=== PATIENT | male | born 1960 | race American Indian/Alaskan Native ===

== ENCOUNTER 2020-10-06 16:47 | Emergency (ER) | payer MEDICARE ==
[2020-10-06 19:14] VITALS: BP 126/74
--- NOTE | 2020-10-06 19:24 | Event Note ---
ED Screening Note Date of service: 10/06/20 Time: 19:22 ED Screening Note: 60-year-old male patient with history of sickle cell disease presents to the emergency department with complaints of chest pain, shortness of breath, left ankle pain, and left foot pain. Patient states he fell down the stairs approximately 2 weeks ago. He is unable to estimate how many steps he fell down. Patient also states he "feels like he is anemic" and "needs a chest x- ray" for his chest pain and shortness of breath. Patient states his last sickle cell crisis began with painful swelling to his left lower extremity. General: Awake, appropriately interactive, no acute distress. Neck: Supple. Full range of motion intact. Cardiovascular: Normal peripheral perfusion. Pulmonary: No respiratory distress. Patient is speaking normally without use of accessory muscles. Skin: No apparent rashes or lesions. Neurological: No facial asymmetry. Speech is clear. Follows commands. Patient is alert and oriented. Musculoskeletal: Tenderness to palpation throughout the left ankle and left foot with significant soft tissue swelling. Patient is favoring his right leg while ambulating. Psych: Cooperative. Appropriate mood and affect. I have greeted and performed a focused rapid initial assessment of this patient. A comprehensive ED assessment and evaluation of the patient, analysis of all test results, and completion of the medical decision-making process will be conducted by additional ED providers. This initial assessment/diagnostic orders/clinical plan/treatment(s) is/are subject to change based on patients health status, clinical progression and re-assessment. Further treatment and workup at subsequent clinical provider's discretion. Patient/guardian urged not to elope from the ED as their condition may be serious if not clinically assessed and managed.
[2020-10-06 20:01] LABS: Hemoglobin 8.2 gm/dl (11.8-15.2); Mean Corpuscular HGB Conc 36 % (32-34); Mean Corpuscular Volume 110 fl (84-94); Platelet Count 273 K/mm3 (140-440); Red Cell Distribution Width 17.9 % (13.2-15.2)
--- NOTE | 2020-10-06 20:15 | XRay Report ---
LEFT ANKLE 3 VIEWS INDICATION / CLINICAL INFORMATION: pain/swelling. COMPARISON: None available. FINDINGS: Diffuse subcutaneous edema. No other significant abnormality Signer Name: Junito Madison MD FACR Signed: 10/06/2020 8:11 PM Workstation Name: [id number]
--- NOTE | 2020-10-06 20:15 | XRay Report ---
LEFT FOOT 3 VIEWS INDICATION / CLINICAL INFORMATION: pain/swelling. COMPARISON: None available. FINDINGS: Mild degenerative change in the first metatarsophalangeal joint. No other significant skeletal abnorm ality Signer Name: Junito Madison MD FACR Signed: 10/06/2020 8:10 PM Workstation Name: [id number]
--- NOTE | 2020-10-06 20:16 | XRay Report ---
CHEST 2 VIEWS INDICATION / CLINICAL INFORMATION: chest pain. COMPARISON: None available. FINDINGS: SUPPORT DEVICES: None. HEART / MEDIASTINUM: No significant abnormality. LUNGS / PLEURA: No significant pulmonary or pleural abnormality. No pneumothorax. ADDITIONAL FINDINGS: No significant additional findings. IMPRESSION: No significant abnormality Signer Name: Junito Madison MD FACR Signed: 10/06/2020 8:11 PM Workstation Name: [id number]
[2020-10-06 20:21] LABS: Alanine Aminotransferase 27 units/L (7-56); Albumin 3.6 g/dL (3.9-5); BUN/Creatinine Ratio 10; Blood Urea Nitrogen 15 mg/dL (9-20); Calcium 8.1 mg/dL (8.4-10.2); Hemolysis Index 14
[2020-10-06 20:58] LABS: RBC Morphology Normal; Total Cells Counted 100
--- NOTE | 2020-10-07 01:56 | Emergency Department Report ---
ED Fall HPI - General Chief Complaint: Extremity Injury, Lower Stated Complaint: SWOLLEN LEFT FOOT Time Seen by Provider: 10/07/20 01:49 Source: patient Mode of arrival: Ambulatory - History of Present Illness Initial Comments: 60-year-old -[place] male past medical history of sickle cell disease, chronic back pain, acid reflux disease/peptic ulcers presents emerged department complaining of fall which occurred about 2 weeks ago and resulted and pain and swelling to his left lower extremities. States preceding the fall he had some some general swelling to the left foot and ankle region but he had worsening and continued to linger since the onset. Reports no numbness or tingling, no fever, chills, sweats sweats. He also reevaluate his be sure that he was not severely anemic and also thought that he has been losing weight over the past 3 to 4 months which may have been consistent with heart failure symptoms and wants to be checked and evaluated for heart failure. States he is not yet followed his primary care provider in regards to these concerns or claims no one she is able to take care of that for him today MD Complaint: fall -: week(s) (2) Fall From: standing - Related Data Previous Rx's Medication Instructions Recorded Last Taken Type Acetaminophen/Codeine [Tylenol 1 tab PO Q6H PRN #10 tab 10/07/20 Unknown Rx /Codeine # 3 tab] Allergies Allergy/AdvReac Type Severity Reaction Status Date / Time ibuprofen AdvReac Nausea Verified 10/06/20 17:36 ED Review of Systems ROS: Stated complaint: SWOLLEN LEFT FOOT Other details as noted in HPI Comment: All other systems reviewed and negative ED Past Medical Hx - Past Medical History Previous Medical History?: Yes Hx GERD: Yes Hx Sickle Cell Disease: Yes Additional medical history: Ulcers - Medications Home Medications: Home Medications Medication Instructions Recorded Confirmed Last Taken Type Acetaminophen/Codeine [Tylenol 1 tab PO Q6H PRN #10 tab 10/07/20 Unknown Rx /Codeine # 3 tab] ED Physical Exam - General Limitations: No Limitations General appearance: alert, in no apparent distress - Head Head exam: Present: atraumatic, normocephalic - Eye Eye exam: Present: normal appearance, PERRL, EOMI Pupils: Present: normal accommodation - ENT ENT exam: Present: normal exam, mucous membranes moist, TM's normal bilaterally - Neck Neck exam: Present: normal inspection, full ROM - Respiratory Respiratory exam: Present: normal lung sounds bilaterally. Absent: respiratory distress, wheezes, rales, rhonchi, chest wall tenderness, accessory muscle use - Cardiovascular Cardiovascular Exam: Present: regular rate, normal rhythm. Absent: systolic murmur, diastolic murmur, rubs, gallop - GI/Abdominal GI/Abdominal exam: Present: soft, normal bowel sounds - Rectal Rectal exam: Present: deferred - Extremities Exam Extremities exam: Present: normal inspection, normal capillary refill, pedal edema (Left lower extremity in area of the ankle and foot third of the tibia region. Pulses 2+ cap refill is brisk no cellulitis no lymphangitis. No induration. No ecchymosis), joint swelling. Absent: calf tenderness - Back Exam Back exam: Present: normal inspection. Absent: CVA tenderness (R), CVA tenderness (L) - Neurological Exam Neurological exam: Present: alert, oriented X3, CN II-XII intact, normal gait. Absent: altered - Psychiatric Psychiatric exam: Present: normal affect, normal mood - Skin Skin exam: Present: warm, dry, intact, normal color. Absent: rash, diaphoretic, erythema, urticaria ED Course Vital Signs 10/06/20 19:13 Temperature 98.5 F Pulse Rate 62 Respiratory 18 Rate Blood Pressure 126/74 [Left] O2 Sat by Pulse 97 Oximetry ED Medical Decision Making - Lab Data Result diagrams: 10/06/20 19:35 10/06/20 19:35 Lab Results 10/06/20 10/06/20 10/06/20 Range/Units 19:35 19:35 19:35 WBC 10.0 (4.5-11.0) K/mm3 RBC 2.10 L (3.65-5.03) M/mm3 Hgb 8.2 L (11.8-15.2) gm/dl Hct 23.0 L (35.5-45.6) % MCV 110 H (84-94) fl MCH 39 H (28-32) pg MCHC 36 H (32-34) % RDW 17.9 H (13.2-15.2) % Plt Count 273 (140-440) K/mm3 Add Manual Diff Complete Total Counted 100 Seg Neuts % (Manual) 51.0 (40.0-70.0) % Lymphocytes % (Manual) 30.0 (13.4-35.0) % Monocytes % (Manual) 16.0 H (0.0-7.3) % Eosinophils % (Manual) 2.0 (0.0-4.3) % Basophils % (Manual) 1.0 (0.0-1.8) % Nucleated RBC % 7.0 H (0.0-0.9) % Seg Neutrophils # Man 5.1 (1.8-7.7) K/mm3 Band Neutrophils # 0.0 K/mm3 Lymphocytes # (Manual) 3.0 (1.2-5.4) K/mm3 Abs React Lymphs (Man) 0.0 K/mm3 Monocytes # (Manual) 1.6 H (0.0-0.8) K/mm3 Eosinophils # (Manual) 0.2 (0.0-0.4) K/mm3 Basophils # (Manual) 0.1 (0.0-0.1) K/mm3 Metamyelocytes # 0.0 K/mm3 Myelocytes # 0.0 K/mm3 Promyelocytes # 0.0 K/mm3 Blast Cells # 0.0 K/mm3 WBC Morphology Not Reportable Hypersegmented Neuts Not Reportable Hyposegmented Neuts Not Reportable Hypogranular Neuts Not Reportable Smudge Cells Not Reportable Toxic Granulation Not Reportable Toxic Vacuolation Not Reportable Dohle Bodies Not Reportable Pelger-Huet Anomaly Not Reportable Linda Rods Not Reportable Platelet Estimate Not Reportable Clumped Platelets Not Reportable Plt Clumps, EDTA Not Reportable Large Platelets Not Reportable Giant Platelets Not Reportable Platelet Satelliting Not Reportable Plt Morphology Comment Not Reportable RBC Morphology Normal Dimorphic RBCs Not Reportable Polychromasia Not Reportable Hypochromasia Not Reportable Poikilocytosis Not Reportable Anisocytosis Not Reportable Microcytosis Not Reportable Macrocytosis Not Reportable Spherocytes Not Reportable Pappenheimer Bodies Not Reportable Sickle Cells Not Reportable Target Cells Not Reportable Tear Drop Cells Not Reportable Ovalocytes Not Reportable Helmet Cells Not Reportable [place] Bodies Not Reportable [place] Rings Not Reportable [place] Cells Not Reportable Bite Cells Not Reportable Crenated Cell Not Reportable Elliptocytes Not Reportable Acanthocytes (Spur) Not Reportable Rouleaux Not Reportable Hemoglobin C Crystals Not Reportable Schistocytes Not Reportable Malaria parasites Not Reportable Percent Retic 11.78 H (0.78-2.58) % Job Bodies Not Reportable Hem Pathologist Commnt No Sodium 137 (137-145) mmol/L Potassium 4.0 (3.6-5.0) mmol/L Chloride 102.1 (98-107) mmol/L Carbon Dioxide 22 (22-30) mmol/L Anion Gap 17 mmol/L BUN 15 (9-20) mg/dL Creatinine 1.5 H (0.8-1.3) mg/dL Estimated GFR 58 ml/min BUN/Creatinine Ratio 10 % Glucose 91 (75-100) mg/dL Calcium 8.1 L (8.4-10.2) mg/dL Magnesium 1.80 (1.7-2.3) mg/dL Total Bilirubin 4.00 H (0.1-1.2) mg/dL AST 51 H (5-40) units/L ALT 27 (7-56) units/L Alkaline Phosphatase 137 H (35-129) units/L Troponin T < 0.010 (0.00-0.029) ng/mL Total Protein 8.2 (6.3-8.2) g/dL Albumin 3.6 L (3.9-5) g/dL Albumin/Globulin Ratio 0.8 % Blood Type B POSITIVE Antibody Screen Negative - Radiology Data Radiology results: report reviewed [address] [place] [id number] XRay Report Signed Patient: NICA VIEIRA MR#: [id number] 470 : 1960 Acct:[id number] Age/Sex: 60 / M ADM Date: 10/06/20 Loc: ED Attending Dr: Ordering Physician: DAMON STEIN Date of Service: 10/06/20 Procedure(s): XR chest routine 2V Accession Number(s): [id number] cc: DAMON STEIN Fluoro Time In Minutes: CHEST 2 VIEWS INDICATION / CLINICAL INFORMATION: chest pain. COMPARISON: None available. FINDINGS: SUPPORT DEVICES: None. HEART / MEDIASTINUM: No significant abnormality. LUNGS / PLEURA: No significant pulmonary or pleural abnormality. No pneumothorax. ADDITIONAL FINDINGS: No significant additional findings. IMPRESSION: No significant abnormality Signer Name: Junito Madison MD FACR Signed: 10/06/2020 8:11 PM Workstation Name: [id number] Transcribed By: MS Dictated By: Junito Madison MD Electronically Authenticated By: Junito Madison MD Signed Date/Time: 10/06/202010 DD/ 10 TD/TT: [address] [place] [address] XRay Report Signed Patient: NICA VIEIRA MR#: [id number] : 1960 Acct:[id number] Age/Sex: 60 / M ADM Date: 10/06/20 Loc: ED Attending Dr: Ordering Physician: DAMON STEIN Date of Service: 10/06/20 Procedure(s): XR ankle 3+V LT Accession Number(s): [id number] cc: DAMON STEIN Fluoro Time In Minutes: LEFT ANKLE 3 VIEWS INDICATION / CLINICAL INFORMATION: pain/swelling. COMPARISON: None available. FINDINGS: Diffuse subcutaneous edema. No other significant abnormality Signer Name: Junito Madison MD FACR Signed: 10/06/2020 8:11 PM Workstation Name: [id number] Transcribed By: MS Dictated By: Junito Madison MD Electronically Authenticated By: Junito Madison MD Signed Date/Time: 10/06/202010 DD/ 09 TD/TT: Print Cancel - Medical Decision Making 60-year-old male presents emerged department status post trip and fall suspicious of injury to his lower extremity was found to have no fractures I have otherwise swelling present to the left ankle suggestive of a sprain. The joint was stable he was advised on cold therapy as well as Nikko wrap and analgesic control and management of his pain. He was suspicious for heart failure states he wanted to be evaluated to make sure he did not have heart failure advised patient need to follow-up with cardiology for definitive treatment and management of this issue as his symptoms complaints or findings on examination did not support a current assessment of heart failure. There is a request a couple rounds of morphine prior to discharge as he states that the only thing that will help manage his pain. Critical care attestation.: If time is entered above; I have spent that time in minutes in the direct care of this critically ill patient, excluding procedure time. ED Disposition Clinical Impression: Lower extremity edema, Left ankle strain Disposition: TO HOME OR SELFCARE Is pt being admited?: No Does the pt Need Aspirin: No Condition: Stable Instructions: How to Use a Stirrup Ankle Brace, [id number], Elastic Bandage and RICE Therapy, How to Use Cold Therapy, Peripheral Edema Prescriptions: Acetaminophen/Codeine [Tylenol /Codeine # 3 tab] 1 tab PO Q6H PRN #10 tab PRN Reason: pain Referrals: PRIMARY CAREMD [Primary Care Provider] - 3-5 Days RUBENS MARIE MD [Staff Physician] - 3-5 Days BRAVO VIEIRA MD [Staff Physician] - 3-5 Days
[2020-10-07] MEDS ORDERED: ONDANSETRON 4 MG ODT TAB PO STA (02:41)
[2020-10-07] MEDS ORDERED: MORPHINE 4 MG/1 ML INJ IM STA (02:41)
== END 2020-10-07 03:10 | disposition home or self-care (01) ==
LOC: ED 16:47
DX: S96.912A Strain of unspecified muscle and tendon at ankle and foot level, left foot, initial encounter (principal); R60.0 Localized edema; K21.9 Gastro-esophageal reflux disease without esophagitis; Z88.8 Allergy status to other drugs, medicaments and biological substances; Z79.899 Other long term (current) drug therapy; X58.XXXA Exposure to other specified factors, initial encounter; Y93.89 Activity, other specified; Y92.89 Other specified places as the place of occurrence of the external cause; Y99.8 Other external cause status
CPT/HCPCS: 36415; 71046; 73610; 73630; 80053; 83735; 84484; 85007; 85025; 85045; 86850; 86900; 86901; 96372; 99284; J2270; Q0162

== ENCOUNTER 2022-01-01 17:40 | Inpatient (IN) | payer MEDICARE ==
--- NOTE | 2022-01-01 18:01 | Event Note ---
Date: 01/01/22 Medical screening examination note: 61-year-old gentleman brought to the hospital by EMS with an EMS articulated complaint of painless tachycardia. Patient has a history of atrial fibrillation or flutter, status post ablation. He also reports a history of hypertension. The patient reports that he goes to [facility]. The patient does not know s pecifically what medications he takes. Patient is tachycardic to 120, but otherwise, blood pressure stable, protecting airway, mildly anxious, but not in significant distress. Obtain appropriate laboratory studies, twelve-lead EKG, detailed history and physical to be performed by myself or oncoming provider.
--- NOTE | 2022-01-01 18:35 | XRay Report ---
CHEST 1 VIEW 01/01/2022 6:19 PM INDICATION / CLINICAL INFORMATION: Tachycardia. COMPARISON: None available. FINDINGS: SUPPORT DEVICES: None. HEART / MEDIASTINUM: No significant abnormality. LUNGS / PLEURA: No significant pulmonary or pleural abnormality. No pneumothorax. ADDITIONAL FINDINGS: No significant additional findings. IMPRESSION: 1. No acute findings. Signer Name: German Ramesh MD Signed: 01/01/2022 6:30 PM Workstation Name: [id number]
[2022-01-01 19:00] LABS: Basophils # (Auto) 0.1 K/mm3 (0.0-0.1); Basophils % (Auto) 1.2 % (0.0-1.8); Eosinophils # (Auto) 0.1 K/mm3 (0.0-0.4); Eosinophils % (Auto) 0.7 % (0.0-4.3); Hematocrit 25.8 % (35.5-45.6); Hemoglobin 9.1 gm/dl (11.8-15.2); Lymphocytes % (Auto) 10.1 % (13.4-35.0); Mean Corpuscular HGB Conc 35 % (32-34); Mean Corpuscular Volume 105 fl (84-94); Monocytes # (Auto) 1.3 K/mm3 (0.0-0.8); Monocytes % (Auto) 13.1 % (0.0-7.3); Platelet Count 244 K/mm3 (140-440); Red Blood Count 2.45 M/mm3 (3.65-5.03); Red Cell Distribution Width 18.8 % (13.2-15.2)
[2022-01-01 19:10] LABS: INR 1.08 (0.87-1.13)
[2022-01-01 19:23] LABS: Alanine Aminotransferase 29 units/L (7-56); BUN/Creatinine Ratio 15; Blood Urea Nitrogen 20 mg/dL (9-20); Calcium 8.5 mg/dL (8.4-10.2); Hemolysis Index 161
[2022-01-01] MEDS ORDERED: LACTATED RINGERS 1,000 ML IV ONE (20:43)
[2022-01-01] MEDS ORDERED: diazePAM 10 MG/2 ML SYRINGE IV ONE (20:43)
[2022-01-01] MEDS ORDERED: LORazepam 2 MG/ML VIAL IV PRN ×3 (20:43)
--- NOTE | 2022-01-01 20:46 | Emergency Department Report ---
ED General Adult HPI - General Chief complaint: Dizziness Stated complaint: TACHYCARDIA Time Seen by Provider: 01/01/22 20:12 Source: patient, EMS (Verbal report received from emergency medical services. EMS documentation not available at time of chart dictation ), RN notes reviewed, old records reviewed Mode of arrival: Stretcher Limitations: No Limitations - History of Present Illness Initial comments: The patient was evaluated in the emergency department for symptoms described in the history of present illness. He/she was evaluated in the context of the global COVID-19 pandemic, which necessitated consideration that the patient might be at risk for infection with the virus that causes COVID-19. Institutional protocols and algorithms that pertain to the evaluation of patients at risk for COVID-19 are in a state of rapid change based on in formation released by regulatory bodies including the CDC and federal and state organizations. These policies and algorithms were followed during the patient's care in the emergency department. Please note that these policies, procedures and recommendations changed on a rapid basis. This patient is a 61-year-old gentleman, who has not been sexually active for 2 years, with a history of sickle cell, a flutter, status post ablation, not currently on systemic anticoagulation, presenting to the department today with a primary complaints of chest pressure, and rapid heartbeat. No headache, neck pain, abdominal pain, vomiting, diaphoresis. On review of systems, endorses sensation of bug crawling and tactile hallucinations on the face for about 6 months. He is not homicidal suicidal. He has a nonspecific nonblanching macular rash on his bilateral palms, chest, and abdomen. He reports no sexual activity and he reports no IV drug use. He still has his spleen, but reports a distant history of cholecystectomy. He does not recall the medications that he takes. Severity scale (0 -10): 0 Consistency: constant Improves with: none Worsens with: none - Related Data Previous Rx's Medication Instructions Recorded Last Taken Type Acetaminophen/Codeine [Tylenol 1 tab PO Q6H PRN #10 tab 10/07/20 Unknown Rx /Codeine # 3 tab] Allergies Allergy/AdvReac Type Severity Reaction Status Date / Time ibuprofen AdvReac Nausea Verified 10/06/20 17:36 ED Review of Systems ROS: Stated complaint: TACHYCARDIA Other details as noted in HPI Constitutional: denies: fever ENT: denies: epistaxis Respiratory: denies: cough Cardiovascular: palpitations. denies: chest pain Gastrointestinal: abdominal pain. denies: hematemesis, melena, hematochezia Genitourinary: denies: dysuria Musculoskeletal: denies: back pain, arthralgia, myalgia Skin: rash, lesions Neurological: denies: weakness, confusion Psychiatric: auditory hallucinations, visual hallucinations. denies: homicidal thoughts, suicidal thoughts Hematological/Lymphatic: denies: easy bleeding ED Past Medical Hx - Past Medical History Hx GERD: Yes Hx Sickle Cell Disease: Yes Additional medical history: Ulcers, cardiac hx - Surgical History Additional Surgical History: ablation - Medications Home Medications: Home Medications Medication Instructions Recorded Confirmed Last Taken Type Acetaminophen/Codeine [Tylenol 1 tab PO Q6H PRN #10 tab 10/07/20 Unknown Rx /Codeine # 3 tab] ED Physical Exam - General Limitations: No Limitations General appearance: alert, anxious - Head Head exam: Present: atraumatic, normocephalic - Eye Eye exam: Present: normal appearance, EOMI. Absent: nystagmus - ENT ENT exam: Present: normal orophraynx, mucous membranes moist, normal external ear exam, other (Minimal tongue fasciculations noted) - Neck Neck exam: Present: normal inspection, full ROM. Absent: tenderness, meningismus - Respiratory Respiratory exam: Present: normal lung sounds bilaterally. Absent: respiratory distress, wheezes, rales, rhonchi, stridor - Cardiovascular Cardiovascular Exam: Present: normal rhythm, tachycardia, normal heart sounds. Absent: bradycardia, systolic murmur, diastolic murmur, rubs, gallop - GI/Abdominal GI/Abdominal exam: Present: soft. Absent: distended, tenderness, guarding, rebound, rigid, pulsatile mass - Rectal Rectal exam: Present: deferred - Extremities Exam Extremities exam: Present: full ROM, other (2+ pulses noted in the bilateral upper and lower extremities. There is no palpable cord. negative Homans sign. Muscular compartments are soft. The pelvis is stable.). Absent: normal inspection, pedal edema, calf tenderness - Back Exam Back exam: Present: normal inspection. Absent: tenderness, CVA tenderness (R), CVA tenderness (L), paraspinal tenderness, vertebral tenderness - Neurological Exam Neurological exam: Present: alert, oriented X3, other (No facial droop. Tongue midline. Extraocular movements intact bilaterally. Facial sensation intact to light touch in V1, V2, V3 distribution bilaterally. 5 and a 5 strength in 4 e xtremities. Sensation intact to light touch in 4 extremities.). Absent: motor sensory deficit - Psychiatric Psychiatric exam: Present: anxious. Absent: homicidal ideation, suicidal ideation - Skin Skin exam: Present: warm, dry, intact, rash (Nonblanching macules on the bilateral palms, chest, abdomen and thorax). Absent: diaphoretic, erythema, urticaria, vesicles, pallor, abrasion, ecchymosis ED Course Vital Signs 01/01/22 01/01/22 17:51 20:34 Temperature 99.3 F 98.5 F Pulse Rate 120 H 115 H Respiratory 18 18 Rate Blood Pressure 118/86 167/92 [Left] O2 Sat by Pulse 99 98 Oximetry - Reevaluation(s) Reevaluation #1: 01/01/22 21:58 Differential diagnosis, include but not limited to: Electrolyte derangement, thyroid derangement, sickle cell anemia, macrocytic anemia, alcohol withdrawal, A. fib/flutter with RVR, syphilis, pulmonary embolism 61-year-old gentleman who was tachycardic, but awake, alert, oriented, sober of sound mind, with a GCS of 15, presenting with a primary complaint of tachyca rdia. EKG shows a narrow complex tachycardia, which to me appears to be consistent with atrial flutter with 2:1 conduction. His laboratory studies show chronic microcytic anemia, with unremarkable iron studies. His TSH is nonactionable. He also has nonblanching macules on his palms, chest, and thorax, denies sexual contact, suspicious for syphilis. We will obtain CT scan of the brain. Unfortunately, not able to obtain CT angiogram chest secondary to inability to establish 20-gauge IV access in the antecubital fossa as required by our protocol. Should no bleed or contraindication be noted on CT scan brain, we will empirically anticoagulate the patient, and ordered nuclear medicine study. We will continue diltiazem trial bolusing, and if necessary, initiated diltiazem drip, or switch to metoprolol. I personally administered 10 mg of diltiazem to this patient, without change in rate. In addition, he received 5 mg of Valium, without significant change in rate. This patient is agreeable to admission and hospitalization. 01/01/22 21:59 01/01/22 22:38 CT scan brain negative for acute findings. Lovenox ordered. Went back to patient's bedside with additional diltiazem. 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 Currently, heart rate in the 90s, with variable flutter conduction. Patient is agreeable to admission hospitalization. Oral diltiazem is ordered. Hospital physician, Dr. Hale to admit to [id number] At this point time, I think and pulmonary embolism is very unlikely. Lovenox will cover in case there is a pulmonary embolism. I have ordered a nuclear medicine study, which we cannot obtain at this point in time, then we will defer to the inpatient team to followed up ED Medical Decision Making - Lab Data Result diagrams: 01/01/22 18:38 01/01/22 18:38 Vital Signs 01/01/22 01/01/22 17:51 20:34 Temperature 99.3 F 98.5 F Pulse Rate 120 H 115 H Respiratory 18 18 Rate Blood Pressure 118/86 167/92 [Left] O2 Sat by Pulse 99 98 Oximetry Lab Results 01/01/22 01/01/22 01/01/22 Range/Units 18:38 18:38 18:38 WBC 9.9 (4.5-11.0) K/mm3 RBC 2.45 L (3.65-5.03) M/mm3 Hgb 9.1 L (11.8-15.2) gm/dl Hct 25.8 L (35.5-45.6) % MCV 105 H (84-94) fl MCH 37 H (28-32) pg MCHC 35 H (32-34) % RDW 18.8 H (13.2-15.2) % Plt Count 244 (140-440) K/mm3 Lymph % (Auto) 10.1 L (13.4-35.0) % Cache % (Auto) 13.1 H (0.0-7.3) % Eos % (Auto) 0.7 (0.0-4.3) % Baso % (Auto) 1.2 (0.0-1.8) % Lymph # (Auto) 1.0 L (1.2-5.4) K/mm3 Cache # (Auto) 1.3 H (0.0-0.8) K/mm3 Eos # (Auto) 0.1 (0.0-0.4) K/mm3 Baso # (Auto) 0.1 (0.0-0.1) K/mm3 Seg Neutrophils % 74.9 H (40.0-70.0) % Seg Neutrophils # 7.4 (1.8-7.7) K/mm3 PT 15.5 H (12.2-14.9) Sec. INR 1.08 (0.87-1.13) Sodium 138 (137-145) mmol/L Potassium 5.3 H (3.6-5.0) mmol/L Chloride 108.0 H (98-107) mmol/L Carbon Dioxide 18 L (22-30) mmol/L Anion Gap 17 mmol/L BUN 20 (9-20) mg/dL Creatinine 1.3 (0.8-1.3) mg/dL Estimated GFR > 60 ml/min BUN/Creatinine Ratio 15 % Glucose 97 (75-100) mg/dL Calcium 8.5 (8.4-10.2) mg/dL Magnesium 1.70 (1.7-2.3) mg/dL Iron (49-181) ug/dL TIBC (250-450) mcg/dL Ferritin (30.0-300.0) ng/mL Total Bilirubin 4.30 H (0.1-1.2) mg/dL AST 73 H (5-40) units/L ALT 29 (7-56) units/L Alkaline Phosphatase 163 H (35-129) units/L Troponin T (0.00-0.029) ng/mL Total Protein 8.4 H (6.3-8.2) g/dL Albumin 4.0 (3.9-5) g/dL Albumin/Globulin Ratio 0.9 % TSH (0.270-4.200) mlU/mL Free T4 (0.76-1.46) ng/dL 01/01/22 01/01/22 01/01/22 Range/Units 18:38 18:38 20:40 WBC (4.5-11.0) K/mm3 RBC (3.65-5.03) M/mm3 Hgb (11.8-15.2) gm/dl Hct (35.5-45.6) % MCV (84-94) fl MCH (28-32) pg MCHC (32-34) % RDW (13.2-15.2) % Plt Count (140-440) K/mm3 Lymph % (Auto) (13.4-35.0) % Cache % (Auto) (0.0-7.3) % Eos % (Auto) (0.0-4.3) % Baso % (Auto) (0.0-1.8) % Lymph # (Auto) (1.2-5.4) K/mm3 Cache # (Auto) (0.0-0.8) K/mm3 Eos # (Auto) (0.0-0.4) K/mm3 Baso # (Auto) (0.0-0.1) K/mm3 Seg Neutrophils % (40.0-70.0) % Seg Neutrophils # (1.8-7.7) K/mm3 PT (12.2-14.9) Sec. INR (0.87-1.13) Sodium (137-145) mmol/L Potassium (3.6-5.0) mmol/L Chloride (98-107) mmol/L Carbon Dioxide (22-30) mmol/L Anion Gap mmol/L BUN (9-20) mg/dL Creatinine (0.8-1.3) mg/dL Estimated GFR ml/min BUN/Creatinine Ratio % Glucose (75-100) mg/dL Calcium (8.4-10.2) mg/dL Magnesium (1.7-2.3) mg/dL Iron (49-181) ug/dL TIBC (250-450) mcg/dL Ferritin (30.0-300.0) ng/mL Total Bilirubin (0.1-1.2) mg/dL AST (5-40) units/L ALT (7-56) units/L Alkaline Phosphatase (35-129) units/L Troponin T < 0.010 (0.00-0.029) ng/mL Total Protein (6.3-8.2) g/dL Albumin (3.9-5) g/dL Albumin/Globulin Ratio % TSH 2.470 (0.270-4.200) mlU/mL Free T4 1.27 (0.76-1.46) ng/dL 01/01/22 01/01/22 Range/Units 20:40 21:07 WBC (4.5-11.0) K/mm3 RBC (3.65-5.03) M/mm3 Hgb (11.8-15.2) gm/dl Hct (35.5-45.6) % MCV (84-94) fl MCH (28-32) pg MCHC (32-34) % RDW (13.2-15.2) % Plt Count (140-440) K/mm3 Lymph % (Auto) (13.4-35.0) % Cache % (Auto) (0.0-7.3) % Eos % (Auto) (0.0-4.3) % Baso % (Auto) (0.0-1.8) % Lymph # (Auto) (1.2-5.4) K/mm3 Cache # (Auto) (0.0-0.8) K/mm3 Eos # (Auto) (0.0-0.4) K/mm3 Baso # (Auto) (0.0-0.1) K/mm3 Seg Neutrophils % (40.0-70.0) % Seg Neutrophils # (1.8-7.7) K/mm3 PT (12.2-14.9) Sec. INR (0.87-1.13) Sodium (137-145) mmol/L Potassium (3.6-5.0) mmol/L Chloride (98-107) mmol/L Carbon Dioxide (22-30) mmol/L Anion Gap mmol/L BUN (9-20) mg/dL Creatinine (0.8-1.3) mg/dL Estimated GFR ml/min BUN/Creatinine Ratio % Glucose (75-100) mg/dL Calcium (8.4-10.2) mg/dL Magnesium (1.7-2.3) mg/dL Iron 185 H (49-181) ug/dL TIBC 300 (250-450) mcg/dL Ferritin 507.5 H (30.0-300.0) ng/mL Total Bilirubin (0.1-1.2) mg/dL AST (5-40) units/L ALT (7-56) units/L Alkaline Phosphatase (35-129) units/L Troponin T (0.00-0.029) ng/mL Total Protein (6.3-8.2) g/dL Albumin (3.9-5) g/dL Albumin/Globulin Ratio % TSH (0.270-4.200) mlU/mL Free T4 (0.76-1.46) ng/dL - EKG Data 01/01/22 21:56 The emergency room EKG is interpreted at 20: 24 This is a narrow complex tachycardia, with a rate of 117 bpm, with a left axis deviation, and a left anterior fascicular block. There is poor R wave progression. Suspect a flutter, with 2: 1 conduction. - Radiology Data Radiology results: pending, report reviewed, image reviewed CHEST 1 VIEW 01/01/2022 6:19 PM INDICATION / CLINICAL INFORMATION: Tachycardia. COMPARISON: None available. FINDINGS: SUPPORT DEVICES: None. HEART / MEDIASTINUM: No significant abnormality. LUNGS / PLEURA: No significant p ulmonary or pleural abnormality. No pneumothorax. ADDITIONAL FINDINGS: No significant additional findings. IMPRESSION: 1. No acute findings. Signer Name: German Ramesh MD Signed: 01/01/2022 5:30 PM Workstation Name: [id number] Critical Care Time: Yes Critical care time in (mins) excluding proc time.: 35 Critical care attestation.: If time is entered above; I have spent that time in minutes in the direct care of this critically ill patient, excluding procedure time. ED Disposition Clinical Impression: Tactile hallucination, Macrocytic anemia, Macular rash, Atrial flutter with rapid ventricular response Disposition: ADMITTED INPATIENT Is pt being admited?: Yes Does the pt Need Aspirin: No Condition: Good Referrals: NUPUR MALDONADO MD [Primary Care Provider] - 3-5 Days
[2022-01-01 21:39] LABS: Total Iron Binding Capacity 300 mcg/dL (250-450)
[2022-01-01 21:45] LABS: Iron 185 ug/dL (49-181)
[2022-01-01] MEDS ORDERED: dilTIAZem 25 MG/5 ML INJ IV ONE ×2 (21:50→21:54)
--- NOTE | 2022-01-01 22:22 | Cat Scan Report ---
CT HEAD WITHOUT CONTRAST INDICATION / CLINICAL INFORMATION: Tactile hallucinations. TECHNIQUE: All CT scans at this location are performed using CT dose reduction for ALARA by means of automated exposure control. COMPARISON: None available. FINDINGS: HEMORRHAGE: None. EXTRA-AXIAL SPACES: Normal in size and morphology for the patient's age. VENTRICULAR SYSTEM: Normal in size and morphology for the patient's age. CEREBRAL PARENCHYMA: No significant abnormality. No acute territorial infarct. MIDLINE SHIFT / HERNIATION: None. CEREBELLUM / BRAINSTEM: No significant abnormality. ORBITS: Normal as visualized. SOFT TISSUES: No significant abnormality. SKULL: No significant abnormality. PARANASAL SINUSES / MASTOID AIR CELLS: Normal as visualized. ADDITIONAL FINDINGS: None. IMPRESSION: 1. No acute intracranial abnormality. Signer Name: Jordan Banegas MD Signed: 01/01/2022 10:18 PM Workstation Name: [id number]
[2022-01-01] MEDS ORDERED: ENOXAPARIN 100 MG/1 ML INJ SUB-Q STA (22:37)
[2022-01-01] MEDS ORDERED: dilTIAZem 30 MG TAB PO ONE (22:37)
[2022-01-01] MEDS ORDERED: ONDANSETRON 4 MG/2 ML INJ IV PRN (22:39)
[2022-01-01] MEDS ORDERED: ACETAMINOPHEN 325 MG TAB PO PRN (22:39)
[2022-01-02] MEDS ORDERED: dilTIAZem 30 MG TAB PO ONE (03:30)
[2022-01-02] MEDS ORDERED: ENOXAPARIN 100 MG/1 ML INJ SUB-Q STA (03:30)
[2022-01-02] MEDS ORDERED: MORPHINE 4 MG/1 ML INJ IV PRN (03:48)
[2022-01-02] MEDS ORDERED: traMADol 50 MG TAB PO PRN (03:48)
[2022-01-02] MEDS ORDERED: ACETAMINOPHEN 325 MG TAB PO PRN (03:48)
[2022-01-02] MEDS ORDERED: NITROGLYCERIN 0.4 MG TAB SUBL SL PRN (03:48)
--- NOTE | 2022-01-02 03:56 | History and Physical Report ---
History of Present Illness Date of examination: 01/02/22 Date of admission: 01/01/22 22:39 Chief complaint: Dizziness Tachycardia History of present illness: 61-year-old gentleman with history of sickle cell, a flutter, status post ablation, not currently on systemic anticoagulation, presenting to the department today with a primary complaints of chest pressure, and rapid heartbeat. No headache, neck pain, abdominal pain, vomiting, diaphoresis. On review of systems, endorses sensation of bug crawling and tactile hallucinations on the face for about 6 months.He is not homicidal suicidal. He has a nonspecific nonblanching macular rash on his bilateral palms, chest, and abdomen. He reports no sexual activity and he reports no IV drug use. He still has his spleen, but reports a distant history of cholecystectomy. He does not recall the medications that he takes. In the emergency room EKG showed narrow complex tachycardia, with a rate of 117 bpm, with a left axis deviation, and a left anterior fascicular block. There is poor R wave progression. Suspect a flutter, with 2: [address] scan brain negative for acute findings. Lovenox ordered. Went back to patient's bedside with additional diltiazem. 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 Currently, heart rate in the 90s, with variable flutter conduction. Past History Past Medical History: GERD, other (Sickle cell disease ulcers and cardiac history) Past Surgical History: Other (Ablation) Social history: no significant social history Family history: hypertension Medications and Allergies Allergies Allergy/AdvReac Type Severity Reaction Status Date / Time ibuprofen AdvReac Nausea Verified 10/06/20 17:36 Home Medications Medication Instructions Recorded Confirmed Last Taken Type Acetaminophen/Codeine [Tylenol 1 tab PO Q6H PRN #10 tab 10/07/20 Unknown Rx /Codeine # 3 tab] Active Meds: Active Medications Acetaminophen (Acetaminophen 325 Mg Tab) 650 mg PO Q4H PRN PRN Reason: Pain MILD(1-3)/Fever >100.5/CAR Lorazepam (Lorazepam 2 Mg/Ml Vial) 2 mg IV Q1HR PRN PRN Reason: CIWA-Ar 8-15 Lorazepam (Lorazepam 2 Mg/Ml Vial) 4 mg IV Q1HR PRN PRN Reason: CIWA-Ar 16-25 Lorazepam (Lorazepam 2 Mg/Ml Vial) 4 mg IV Q15MIN PRN PRN Reason: CIWA-Ar >25 Ondansetron HCl (Ondansetron 4 Mg/2 Ml Inj) 4 mg IV Q8H PRN PRN Reason: Nausea And Vomiting Sodium Chloride (Sodium Chloride 0.9% 10 Ml Flush Syringe) 10 ml IV BID JYOTI Sodium Chloride (Sodium Chloride 0.9% 10 Ml Flush Syringe) 10 ml IV PRN PRN PRN Reason: LINE FLUSH Review of Systems All systems: negative Cardiovascular: palpitations, other (Tachycardia dizziness) Exam - Constitutional Vitals: Temp Pulse Resp BP Pulse Ox 98.5 F 112 H 18 152/78 98 01/01/22 20:34 01/02/22 02:46 01/01/22 20:34 01/02/22 02:46 01/01/22 20:34 General appearance: Present: no acute distress, well-nourished - EENT Eyes: Present: PERRL ENT: hearing intact, clear oral mucosa - Neck Neck: Present: supple, normal ROM - Respiratory Respiratory effort: normal Respiratory: bilateral: CTA - Cardiovascular Heart Sounds: Present: S1 & S2. Absent: rub, click - Extremities Extremities: pulses symmetrical, No edema Peripheral Pulses: within normal limits - Abdominal General gastrointestinal: Present: soft, non-tender, non-distended, normal bowel sounds Male genitourinary: Present: normal - Integumentary Integumentary: Present: clear, warm, dry - Musculoskeletal Musculoskeletal: gait normal, strength equal bilaterally - Psychiatric Psychiatric: appropriate mood/affect, intact judgment & insight - Neurologic Neurologic: CNII-XII intact, moves all extremities HEART Score - HEART Score Troponin: Troponin T < 0.010 ng/mL (0.00-0.029) 01/01/22 20:40 Results - Labs CBC & Chem 7: 01/01/22 18:38 01/01/22 18:38 Labs: Laboratory Last Values WBC 9.9 K/mm3 (4.5-11.0) 01/01/22 18:38 RBC 2.45 M/mm3 (3.65-5.03) L 01/01/22 18:38 Hgb 9.1 gm/dl (11.8-15.2) L 01/01/22 18:38 Hct 25.8 % (35.5-45.6) L 01/01/22 18:38 MCV 105 fl (84-94) H 01/01/22 18:38 MCH 37 pg (28-32) H 01/01/22 18:38 MCHC 35 % (32-34) H 01/01/22 18:38 RDW 18.8 % (13.2-15.2) H 01/01/22 18:38 Plt Count 244 K/mm3 (140-440) 01/01/22 18:38 Lymph % (Auto) 10.1 % (13.4-35.0) L 01/01/22 18:38 Casey % (Auto) 13.1 % (0.0-7.3) H 01/01/22 18:38 Eos % (Auto) 0.7 % (0.0-4.3) 01/01/22 18:38 Baso % (Auto) 1.2 % (0.0-1.8) 01/01/22 18:38 Lymph # (Auto) 1.0 K/mm3 (1.2-5.4) L 01/01/22 18:38 Casey # (Auto) 1.3 K/mm3 (0.0-0.8) H 01/01/22 18:38 Eos # (Auto) 0.1 K/mm3 (0.0-0.4) 01/01/22 18:38 Baso # (Auto) 0.1 K/mm3 (0.0-0.1) 01/01/22 18:38 Seg Neutrophils % 74.9 % (40.0-70.0) H 01/01/22 18:38 Seg Neutrophils # 7.4 K/mm3 (1.8-7.7) 01/01/22 18:38 PT 15.5 Sec. (12.2-14.9) H 01/01/22 18:38 INR 1.08 (0.87-1.13) 01/01/22 18:38 D-Dimer 1430.44 ng/mlDDU (0-234) H 01/01/22 21:07 Sodium 138 mmol/L (137-145) 01/01/22 18:38 Potassium 5.3 mmol/L (3.6-5.0) H 01/01/22 18:38 Chloride 108.0 mmol/L (98-107) H 01/01/22 18:38 Carbon Dioxide 18 mmol/L (22-30) L 01/01/22 18:38 Anion Gap 17 mmol/L 01/01/22 18:38 BUN 20 mg/dL (9-20) 01/01/22 18:38 Creatinine 1.3 mg/dL (0.8-1.3) 01/01/22 18:38 Estimated GFR > 60 ml/min 01/01/22 18:38 BUN/Creatinine Ratio 15 % 01/01/22 18:38 Glucose 97 mg/dL (75-100) 01/01/22 18:38 Calcium 8.5 mg/dL (8.4-10.2) 01/01/22 18:38 Magnesium 1.70 mg/dL (1.7-2.3) 01/01/22 18:38 Iron 185 ug/dL (49-181) H 01/01/22 21:07 TIBC 300 mcg/dL (250-450) 01/01/22 21:07 Ferritin 507.5 ng/mL (30.0-300.0) H 01/01/22 20:40 Total Bilirubin 4.30 mg/dL (0.1-1.2) H 01/01/22 18:38 AST 73 units/L (5-40) H 01/01/22 18:38 ALT 29 units/L (7-56) 01/01/22 18:38 Alkaline Phosphatase 163 units/L (35-129) H 01/01/22 18:38 Troponin T < 0.010 ng/mL (0.00-0.029) 01/01/22 20:40 Total Protein 8.4 g/dL (6.3-8.2) H 01/01/22 18:38 Albumin 4.0 g/dL (3.9-5) 01/01/22 18:38 Albumin/Globulin Ratio 0.9 % 01/01/22 18:38 TSH 2.470 mlU/mL (0.270-4.200) 01/01/22 18:38 Free T4 1.27 ng/dL (0.76-1.46) 01/01/22 18:38 Salicylates < 0.3 mg/dL (2.8-20.0) L 01/01/22 21:07 Acetaminophen 5.0 ug/mL (10.0-30.0) L 01/01/22 21:07 Plasma/Serum Alcohol 0.01 % (0-0.07) 01/01/22 21:07 Syphilis IgG/IgM Ab Nonreactive (NonReactive) 01/01/22 20:48 - Imaging and Cardiology Chest x-ray: report reviewed CT Scan - head: report reviewed Assessment and Plan VTE prophylaxis?: Chemical Plan of care discussed with patient/family: Yes - Patient Problems (1) Atrial flutter with rapid ventricular response Current Visit: Yes Status: Acute Plan to address problem: Admit the patient to the medical telemetry. Aspirin 325 mg p.o. daily. Lipitor 40 mg p.o. daily. Lopressor 25 mg p.o. twice daily. Lovenox 1 mg/kg SQ every 12 hours. Echocardiogram. Cardiology evaluation (2) Macrocytic anemia Current Visit: Yes Status: Acute Plan to address problem: Stable. We will recheck the CBC in the morning (3) Macular rash Current Visit: Yes Status: Acute Plan to address problem: We will monitor the patient closely. We will put the patient on Benadryl ointment. If needed consult dermatology (4) Tactile hallucination Current Visit: Yes Status: Acute Plan to address problem: We will monitor the patient closely . We will consult psych for evaluation (5) DVT prophylaxis Current Visit: Yes Status: Acute Plan to address problem: Lovenox 1 mg/kg subcu every 12 hours for DVT prophylaxis. Pepcid 20 mg p.o. twice daily for GI prophylaxis. Patient is a full code
[2022-01-02 04:21] LABS: Color,Urine Yellow (Yellow)
[2022-01-02] MEDS: SODIUM CHLORIDE 0.9% 1000 ML 1,000 ML IV SCH (05:00)
--- NOTE | 2022-01-02 08:09 | Nuclear Medicine Report ---
NUCLEAR MEDICINE PERFUSION SCAN INDICATION: Tachycardia and elevated D-dimer, chest CORRELATION: AP chest performed yesterday RADIOPHARMACEUTICAL: Perfusion: 5.3 mCi Tc-99m MAA given IV FINDINGS: Perfusion images show symmetric and uniform radiotracer distribution throughout bilateral lung zones with no evidence of unmatched segmental perfusion defects. Normal cardiac silhouette. IMPRESSION: No evidence for pulmonary embolus. Signer Name: Sukhi Dahl Jr, MD Signed: 01/02/2022 8:05 AM Workstation Name: [id number]
[2022-01-02 08:23] LABS: Hematocrit 20.2 % (35.5-45.6); Hemoglobin 7.1 gm/dl (11.8-15.2); Mean Corpuscular HGB Conc 35 % (32-34); Mean Corpuscular Volume 106 fl (84-94); Platelet Count 217 K/mm3 (140-440); Red Blood Count 1.91 M/mm3 (3.65-5.03); Red Cell Distribution Width 18.6 % (13.2-15.2)
[2022-01-02 08:43] LABS: BUN/Creatinine Ratio 13; Blood Urea Nitrogen 17 mg/dL (9-20); Calcium 8.3 mg/dL (8.4-10.2); Hemolysis Index 18
[2022-01-02 08:49] LABS: Chol/HDL Ratio 2.41 %
[2022-01-02] MEDS ORDERED: METOPROLOL TARTRATE 25 MG TAB PO SCH (10:00)
--- NOTE | 2022-01-02 11:12 | Consultation ---
History of Present Illness Consult date: 01/02/22 History of present illness: 57-year-old male with history of atrial fibrillation/flutter status post ablation in 2020 at [facility] COPD came into the emergency room because he was having rapid heart rate for the past 4 to 5 days. He walked around yesterday and felt dizzy and lightheaded that what made him to come to the emergency room. He also may have some chest pain, but unclear. He denies any shortness of breath orthopnea PND or syncope. In the emergency room patient had found to be tachycardic. He was started on beta-roland which helped his rate to be controlled. Past History Past Medical History: GERD, other (Sickle cell disease ulcers and atrial fibrillation/flutter (unclear)) Past Surgical History: Other (Ablation likely for atrial flutter) Social history: no significant social history Family history: hypertension Medications and Allergies Allergies Allergy/AdvReac Type Severity Reaction Status Date / Time ibuprofen AdvReac Nausea Verified 10/06/20 17:36 Home Medications Medication Instructions Recorded Confirmed Last Taken Type Acetaminophen/Codeine [Tylenol 1 tab PO Q6H PRN #10 tab 10/07/20 Unknown Rx /Codeine # 3 tab] Active Meds: Active Medications Acetaminophen (Acetaminophen 325 Mg Tab) 650 mg PO Q6H PRN PRN Reason: Pain, Mild (1-3) Aspirin (Aspirin Ec 325 Mg Tab) 325 mg PO QDAY JYOTI Atorvastatin Calcium (Atorvastatin 40 Mg Tab) 40 mg PO QHS JYOTI Enoxaparin Sodium (Enoxaparin 60 Mg/0.6 Ml Inj) 60 mg SUB-Q Q12H JYOTI; Protocol Sodium Chloride (Nacl 0.9% 1000 Ml) 1,000 mls @ 100 mls/hr IV DIRECT JYOTI Last Admin: 01/02/22 05:00 Dose: 100 mls/hr Lorazepam (Lorazepam 2 Mg/Ml Vial) 2 mg IV Q1HR PRN PRN Reason: CIWA-Ar 8-15 Lorazepam (Lorazepam 2 Mg/Ml Vial) 4 mg IV Q1HR PRN PRN Reason: CIWA-Ar 16-25 Lorazepam (Lorazepam 2 Mg/Ml Vial) 4 mg IV Q15MIN PRN PRN Reason: CIWA-Ar >25 Metoprolol Tartrate (Metoprolol Tartrate 25 Mg Tab) 50 mg PO BID JYOTI Morphine Sulfate (Morphine 4 Mg/1 Ml Inj) 2 mg IV Q5MIN PRN PRN Reason: Chest Pain unrelieved by NTG Nitroglycerin (Nitroglycerin 0.4 Mg Tab Subl) 0.4 mg SL Q5M PRN PRN Reason: Chest Pain Ondansetron HCl (Ondansetron 4 Mg/2 Ml Inj) 4 mg IV Q8H PRN PRN Reason: Nausea And Vomiting Sodium Chloride (Sodium Chloride 0.9% 10 Ml Flush Syringe) 10 ml IV BID JYOTI Sodium Chloride (Sodium Chloride 0.9% 10 Ml Flush Syringe) 10 ml IV PRN PRN PRN Reason: LINE FLUSH Tramadol HCl (Tramadol 50 Mg Tab) 50 mg PO Q6H PRN PRN Reason: Pain, Moderate (4-6) Review of Systems Constitutional: no fever, no chills Ears, nose, mouth and throat: no ear pain Cardiovascular: palpitations, no chest pain, no orthopnea, no paroxysmal nocturnal dyspnea Respiratory: no cough Gastrointestinal: no nausea, no vomiting, no diarrhea Musculoskeletal: no neck pain Integumentary: no rash Neurological: no head injury Endocrine: palpatations Allergic/Immunologic: no wheezing Physical Examination Vital Signs Temp Pulse Resp BP Pulse Ox 99.3 F 120 H 18 118/86 99 01/01/22 17:51 01/01/22 17:51 01/01/22 17:51 01/01/22 17:51 01/01/22 17:51 General appearance: no acute distress HEENT: Positive: PERRL Neck: Positive: neck supple. Negative: JVD/HJR Cardiac: Positive: Regular Rate, S1/S2 Lungs: Positive: clear to auscultation, No Wheeze, Rales, Rhonchi Neuro: Positive: Grossly Intact Abdomen: Positive: Soft Skin: Positive: Rash Extremities: Absent: edema Results 01/02/22 Unknown 01/02/22 Unknown Cardiac Enzymes 01/01/22 Range/Units 18:38 AST 73 H (5-40) units/L Coagulation 01/01/22 Range/Units 18:38 PT 15.5 H (12.2-14.9) Sec. INR 1.08 (0.87-1.13) Lipids 01/02/22 Range/Units Unknown Triglycerides 64 (2-149) mg/dL Cholesterol 104 (50-199) mg/dL HDL Cholesterol 43 (40-59) mg/dL Cholesterol/HDL Ratio 2.41 % CBC 01/01/22 01/02/22 Range/Units 18:38 Unknown WBC 9.9 9.5 (4.5-11.0) K/mm3 RBC 2.45 L 1.91 L (3.65-5.03) M/mm3 Hgb 9.1 L 7.1 L (11.8-15.2) gm/dl Hct 25.8 L 20.2 L (35.5-45.6) % Plt Count 244 217 (140-440) K/mm3 Lymph # (Auto) 1.0 L (1.2-5.4) K/mm3 [place] # (Auto) 1.3 H (0.0-0.8) K/mm3 Eos # (Auto) 0.1 (0.0-0.4) K/mm3 Baso # (Auto) 0.1 (0.0-0.1) K/mm3 Comprehensive Metabolic Panel 01/01/22 01/02/22 Range/Units 18:38 Unknown Sodium 138 138 (137-145) mmol/L Potassium 5.3 H 4.2 D (3.6-5.0) mmol/L Chloride 108.0 H 107.9 H (98-107) mmol/L Carbon Dioxide 18 L 20 L (22-30) mmol/L BUN 20 17 (9-20) mg/dL Creatinine 1.3 1.3 (0.8-1.3) mg/dL Glucose 97 88 (75-100) mg/dL Calcium 8.5 8.3 L (8.4-10.2) mg/dL AST 73 H (5-40) units/L ALT 29 (7-56) units/L Alkaline Phosphatase 163 H (35-129) units/L Total Protein 8.4 H (6.3-8.2) g/dL Albumin 4.0 (3.9-5) g/dL EKG interpretations - Telemetry EKG Rhythm: Atrial Flutter (Likely) Assessment and Plan - Patient Problems (1) Atrial flutter with rapid ventricular response Current Visit: Yes Status: Acute Plan to address problem: EKG appears to be in atrial flutter atrial flutter possibly atypical. Patient states he has been compliant with apixaban on and off he has been taking the medications regularly for the past 1 week but he had missed his doses frequently in the past. He is currently on metoprolol 25 twice daily will uptitrate to 50 twice daily. Continue anticoagulation. Please obtain records from [facility] about his procedure.
[2022-01-02 12:01] LABS: Eosinophils % (Manual) 1 % (0.0-4.3); Monocytes % (Manual) 15 % (0.0-7.3)
[2022-01-02 12:02] LABS: Platelet Estimate Consistent w Auto; Poikilocytosis 3+; Schistocytes 2+; Target Cells 1+
--- NOTE | 2022-01-02 12:29 | Consultation ---
History of Present Illness - Reason for Consult Consult date: 01/02/22 Reason for consult: hallucinations - History of Present Psychiatric Illness The patient was seen today. He presented to the ER for chest pain. During my evaluation of the patient, he is calm and cooperative. He says he has a history of manic depression. The patient asked why was psych consulted for him. After talking to the patient about his hallucinations he reported, he says "Oh, I'm not having that anymore." He says he's supposed to take meds, but states "I have hardly every taken any psych meds." The patient denies SI/HI or hallucinations. He says "the only problem I have is I don't sleep well." He says "it's been like that since I was young from partying so much." The patient then says "but I don't want any medicine. I'm telling you I'm not taking all that once I leave here." When asking the patient about drinking, he says sometimes. He endorses THC, but denies any other illicit substance. PAST PSYCHIATRIC HISTORY: Diagnoses: manic depression Suicide attempts or Self-harm behavior: Denies Prior psychiatric hospitalizations: Denies Substance Abuse history: denies Previous psychiatric medications tried: could not recall Outpatient treatment: Denies PAST MEDICAL HISTORY: None reported Family Psychiatric History: None reported or documented SOCIAL HISTORY Marital Status: Single Living Arrangements: roommate Employment Status: disabled Access to guns/weapons: Denies Education: High school History of Abuse:Denies Legal History: Denies REVIEW OF SYSTEMS Constitutional: Negative for weight loss ENT: Negative for stridor Respiratory: Negative for cough or hemoptysis All other systems reviewed and are negative MENTAL STATUS EXAMINATION General Appearance and Behavior: Age appropriate, wearing appropriate clothes, cooperative, polite with questioning, fair eye contact Cooperation: cooperative Psychomotor Behavior: Psychomotor normal Mood: fine Affect and affective range: congruent with stated affect Thought Process: goal directed Thought Content: None Speech: Normal volume, Regular rate and rhythm Suicidal Ideation: Denies Homicidal Ideation: Denies Hallucination: Denies Delusions: None elicited Impulse Control: Limited Insight and Judgment: Limited Memory: Intact Attention: attentive Orientation: Alert and oriented Diagnoses: Hx of Bipolar Disorder Treatment Plan No meds at this time Medical: per primary Disposition: Do not recommend acute psychiatric inpatient treatment The patient to follow up with outpatient psych in 7 to 14 days upon discharge The manager urgent care to give all necessary outpatient resources Will sign off. Thanks Case staffed with Dr. Grant Medications and Allergies Allergies Allergy/AdvReac Type Severity Reaction Status Date / Time ibuprofen AdvReac Nausea Verified 10/06/20 17:36 Home Medications Medication Instructions Recorded Confirmed Last Taken Type Acetaminophen/Codeine [Tylenol 1 tab PO Q6H PRN #10 tab 10/07/20 Unknown Rx /Codeine # 3 tab] Active Meds: Active Medications Acetaminophen (Acetaminophen 325 Mg Tab) 650 mg PO Q6H PRN PRN Reason: Pain, Mild (1-3) Aspirin (Aspirin Ec 325 Mg Tab) 325 mg PO QDAY JYOTI Atorvastatin Calcium (Atorvastatin 40 Mg Tab) 40 mg PO QHS JYOTI Enoxaparin Sodium (Enoxaparin 60 Mg/0.6 Ml Inj) 60 mg SUB-Q Q12H JYOTI; Protocol Sodium Chloride (Nacl 0.9% 1000 Ml) 1,000 mls @ 100 mls/hr IV DIRECT JYOTI Last Admin: 01/02/22 05:00 Dose: 100 mls/hr Lorazepam (Lorazepam 2 Mg/Ml Vial) 2 mg IV Q1HR PRN PRN Reason: CIWA-Ar 8-15 Lorazepam (Lorazepam 2 Mg/Ml Vial) 4 mg IV Q1HR PRN PRN Reason: CIWA-Ar 16-25 Lorazepam (Lorazepam 2 Mg/Ml Vial) 4 mg IV Q15MIN PRN PRN Reason: CIWA-Ar >25 Metoprolol Tartrate (Metoprolol Tartrate 25 Mg Tab) 50 mg PO BID JYOTI Morphine Sulfate (Morphine 4 Mg/1 Ml Inj) 2 mg IV Q5MIN PRN PRN Reason: Chest Pain unrelieved by NTG Nitroglycerin (Nitroglycerin 0.4 Mg Tab Subl) 0.4 mg SL Q5M PRN PRN Reason: Chest Pain Ondansetron HCl (Ondansetron 4 Mg/2 Ml Inj) 4 mg IV Q8H PRN PRN Reason: Nausea And Vomiting Sodium Chloride (Sodium Chloride 0.9% 10 Ml Flush Syringe) 10 ml IV BID JYOTI Sodium Chloride (Sodium Chloride 0.9% 10 Ml Flush Syringe) 10 ml IV PRN PRN PRN Reason: LINE FLUSH Tramadol HCl (Tramadol 50 Mg Tab) 50 mg PO Q6H PRN PRN Reason: Pain, Moderate (4-6) Mental Status Exam - Vital signs Last Vital Signs Temp 98.4 F 01/02/22 05:15 Pulse 116 H 01/02/22 05:15 Resp 20 01/02/22 05:15 BP 137/75 01/02/22 05:15 Pulse Ox 96 01/02/22 05:15 Results Result Diagrams: 01/02/22 Unknown 01/02/22 Unknown Abnormal lab results 01/01/22 01/01/22 01/01/22 Range/Units 18:38 18:38 18:38 RBC 2.45 L (3.65-5.03) M/mm3 Hgb 9.1 L (11.8-15.2) gm/dl Hct 25.8 L (35.5-45.6) % MCV 105 H (84-94) fl MCH 37 H (28-32) pg MCHC 35 H (32-34) % RDW 18.8 H (13.2-15.2) % Lymph % (Auto) 10.1 L (13.4-35.0) % [place] % (Auto) 13.1 H (0.0-7.3) % Lymph # (Auto) 1.0 L (1.2-5.4) K/mm3 [place] # (Auto) 1.3 H (0.0-0.8) K/mm3 Seg Neutrophils % 74.9 H (40.0-70.0) % Monocytes % (Manual) (0.0-7.3) % Monocytes # (Manual) (0.0-0.8) K/mm3 PT 15.5 H (12.2-14.9) Sec. D-Dimer (0-234) ng/mlDDU Potassium 5.3 H (3.6-5.0) mmol/L Chloride 108.0 H (98-107) mmol/L Carbon Dioxide 18 L (22-30) mmol/L Calcium (8.4-10.2) mg/dL Iron (49-181) ug/dL Ferritin (30.0-300.0) ng/mL Total Bilirubin 4.30 H (0.1-1.2) mg/dL AST 73 H (5-40) units/L Alkaline Phosphatase 163 H (35-129) units/L Total Protein 8.4 H (6.3-8.2) g/dL Salicylates (2.8-20.0) mg/dL Acetaminophen (10.0-30.0) ug/mL 01/01/22 01/01/22 01/01/22 Range/Units 20:40 21:07 21:07 RBC (3.65-5.03) M/mm3 Hgb (11.8-15.2) gm/dl Hct (35.5-45.6) % MCV (84-94) fl MCH (28-32) pg MCHC (32-34) % RDW (13.2-15.2) % Lymph % (Auto) (13.4-35.0) % [place] % (Auto) (0.0-7.3) % Lymph # (Auto) (1.2-5.4) K/mm3 [place] # (Auto) (0.0-0.8) K/mm3 Seg Neutrophils % (40.0-70.0) % Monocytes % (Manual) (0.0-7.3) % Monocytes # (Manual) (0.0-0.8) K/mm3 PT (12.2-14.9) Sec. D-Dimer (0-234) ng/mlDDU Potassium (3.6-5.0) mmol/L Chloride (98-107) mmol/L Carbon Dioxide (22-30) mmol/L Calcium (8.4-10.2) mg/dL Iron (49-181) ug/dL Ferritin 507.5 H (30.0-300.0) ng/mL Total Bilirubin (0.1-1.2) mg/dL AST (5-40) units/L Alkaline Phosphatase (35-129) units/L Total Protein (6.3-8.2) g/dL Salicylates < 0.3 L (2.8-20.0) mg/dL Acetaminophen 5.0 L (10.0-30.0) ug/mL 01/01/22 01/01/22 01/02/22 Range/Units 21:07 21:07 Unknown RBC 1.91 L (3.65-5.03) M/mm3 Hgb 7.1 L (11.8-15.2) gm/dl Hct 20.2 L (35.5-45.6) % MCV 106 H (84-94) fl MCH 38 H (28-32) pg MCHC 35 H (32-34) % RDW 18.6 H (13.2-15.2) % Lymph % (Auto) (13.4-35.0) % [place] % (Auto) (0.0-7.3) % Lymph # (Auto) (1.2-5.4) K/mm3 [place] # (Auto) (0.0-0.8) K/mm3 Seg Neutrophils % (40.0-70.0) % Monocytes % (Manual) 15 H (0.0-7.3) % Monocytes # (Manual) 1.4 H (0.0-0.8) K/mm3 PT (12.2-14.9) Sec. D-Dimer 1430.44 H (0-234) ng/mlDDU Potassium (3.6-5.0) mmol/L Chloride (98-107) mmol/L Carbon Dioxide (22-30) mmol/L Calcium (8.4-10.2) mg/dL Iron 185 H (49-181) ug/dL Ferritin (30.0-300.0) ng/mL Total Bilirubin (0.1-1.2) mg/dL AST (5-40) units/L Alkaline Phosphatase (35-129) units/L Total Protein (6.3-8.2) g/dL Salicylates (2.8-20.0) mg/dL Acetaminophen (10.0-30.0) ug/mL 01/02/22 Range/Units Unknown RBC (3.65-5.03) M/mm3 Hgb (11.8-15.2) gm/dl Hct (35.5-45.6) % MCV (84-94) fl MCH (28-32) pg MCHC (32-34) % RDW (13.2-15.2) % Lymph % (Auto) (13.4-35.0) % [place] % (Auto) (0.0-7.3) % Lymph # (Auto) (1.2-5.4) K/mm3 [place] # (Auto) (0.0-0.8) K/mm3 Seg Neutrophils % (40.0-70.0) % Monocytes % (Manual) (0.0-7.3) % Monocytes # (Manual) (0.0-0.8) K/mm3 PT (12.2-14.9) Sec. D-Dimer (0-234) ng/mlDDU Potassium (3.6-5.0) mmol/L Chloride 107.9 H (98-107) mmol/L Carbon Dioxide 20 L (22-30) mmol/L Calcium 8.3 L (8.4-10.2) mg/dL Iron (49-181) ug/dL Ferritin (30.0-300.0) ng/mL Total Bilirubin (0.1-1.2) mg/dL AST (5-40) units/L Alkaline Phosphatase (35-129) units/L Total Protein (6.3-8.2) g/dL Salicylates (2.8-20.0) mg/dL Acetaminophen (10.0-30.0) ug/mL All other labs normal.
--- NOTE | 2022-01-02 12:38 | Hem/Onc Consultation ---
History of Present Illness - Reason for Consult Consult date: 01/02/22 Anemia - History of Present Illness Heme Consult Note Seen via amplify CPT 11841 Dx Anemia This is a 61yo male who presented to [facility] ED with complaints of chest pressure and rapid heartbeat. Past past medical history of sickle cell, a flutter, status post ablation in 2020, not currently on systemic anticoagulation. Upon admission to the ED, endorses sensation of bug crawling and tactile hallucinations on the face for about 6 months. Denies suicidal ideation. A nonspecific nonblanching macular rash on his bilateral palms, chest, and abdomen was noted. Reports no sexual activity and denies IV drug use. In the emergency room EKG showed narrow complex tachycardia, with a rate of 117 bpm, with a left axis deviation, and a left anterior fascicular block. There is poor R wave progression. Suspect a flutter, with 2: [address] scan brain negative for acute findings. Lovenox ordered. Currently, heart rate in the 90s, with variable flutter conduction. Followed by cardiology. Hematology was consulted for evaluation of anemia. Patient examined at bedside, in no acute distress noted. Reports feeling tired and short of breath. Reports sickle cell disease requiring annual blood transfusions, last being November 2020. Last EGD/colonoscopy was reported being done 1 year ago, and negative. DATA REVIEWED BELOW IMP: Anemia, liver dysfunction, sickle cell Possible vitamin b12 deficiency GI etiology of anemia is possible PLAN: labs to include LDH, retic, b12/folate, SPEP w. PRISCILLA, HgEP to confirm sickle cell disease Transfuse 1 unit pRBC whenever HCT < 21, starting 01/03/22 Liver u/s Consider GI evaluation Laboratory Last Values WBC 9.5 K/mm3 (4.5-11.0) 01/02/22 Unknown Hgb 7.1 gm/dl (11.8-15.2) L 01/02/22 Unknown Hct 20.2 % (35.5-45.6) L 01/02/22 Unknown MCV 106 fl (84-94) H 01/02/22 Unknown Plt Count 217 K/mm3 (140-440) 01/02/22 Unknown Lymph # (Auto) 1.0 K/mm3 (1.2-5.4) L 01/01/22 18:38 Seg Neutrophils % 74.9 % (40.0-70.0) H 01/01/22 18:38 Monocytes % (Manual) 15 % (0.0-7.3) H 01/02/22 Unknown Monocytes # (Manual) 1.4 K/mm3 (0.0-0.8) H 01/02/22 Unknown PT 15.5 Sec. (12.2-14.9) H 01/01/22 18:38 INR 1.08 (0.87-1.13) 01/01/22 18:38 D-Dimer 1430.44 ng/mlDDU (0-234) H 01/01/22 21:07 Creatinine 1.3 mg/dL (0.8-1.3) 01/02/22 Unknown Iron 185 ug/dL (49-181) H 01/01/22 21:07 TIBC 300 mcg/dL (250-450) 01/01/22 21:07 Ferritin 507.5 ng/mL (30.0-300.0) H 01/01/22 20:40 Total Bilirubin 4.30 mg/dL (0.1-1.2) H 01/01/22 18:38 AST 73 units/L (5-40) H 01/01/22 18:38 ALT 29 units/L (7-56) 01/01/22 18:38 Alkaline Phosphatase 163 units/L (35-129) H 01/01/22 18:38 Plasma/Serum Alcohol 0.01 % (0-0.07) 01/01/22 21:07 Syphilis IgG/IgM Ab Nonreactive (NonReactive) 01/01/22 20:48 Past History Past Medical History: GERD, other (Sickle cell disease ulcers and atrial fibrillation/flutter (unclear)) Past Surgical History: Other (Ablation likely for atrial flutter) Social history: no significant social history Family history: hypertension Medications and Allergies Allergies Allergy/AdvReac Type Severity Reaction Status Date / Time ibuprofen AdvReac Nausea Verified 10/06/20 17:36 Home Medications Medication Instructions Recorded Confirmed Last Taken Type Acetaminophen/Codeine [Tylenol 1 tab PO Q6H PRN #10 tab 10/07/20 Unknown Rx /Codeine # 3 tab] Active Meds: Active Medications Acetaminophen (Acetaminophen 325 Mg Tab) 650 mg PO Q6H PRN PRN Reason: Pain, Mild (1-3) Aspirin (Aspirin Ec 325 Mg Tab) 325 mg PO QDAY JYOTI Atorvastatin Calcium (Atorvastatin 40 Mg Tab) 40 mg PO QHS JYOTI Enoxaparin Sodium (Enoxaparin 60 Mg/0.6 Ml Inj) 60 mg SUB-Q Q12H JYOTI; Protocol Sodium Chloride (Nacl 0.9% 1000 Ml) 1,000 mls @ 100 mls/hr IV DIRECT JYOTI Last Admin: 01/02/22 05:00 Dose: 100 mls/hr Lorazepam (Lorazepam 2 Mg/Ml Vial) 2 mg IV Q1HR PRN PRN Reason: CIWA-Ar 8-15 Lorazepam (Lorazepam 2 Mg/Ml Vial) 4 mg IV Q1HR PRN PRN Reason: CIWA-Ar 16-25 Lorazepam (Lorazepam 2 Mg/Ml Vial) 4 mg IV Q15MIN PRN PRN Reason: CIWA-Ar >25 Metoprolol Tartrate (Metoprolol Tartrate 25 Mg Tab) 50 mg PO BID JYOTI Morphine Sulfate (Morphine 4 Mg/1 Ml Inj) 2 mg IV Q5MIN PRN PRN Reason: Chest Pain unrelieved by NTG Nitroglycerin (Nitroglycerin 0.4 Mg Tab Subl) 0.4 mg SL Q5M PRN PRN Reason: Chest Pain Ondansetron HCl (Ondansetron 4 Mg/2 Ml Inj) 4 mg IV Q8H PRN PRN Reason: Nausea And Vomiting Sodium Chloride (Sodium Chloride 0.9% 10 Ml Flush Syringe) 10 ml IV BID JYOTI Sodium Chloride (Sodium Chloride 0.9% 10 Ml Flush Syringe) 10 ml IV PRN PRN PRN Reason: LINE FLUSH Tramadol HCl (Tramadol 50 Mg Tab) 50 mg PO Q6H PRN PRN Reason: Pain, Moderate (4-6) Exam - Constitutional Vitals: Last Vital Signs Temp 98.4 F 01/02/22 05:15 Pulse 116 H 01/02/22 05:15 Resp 20 01/02/22 05:15 BP 137/75 01/02/22 05:15 Pulse Ox 96 01/02/22 05:15 Results - Labs lab Results: Laboratory Results - last 24 hr 01/01/22 01/01/22 01/01/22 18:38 18:38 18:38 WBC 9.9 RBC 2.45 L Hgb 9.1 L Hct 25.8 L MCV 105 H MCH 37 H MCHC 35 H RDW 18.8 H Plt Count 244 Lymph % (Auto) 10.1 L [place] % (Auto) 13.1 H Eos % (Auto) 0.7 Baso % (Auto) 1.2 Lymph # (Auto) 1.0 L [place] # (Auto) 1.3 H Eos # (Auto) 0.1 Baso # (Auto) 0.1 Add Manual Diff Seg Neutrophils % 74.9 H Seg Neuts % (Manual) Band Neutrophils % Lymphocytes % (Manual) Monocytes % (Manual) Eosinophils % (Manual) Nucleated RBC % Seg Neutrophils # 7.4 Seg Neutrophils # Man Band Neutrophils # Lymphocytes # (Manual) Monocytes # (Manual) Eosinophils # (Manual) WBC Morphology Hypersegmented Neuts Hyposegmented Neuts Hypogranular Neuts Smudge Cells Toxic Granulation Toxic Vacuolation Dohle Bodies Pelger-Huet Anomaly Linda Rods Platelet Estimate Clumped Platelets Plt Clumps, EDTA Large Platelets Giant Platelets Platelet Satelliting Plt Morphology Comment RBC Morphology Dimorphic RBCs Polychromasia Hypochromasia Poikilocytosis Anisocytosis Microcytosis Macrocytosis Spherocytes Pappenheimer Bodies Sickle Cells Target Cells Tear Drop Cells Ovalocytes Helmet Cells [place] Bodies [place] Rings [place] Cells Bite Cells Crenated Cell Elliptocytes Acanthocytes (Spur) Rouleaux Hemoglobin C Crystals Schistocytes Malaria parasites Job Bodies Hem Pathologist Commnt PT 15.5 H INR 1.08 D-Dimer Sodium 138 Potassium 5.3 H Chloride 108.0 H Carbon Dioxide 18 L Anion Gap 17 BUN 20 Creatinine 1.3 Estimated GFR > 60 BUN/Creatinine Ratio 15 Glucose 97 Calcium 8.5 Magnesium 1.70 Iron TIBC Ferritin Total Bilirubin 4.30 H AST 73 H ALT 29 Alkaline Phosphatase 163 H Troponin T Total Protein 8.4 H Albumin 4.0 Albumin/Globulin Ratio 0.9 Triglycerides Cholesterol LDL Cholesterol Direct HDL Cholesterol Cholesterol/HDL Ratio TSH Free T4 Urine Color Urine Turbidity Specific [place] (Man) Ur Protein (Man) Ur Ketones (Man) Ur Nitrite (Man) Ur Reducing Substances Urine Ictotest Leukocyte Esterase (Man) Urine WBC (Auto) Urine RBC (Auto) Urine RBC (Manual) Salicylates Acetaminophen Plasma/Serum Alcohol Syphilis IgG/IgM Ab 01/01/22 01/01/22 01/01/22 18:38 18:38 20:40 WBC RBC Hgb Hct MCV MCH MCHC RDW Plt Count Lymph % (Auto) [place] % (Auto) Eos % (Auto) Baso % (Auto) Lymph # (Auto) [place] # (Auto) Eos # (Auto) Baso # (Auto) Add Manual Diff Seg Neutrophils % Seg Neuts % (Manual) Band Neutrophils % Lymphocytes % (Manual) Monocytes % (Manual) Eosinophils % (Manual) Nucleated RBC % Seg Neutrophils # Seg Neutrophils # Man Band Neutrophils # Lymphocytes # (Manual) Monocytes # (Manual) Eosinophils # (Manual) WBC Morphology Hypersegmented Neuts Hyposegmented Neuts Hypogranular Neuts Smudge Cells Toxic Granulation Toxic Vacuolation Dohle Bodies Pelger-Huet Anomaly Linda Rods Platelet Estimate Clumped Platelets Plt Clumps, EDTA Large Platelets Giant Platelets Platelet Satelliting Plt Morphology Comment RBC Morphology Dimorphic RBCs Polychromasia Hypochromasia Poikilocytosis Anisocytosis Microcytosis Macrocytosis Spherocytes Pappenheimer Bodies Sickle Cells Target Cells Tear Drop Cells Ovalocytes Helmet Cells [place] Bodies [place] Rings [place] Cells Bite Cells Crenated Cell Elliptocytes Acanthocytes (Spur) Rouleaux Hemoglobin C Crystals Schistocytes Malaria parasites Job Bodies Hem Pathologist Commnt PT INR D-Dimer Sodium Potassium Chloride Carbon Dioxide Anion Gap BUN Creatinine Estimated GFR BUN/Creatinine Ratio Glucose Calcium Magnesium Iron TIBC Ferritin Total Bilirubin AST ALT Alkaline Phosphatase Troponin T < 0.010 Total Protein Albumin Albumin/Globulin Ratio Triglycerides Cholesterol LDL Cholesterol Direct HDL Cholesterol Cholesterol/HDL Ratio TSH 2.470 Free T4 1.27 Urine Color Urine Turbidity Specific [place] (Man) Ur Protein (Man) Ur Ketones (Man) Ur Nitrite (Man) Ur Reducing Substances Urine Ictotest Leukocyte Esterase (Man) Urine WBC (Auto) Urine RBC (Auto) Urine RBC (Manual) Salicylates Acetaminophen Plasma/Serum Alcohol Syphilis IgG/IgM Ab 01/01/22 01/01/22 01/01/22 20:40 20:48 21:07 WBC RBC Hgb Hct MCV MCH MCHC RDW Plt Count Lymph % (Auto) [place] % (Auto) Eos % (Auto) Baso % (Auto) Lymph # (Auto) [place] # (Auto) Eos # (Auto) Baso # (Auto) Add Manual Diff Seg Neutrophils % Seg Neuts % (Manual) Band Neutrophils % Lymphocytes % (Manual) Monocytes % (Manual) Eosinophils % (Manual) Nucleated RBC % Seg Neutrophils # Seg Neutrophils # Man Band Neutrophils # Lymphocytes # (Manual) Monocytes # (Manual) Eosinophils # (Manual) WBC Morphology Hypersegmented Neuts Hyposegmented Neuts Hypogranular Neuts Smudge Cells Toxic Granulation Toxic Vacuolation Dohle Bodies Pelger-Huet Anomaly Linda Rods Platelet Estimate Clumped Platelets Plt Clumps, EDTA Large Platelets Giant Platelets Platelet Satelliting Plt Morphology Comment RBC Morphology Dimorphic RBCs Polychromasia Hypochromasia Poikilocytosis Anisocytosis Microcytosis Macrocytosis Spherocytes Pappenheimer Bodies Sickle Cells Target Cells Tear Drop Cells Ovalocytes Helmet Cells [place] Bodies [place] Rings [place] Cells Bite Cells Crenated Cell Elliptocytes Acanthocytes (Spur) Rouleaux Hemoglobin C Crystals Schistocytes Malaria parasites Job Bodies Hem Pathologist Commnt PT INR D-Dimer Sodium Potassium Chloride Carbon Dioxide Anion Gap BUN Creatinine Estimated GFR BUN/Creatinine Ratio Glucose Calcium Magnesium Iron TIBC Ferritin 507.5 H Total Bilirubin AST ALT Alkaline Phosphatase Troponin T Total Protein Albumin Albumin/Globulin Ratio Triglycerides Cholesterol LDL Cholesterol Direct HDL Cholesterol Cholesterol/HDL Ratio TSH Free T4 Urine Color Urine Turbidity Specific [place] (Man) Ur Protein (Man) Ur Ketones (Man) Ur Nitrite (Man) Ur Reducing Substances Urine Ictotest Leukocyte Esterase (Man) Urine WBC (Auto) Urine RBC (Auto) Urine RBC (Manual) Salicylates < 0.3 L Acetaminophen Plasma/Serum Alcohol Syphilis IgG/IgM Ab Nonreactive 01/01/22 01/01/22 01/01/22 21:07 21:07 21:07 WBC RBC Hgb Hct MCV MCH MCHC RDW Plt Count Lymph % (Auto) [place] % (Auto) Eos % (Auto) Baso % (Auto) Lymph # (Auto) [place] # (Auto) Eos # (Auto) Baso # (Auto) Add Manual Diff Seg Neutrophils % Seg Neuts % (Manual) Band Neutrophils % Lymphocytes % (Manual) Monocytes % (Manual) Eosinophils % (Manual) Nucleated RBC % Seg Neutrophils # Seg Neutrophils # Man Band Neutrophils # Lymphocytes # (Manual) Monocytes # (Manual) Eosinophils # (Manual) WBC Morphology Hypersegmented Neuts Hyposegmented Neuts Hypogranular Neuts Smudge Cells Toxic Granulation Toxic Vacuolation Dohle Bodies Pelger-Huet Anomaly Linda Rods Platelet Estimate Clumped Platelets Plt Clumps, EDTA Large Platelets Giant Platelets Platelet Satelliting Plt Morphology Comment RBC Morphology Dimorphic RBCs Polychromasia Hypochromasia Poikilocytosis Anisocytosis Microcytosis Macrocytosis Spherocytes Pappenheimer Bodies Sickle Cells Target Cells Tear Drop Cells Ovalocytes Helmet Cells [place] Bodies [place] Rings [place] Cells Bite Cells Crenated Cell Elliptocytes Acanthocytes (Spur) Rouleaux Hemoglobin C Crystals Schistocytes Malaria parasites Job Bodies Hem Pathologist Commnt PT INR D-Dimer 1430.44 H Sodium Potassium Chloride Carbon Dioxide Anion Gap BUN Creatinine Estimated GFR BUN/Creatinine Ratio Glucose Calcium Magnesium Iron TIBC Ferritin Total Bilirubin AST ALT Alkaline Phosphatase Troponin T Total Protein Albumin Albumin/Globulin Ratio Triglycerides Cholesterol LDL Cholesterol Direct HDL Cholesterol Cholesterol/HDL Ratio TSH Free T4 Urine Color Urine Turbidity Specific [place] (Man) Ur Protein (Man) Ur Ketones (Man) Ur Nitrite (Man) Ur Reducing Substances Urine Ictotest Leukocyte Esterase (Man) Urine WBC (Auto) Urine RBC (Auto) Urine RBC (Manual) Salicylates Acetaminophen 5.0 L Plasma/Serum Alcohol 0.01 Syphilis IgG/IgM Ab 01/01/22 01/02/22 01/02/22 21:07 03:50 09:21 WBC RBC Hgb Hct MCV MCH MCHC RDW Plt Count Lymph % (Auto) [place] % (Auto) Eos % (Auto) Baso % (Auto) Lymph # (Auto) [place] # (Auto) Eos # (Auto) Baso # (Auto) Add Manual Diff Seg Neutrophils % Seg Neuts % (Manual) Band Neutrophils % Lymphocytes % (Manual) Monocytes % (Manual) Eosinophils % (Manual) Nucleated RBC % Seg Neutrophils # Seg Neutrophils # Man Band Neutrophils # Lymphocytes # (Manual) Monocytes # (Manual) Eosinophils # (Manual) WBC Morphology Hypersegmented Neuts Hyposegmented Neuts Hypogranular Neuts Smudge Cells Toxic Granulation Toxic Vacuolation Dohle Bodies Pelger-Huet Anomaly Linda Rods Platelet Estimate Clumped Platelets Plt Clumps, EDTA Large Platelets Giant Platelets Platelet Satelliting Plt Morphology Comment RBC Morphology Dimorphic RBCs Polychromasia Hypochromasia Poikilocytosis Anisocytosis Microcytosis Macrocytosis Spherocytes Pappenheimer Bodies Sickle Cells Target Cells Tear Drop Cells Ovalocytes Helmet Cells [place] Bodies [place] Rings [place] Cells Bite Cells Crenated Cell Elliptocytes Acanthocytes (Spur) Rouleaux Hemoglobin C Crystals Schistocytes Malaria parasites Job Bodies Hem Pathologist Commnt PT INR D-Dimer Sodium Potassium Chloride Carbon Dioxide Anion Gap BUN Creatinine Estimated GFR BUN/Creatinine Ratio Glucose Calcium Magnesium Iron 185 H TIBC 300 Ferritin Total Bilirubin AST ALT Alkaline Phosphatase Troponin T < 0.010 Total Protein Albumin Albumin/Globulin Ratio Triglycerides Cholesterol LDL Cholesterol Direct HDL Cholesterol Cholesterol/HDL Ratio TSH Free T4 Urine Color Yellow Urine Turbidity Clear Specific [place] (Man) 1.020 Ur Protein (Man) 2+ Ur Ketones (Man) Negative Ur Nitrite (Man) Negative Ur Reducing Substances Not Reportable Urine Ictotest Not Reportable Leukocyte Esterase (Man) Negative Urine WBC (Auto) 1.0 Urine RBC (Auto) 2.0 Urine RBC (Manual) Trace Salicylates Acetaminophen Plasma/Serum Alcohol Syphilis IgG/IgM Ab 01/02/22 01/02/22 01/02/22 Unknown Unknown Unknown WBC 9.5 RBC 1.91 L Hgb 7.1 L Hct 20.2 L MCV 106 H MCH 38 H MCHC 35 H RDW 18.6 H Plt Count 217 Lymph % (Auto) [place] % (Auto) [employer] Developer Eos % (Auto) Baso % (Auto) Lymph # (Auto) [place] # (Auto) Eos # (Auto) Baso # (Auto) Add Manual Diff Complete Seg Neutrophils % Seg Neuts % (Manual) 60 Band Neutrophils % 1 Lymphocytes % (Manual) 23 Monocytes % (Manual) 15 H Eosinophils % (Manual) 1 Nucleated RBC % Not Reportable Seg Neutrophils # Seg Neutrophils # Man 5.7 Band Neutrophils # 0.0 Lymphocytes # (Manual) 2.1 Monocytes # (Manual) 1.4 H Eosinophils # (Manual) 0.0 WBC Morphology Not Reportable Hypersegmented Neuts Not Reportable Hyposegmented Neuts Not Reportable Hypogranular Neuts Not Reportable Smudge Cells Not Reportable Toxic Granulation Not Reportable Toxic Vacuolation Not Reportable Dohle Bodies Not Reportable Pelger-Huet Anomaly Not Reportable Linda Rods Not Reportable Platelet Estimate Consistent w auto Clumped Platelets Not Reportable Plt Clumps, EDTA Not Reportable Large Platelets Not Reportable Giant Platelets Not Reportable Platelet Satelliting Not Reportable Plt Morphology Comment Not Reportable RBC Morphology Not Reportable Dimorphic RBCs Not Reportable Polychromasia Not Reportable Hypochromasia Not Reportable Poikilocytosis 3+ Anisocytosis Not Reportable Microcytosis 1+ Macrocytosis Not Reportable Spherocytes Not Reportable Pappenheimer Bodies Not Reportable Sickle Cells Not Reportable Target Cells 1+ Tear Drop Cells Not Reportable Ovalocytes Not Reportable Helmet Cells Not Reportable [place] Bodies Not Reportable [place] Rings Not Reportable [place] Cells Not Reportable Bite Cells Not Reportable Crenated Cell Not Reportable Elliptocytes Not Reportable Acanthocytes (Spur) Not Reportable Rouleaux Not Reportable Hemoglobin C Crystals Not Reportable Schistocytes 2+ Malaria parasites Not Reportable Job Bodies Not Reportable Hem Pathologist Commnt No PT INR D-Dimer Sodium 138 Potassium 4.2 D Chloride 107.9 H Carbon Dioxide 20 L Anion Gap 14 BUN 17 Creatinine 1.3 Estimated GFR > 60 BUN/Creatinine Ratio 13 Glucose 88 Calcium 8.3 L Magnesium Iron TIBC Ferritin Total Bilirubin AST ALT Alkaline Phosphatase Troponin T Total Protein Albumin Albumin/Globulin Ratio Triglycerides 64 Cholesterol 104 LDL Cholesterol Direct 55 HDL Cholesterol 43 Cholesterol/HDL Ratio 2.41 TSH Free T4 Urine Color Urine Turbidity Specific [place] (Man) Ur Protein (Man) Ur Ketones (Man) Ur Nitrite (Man) Ur Reducing Substances Urine Ictotest Leukocyte Esterase (Man) Urine WBC (Auto) Urine RBC (Auto) Urine RBC (Manual) Salicylates Acetaminophen Plasma/Serum Alcohol Syphilis IgG/IgM Ab
[2022-01-02] MEDS: METOPROLOL TARTRATE 25 MG TAB PO SCH ×2 (12:59→22:32)
--- NOTE | 2022-01-02 13:06 | Electrocardiograph Report ---
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
--- NOTE | 2022-01-02 13:08 | Electrocardiograph Report ---
[facility] Test Date: 2022-01-02 Test Time: 11:23:16 Pat Name: NICA VIEIRA Department: Room: A485 1 Gender: M Can Maker: KARMA : 1960 Requested By: HEBER ALMANZA Order Number: [id number] Reading MD: Saranya Molina Measurements Intervals [place] Rate: 120 P: 82 TN: 189 QRS: -46 QRSD: 91 T: -86 QT: 322 QTc: 455 Interpretive Statements Atrial tachycardia Occasional PVCs Left axis deviation Low voltage QRS Nonspecific T abnormalities, lateral leads Compared to ECG 01/02/2022 07:41:41 No significant change Electronically Signed On 01-02-2022 13:08:00 EDT by Saranya Molina
--- NOTE | 2022-01-02 13:21 | Progress Note ---
Assessment and Plan Assessment and plan: 61-year-old gentleman with history of sickle cell, a flutter, status post ablation, not currently on systemic anticoagulation, presenting to the department today with a primary complaints of chest pressure, and rapid heartbeat. No headache, neck pain, abdominal pain, vomiting, diaphoresis. On review of systems, endorses sensation of bug crawling and tactile hallucinations on the face for about 6 months.He is not homicidal suicidal. He has a nonspecific nonblanching macular rash on his bilateral palms, chest, and abdomen. He reports no sexual activity and he reports no IV drug use. He still has his spleen, but reports a distant history of cholecystectomy. He does not recall the medications that he takes. In the emergency room EKG showed narrow complex tachycardia, with a rate of 117 bpm, with a left axis deviation, and a left anterior fascicular block. There is poor R wave progression. Suspect a flutter, with 2: [address] scan brain negative for acute findings. Lovenox ordered. Went back to patient's bedside with additional diltiazem. Administered 15 mg, and then 10 mg respectively, now with appropriate decrease in heart rate, and obvious appreciation of flutter waves, on quality assurance monitor chassis. Currently, heart rate in the 90s, with variable flutter conduction. Past History Past Medical History: GERD, other (Sickle cell disease ulcers and cardiac history) Past Surgical History: Other (Ablation) Social history: no significant social history Family history: hypertension 01/02: Patient still with mild on easy feeling but denies shortness of breath. Still in a flutter. We will proceed with a CTA to rule out pulmonary embolism considering noncompliance with his anticoagulation. And also elevated D-dimer. We will also check a Doppler of lower extremity. I did consult psychiatry adult physician as patient is anemic and this patient requires anticoagulation will need to have a close monitoring. We will check stool for occult blood to rule out any other pathology and try to obtain records to understand his baselines. Plan discussed with the patient counseling provided on compliance with medication for 15 minutes advance care planning discussed for 30 minutes patient verbalized understanding. (1) Atrial flutter with rapid ventricular response Current Visit: Yes Status: Acute Plan to address problem: Admit the patient to the medical telemetry. Aspirin 325 mg p.o. daily. Lipitor 40 mg p.o. daily. Lopressor 25 mg p.o. twice daily. Lovenox 1 mg/kg SQ every 12 hours. Echocardiogram. Cardiology evaluation (2) Macrocytic anemia Current Visit: Yes Status: Acute Plan to address problem: Stable. We will recheck the CBC in the morning (3) Macular rash Current Visit: Yes Status: Acute Plan to address problem: We will monitor the patient closely. We will put the patient on Benadryl ointment. If needed consult dermatology (4) Tactile hallucination Current Visit: Yes Status: Acute Plan to address problem: We will monitor the patient closely . We will consult psych for evaluation (5) DVT prophylaxis Current Visit: Yes Status: Acute Plan to address problem: Lovenox 1 mg/kg subcu every 12 hours for DVT prophylaxis. Pepcid 20 mg p.o. twice daily for GI prophylaxis. Patient is a full code History Interval history: Patient seen and examined this morning no acute distress resting comfortably. Hospitalist Physical - Physical exam Narrative exam: General appearance: Present: no acute distress, well-nourished - EENT Eyes: Present: PERRL ENT: hearing intact, clear oral mucosa - Neck Neck: Present: supple, normal ROM - Respiratory Respiratory effort: normal Respiratory: bilateral: CTA - Cardiovascular Heart Sounds: Present: S1 & S2. Absent: rub, click - Extremities Extremities: pulses symmetrical, No edema Peripheral Pulses: within normal limits - Abdominal General gastrointestinal: Present: soft, non-tender, non-distended, normal bowel sounds Male genitourinary: Present: normal - Integumentary Integumentary: Present: clear, warm, dry - Musculoskeletal Musculoskeletal: gait normal, strength equal bilaterally - Psychiatric Psychiatric: appropriate mood/affect, intact judgment & insight - Neurologic Neurologic: CNII-XII intact, moves all extremities - Constitutional Vitals: Temp Pulse Resp BP Pulse Ox 98.4 F 116 H 20 137/75 96 01/02/22 05:15 01/02/22 05:15 01/02/22 05:15 01/02/22 05:15 01/02/22 05:15 General appearance: Present: no acute distress HEART Score - HEART Score Troponin: Troponin T < 0.010 ng/mL (0.00-0.029) 01/02/22 09:21 Results - Labs CBC & Chem 7: 01/02/22 Unknown 01/02/22 Unknown Labs: Laboratory Last Values WBC 9.5 K/mm3 (4.5-11.0) 01/02/22 Unknown RBC 1.91 M/mm3 (3.65-5.03) L 01/02/22 Unknown Hgb 7.1 gm/dl (11.8-15.2) L 01/02/22 Unknown Hct 20.2 % (35.5-45.6) L 01/02/22 Unknown MCV 106 fl (84-94) H 01/02/22 Unknown MCH 38 pg (28-32) H 01/02/22 Unknown MCHC 35 % (32-34) H 01/02/22 Unknown RDW 18.6 % (13.2-15.2) H 01/02/22 Unknown Plt Count 217 K/mm3 (140-440) 01/02/22 Unknown Lymph % (Auto) 10.1 % (13.4-35.0) L 01/01/22 18:38 Ashley % (Auto) Special Programs Director 01/02/22 Unknown Eos % (Auto) 0.7 % (0.0-4.3) 01/01/22 18:38 Baso % (Auto) 1.2 % (0.0-1.8) 01/01/22 18:38 Lymph # (Auto) 1.0 K/mm3 (1.2-5.4) L 01/01/22 18:38 Ashley # (Auto) 1.3 K/mm3 (0.0-0.8) H 01/01/22 18:38 Eos # (Auto) 0.1 K/mm3 (0.0-0.4) 01/01/22 18:38 Baso # (Auto) 0.1 K/mm3 (0.0-0.1) 01/01/22 18:38 Add Manual Diff Complete 01/02/22 Unknown Seg Neutrophils % 74.9 % (40.0-70.0) H 01/01/22 18:38 Seg Neuts % (Manual) 60 % (40.0-70.0) 01/02/22 Unknown Band Neutrophils % 1 % 01/02/22 Unknown Lymphocytes % (Manual) 23 % (13.4-35.0) 01/02/22 Unknown Monocytes % (Manual) 15 % (0.0-7.3) H 01/02/22 Unknown Eosinophils % (Manual) 1 % (0.0-4.3) 01/02/22 Unknown Nucleated RBC % Not Reportable 01/02/22 Unknown Seg Neutrophils # 7.4 K/mm3 (1.8-7.7) 01/01/22 18:38 Seg Neutrophils # Man 5.7 K/mm3 (1.8-7.7) 01/02/22 Unknown Band Neutrophils # 0.0 K/mm3 01/02/22 Unknown Lymphocytes # (Manual) 2.1 K/mm3 (1.2-5.4) 01/02/22 Unknown Monocytes # (Manual) 1.4 K/mm3 (0.0-0.8) H 01/02/22 Unknown Eosinophils # (Manual) 0.0 K/mm3 (0.0-0.4) 01/02/22 Unknown WBC Morphology Not Reportable 01/02/22 Unknown Hypersegmented Neuts Not Reportable 01/02/22 Unknown Hyposegmented Neuts Not Reportable 01/02/22 Unknown Hypogranular Neuts Not Reportable 01/02/22 Unknown Smudge Cells Not Reportable 01/02/22 Unknown Toxic Granulation Not Reportable 01/02/22 Unknown Toxic Vacuolation Not Reportable 01/02/22 Unknown Dohle Bodies Not Reportable 01/02/22 Unknown Pelger-Huet Anomaly Not Reportable 01/02/22 Unknown Linda Rods Not Reportable 01/02/22 Unknown Platelet Estimate Consistent w auto 01/02/22 Unknown Clumped Platelets Not Reportable 01/02/22 Unknown Plt Clumps, EDTA Not Reportable 01/02/22 Unknown Large Platelets Not Reportable 01/02/22 Unknown Giant Platelets Not Reportable 01/02/22 Unknown Platelet Satelliting Not Reportable 01/02/22 Unknown Plt Morphology Comment Not Reportable 01/02/22 Unknown RBC Morphology Not Reportable 01/02/22 Unknown Dimorphic RBCs Not Reportable 01/02/22 Unknown Polychromasia Not Reportable 01/02/22 Unknown Hypochromasia Not Reportable 01/02/22 Unknown Poikilocytosis 3+ 01/02/22 Unknown Anisocytosis Not Reportable 01/02/22 Unknown Microcytosis 1+ 01/02/22 Unknown Macrocytosis Not Reportable 01/02/22 Unknown Spherocytes Not Reportable 01/02/22 Unknown Pappenheimer Bodies Not Reportable 01/02/22 Unknown Sickle Cells Not Reportable 01/02/22 Unknown Target Cells 1+ 01/02/22 Unknown Tear Drop Cells Not Reportable 01/02/22 Unknown Ovalocytes Not Reportable 01/02/22 Unknown Helmet Cells Not Reportable 01/02/22 Unknown [place]-A[place]anum Bodies Not Reportable 01/02/22 Unknown Perryman Rings Not Reportable 01/02/22 Unknown Monica Cells Not Reportable 01/02/22 Unknown Bite Cells Not Reportable 01/02/22 Unknown Crenated Cell Not Reportable 01/02/22 Unknown Elliptocytes Not Reportable 01/02/22 Unknown Acanthocytes (Spur) Not Reportable 01/02/22 Unknown Rouleaux Not Reportable 01/02/22 Unknown Hemoglobin C Crystals Not Reportable 01/02/22 Unknown Schistocytes 2+ 01/02/22 Unknown Malaria parasites Not Reportable 01/02/22 Unknown Job Bodies Not Reportable 01/02/22 Unknown Hem Pathologist Commnt No 01/02/22 Unknown PT 15.5 Sec. (12.2-14.9) H 01/01/22 18:38 INR 1.08 (0.87-1.13) 01/01/22 18:38 D-Dimer 1430.44 ng/mlDDU (0-234) H 01/01/22 21:07 Sodium 138 mmol/L (137-145) 01/02/22 Unknown Potassium 4.2 mmol/L (3.6-5.0) D 01/02/22 Unknown Chloride 107.9 mmol/L (98-107) H 01/02/22 Unknown Carbon Dioxide 20 mmol/L (22-30) L 01/02/22 Unknown Anion Gap 14 mmol/L 01/02/22 Unknown BUN 17 mg/dL (9-20) 01/02/22 Unknown Creatinine 1.3 mg/dL (0.8-1.3) 01/02/22 Unknown Estimated GFR > 60 ml/min 01/02/22 Unknown BUN/Creatinine Ratio 13 % 01/02/22 Unknown Glucose 88 mg/dL (75-100) 01/02/22 Unknown Calcium 8.3 mg/dL (8.4-10.2) L 01/02/22 Unknown Magnesium 1.70 mg/dL (1.7-2.3) 01/01/22 18:38 Iron 185 ug/dL (49-181) H 01/01/22 21:07 TIBC 300 mcg/dL (250-450) 01/01/22 21:07 Ferritin 507.5 ng/mL (30.0-300.0) H 01/01/22 20:40 Total Bilirubin 4.30 mg/dL (0.1-1.2) H 01/01/22 18:38 AST 73 units/L (5-40) H 01/01/22 18:38 ALT 29 units/L (7-56) 01/01/22 18:38 Alkaline Phosphatase 163 units/L (35-129) H 01/01/22 18:38 Troponin T < 0.010 ng/mL (0.00-0.029) 01/02/22 09: Total Protein 8.4 g/dL (6.3-8.2) H 01/01/22 18:38 Albumin 4.0 g/dL (3.9-5) 01/01/22 18:38 Albumin/Globulin Ratio 0.9 % 01/01/22 18:38 Triglycerides 64 mg/dL (2-149) 01/02/22 Unknown Cholesterol 104 mg/dL (50-199) 01/02/22 Unknown LDL Cholesterol Direct 55 mg/dL (50-130) 01/02/22 Unknown HDL Cholesterol 43 mg/dL (40-59) 01/02/22 Unknown Cholesterol/HDL Ratio 2.41 % 01/02/22 Unknown TSH 2.470 mlU/mL (0.270-4.200) 01/01/22 18:38 Free T4 1.27 ng/dL (0.76-1.46) 01/01/22 18:38 Urine Color Yellow (Yellow) 01/02/22 03:50 Urine Turbidity Clear (Clear) 01/02/22 03:50 Specific [place] (Man) 1.020 (1.003-1.030) 01/02/22 03:50 Ur Protein (Man) 2+ mg/dL (Negative) 01/02/22 03:50 Ur Ketones (Man) Negative (Negative) 01/02/22 03:50 Ur Nitrite (Man) Negative (Negative) 01/02/22 03:50 Ur Reducing Substances Not Reportable 01/02/22 03:50 Urine Ictotest Not Reportable 01/02/22 03:50 Leukocyte Esterase (Man) Negative (Negative) 01/02/22 03:50 Urine WBC (Auto) 1.0 /HPF (0.0-6.0) 01/02/22 03:50 Urine RBC (Auto) 2.0 /HPF (0.0-6.0) 01/02/22 03:50 Urine RBC (Manual) Trace (Negative) 01/02/22 03:50 Salicylates < 0.3 mg/dL (2.8-20.0) L 01/01/22 21:07 Acetaminophen 5.0 ug/mL (10.0-30.0) L 01/01/22 21:07 Plasma/Serum Alcohol 0.01 % (0-0.07) 01/01/22 21:07 Syphilis IgG/IgM Ab Nonreactive (NonReactive) 01/01/22 20:48 Degroot/IV: Voiding Method Toilet Active Medications - Current Medications Current Medications: Generic Name Dose Route Start Last Admin Trade Name Freq PRN Reason Stop Dose Admin Acetaminophen 650 mg 01/02/22 03:48 Acetaminophen 325 Mg Tab PO Q6H PRN Pain, Mild (1-3) Aspirin 325 mg 01/03/22 10:00 Aspirin Ec 325 Mg Tab PO QDAY [facility] Atorvastatin Calcium 40 mg 01/02/22 22:00 Atorvastatin 40 Mg Tab PO QHS [facility] Enoxaparin Sodium 60 mg 01/02/22 16:00 Enoxaparin 60 Mg/0.6 Ml Inj SUB-Q Q12H [facility] Protocol Sodium Chloride 1,000 mls @ 100 mls/hr 01/02/22 04:00 01/02/22 05:00 Nacl 0.9% 1000 Ml IV 100 mls/hr DIRECT JYOTI Administration Lorazepam 2 mg 01/01/22 20:43 Lorazepam 2 Mg/Ml Vial IV Q1HR PRN CIWA-Ar 8-15 Lorazepam 4 mg 01/01/22 20:43 Lorazepam 2 Mg/Ml Vial IV Q1HR PRN CIWA-Ar 16-25 Lorazepam 4 mg 01/01/22 20:43 Lorazepam 2 Mg/Ml Vial IV Q15MIN PRN CIWA-Ar >25 Metoprolol Tartrate 50 mg 01/02/22 12:00 01/02/22 12:59 Metoprolol Tartrate 25 Mg Tab PO 50 mg BID JYOTI Administration Morphine Sulfate 2 mg 01/02/22 03:48 Morphine 4 Mg/1 Ml Inj IV Q5MIN PRN Chest Pain unrelieved by NTG Nitroglycerin 0.4 mg 01/02/22 03:48 Nitroglycerin 0.4 Mg Tab Subl SL Q5M PRN Chest Pain Ondansetron HCl 4 mg 01/01/22 22:39 Ondansetron 4 Mg/2 Ml Inj IV Q8H PRN Nausea And Vomiting Sodium Chloride 10 ml 01/02/22 10:00 01/02/22 12:59 Sodium Chloride 0.9% 10 Ml Flush Syringe IV 10 ml BID JYOTI Administration Sodium Chloride 10 ml 01/02/22 03:48 Sodium Chloride 0.9% 10 Ml Flush Syringe IV PRN PRN LINE FLUSH Tramadol HCl 50 mg 01/02/22 03:48 Tramadol 50 Mg Tab PO Q6H PRN Pain, Moderate (4-6)
[2022-01-02] MEDS ORDERED: ENOXAPARIN 60 MG/0.6 ML INJ SUB-Q SCH (16:00)
--- NOTE | 2022-01-02 16:45 | Vascular Lab Report ---
DUPLEX DOPPLER LOWER EXTREMITY VEINS, BILATERAL INDICATION / CLINICAL INFORMATION: DVT. TECHNIQUE: Duplex doppler imaging was performed through the veins of both lower extremities using adalgisa ous compression and other maneuvers. COMPARISON: None available. FINDINGS: RIGHT COMMON FEMORAL VEIN: Negative. RIGHT FEMORAL VEIN: Negative. RIGHT POPLITEAL VEIN: Negative. RIGHT CALF VEINS: Negative. LEFT COMMON FEMORAL VEIN: Negative. LEFT FEMORAL VEIN: Negative. LEFT POPLITEAL VEIN: Negative. LEFT CALF VEINS: Negative. ADDITIONAL FINDINGS: None. IMPRESSION: 1. No sonographic evidence for DVT in either lower extremity. Scribed by: Andressa Sheth RDMS, CASI, ANANT Scribed: 01/02/2022 3:12 PM I have reviewed the images, agree with this report, and edited this report as needed. Signer Name: Camden Souza MD Signed: 01/02/2022 4:41 PM Workstation Name: [id number]
[2022-01-03] MEDS: SODIUM CHLORIDE 0.9% 1000 ML 1,000 ML IV SCH (00:19)
[2022-01-03] MEDS ORDERED: ASPIRIN EC 325 MG TAB PO SCH (10:00)
[2022-01-03] MEDS: METOPROLOL TARTRATE 25 MG TAB PO SCH ×2 (11:12→23:03)
--- NOTE | 2022-01-03 12:39 | Ultrasound Report ---
ULTRASOUND ABDOMEN, COMPLETE INDICATION / CLINICAL INFORMATION: Sickle cell disease, evaluate for hepatomegaly. COMPARISON: None available. FINDINGS: PANCREAS: No significant abnormality. ABDOMINAL AORTA: No significant abnormality. IVC: No significant abnormality. LIVER: The liver is normal in size measuring 15.6 cm with diffusely heterogeneous appearance. Normal hepatopedal blood flow within the main portal vein. GALLBLADDER: Surgically absent. BILE DUCTS: No significant abnormality. Common bile duct measures 4 mm. KIDNEYS: * Right: The right kidney measures 10.2 cm. Hypoechoic lesion in the midpole measuring 2.5 x 1.3 x 1 .4 cm. Without internal vascularity demonstrated * Left: The left kidney measures 11.4 cm. Moderate hydronephrosis. SPLEEN: The spleen measures 4.9 cm. No significant abnormality. FREE FLUID: None. ADDITIONAL FINDINGS: None. IMPRESSION: 1. The liver is normal in size with diffusely heterogeneous appearance suggestive of steatosis or oth er underlying hepatocellular disease. 2. Hypoechoic right renal lesion measuring 2.[address] of the abdomen and pelvis to further characterize. 3. Moderate left hydronephrosis. This can be further characterized on the aforementioned recommended CT. Scribed by: Andressa Sheth RDMS, RVT, RMSKS Scribed: 01/03/2022 10:42 AM I have reviewed the images, agree with this report, and edited this report as needed. Signer Name: Cholo Vu MD Signed: 01/03/2022 12:35 PM Workstation Name: [id number]
--- NOTE | 2022-01-03 13:27 | Gastroenterology Consultation ---
History of Present Illness - Reason for Consult Consult date: 01/03/22 Anemia Requesting physician: DEJUAN HEDRICK - History of Present Illness Pleasant 61-year-old gentleman history of sickle cell disease whom GI is consulted for anemia Patient reports having abdominal pain for years due to history of peptic ulcer disease. He reports he gets most of his care from [place] Patient reports epigastric abdominal pain, cramping in quality. Longstanding. Nonradiating. He denies any overt blood loss. He reports of course his blood counts are low he has sickle cell disease and just needs a blood transfusion feel better and go home Obtained/updated/reviewed patient's current medications Past History Past Medical History: GERD, other (Sickle cell disease ulcers and atrial fibrillation/flutter (unclear)) Past Surgical History: Other (Ablation likely for atrial flutter) Social history: no significant social history Family history: hypertension Medications and Allergies Allergies Allergy/AdvReac Type Severity Reaction Status Date / Time ibuprofen AdvReac Nausea Verified 10/06/20 17:36 Home Medications Medication Instructions Recorded Confirmed Last Taken Type Acetaminophen/Codeine [Tylenol 1 tab PO Q6H PRN #10 tab 10/07/20 Unknown Rx /Codeine # 3 tab] Active Meds: Active Medications Acetaminophen (Acetaminophen 325 Mg Tab) 650 mg PO Q6H PRN PRN Reason: Pain, Mild (1-3) Aspirin (Aspirin Ec 325 Mg Tab) 325 mg PO QDAY [facility] Last Admin: 01/03/22 11:12 Dose: 325 mg Atorvastatin Calcium (Atorvastatin 40 Mg Tab) 40 mg PO QHS [facility] Last Admin: 01/02/22 22:32 Dose: 40 mg Enoxaparin Sodium (Enoxaparin 60 Mg/0.6 Ml Inj) 60 mg SUB-Q Q12H [facility]; Protocol Last Admin: 01/03/22 04:23 Dose: 60 mg Sodium Chloride (Nacl 0.9% 1000 Ml) 1,000 mls @ 100 mls/hr IV DIRECT [facility] Last Admin: 01/03/22 00:19 Dose: 100 mls/hr Lorazepam (Lorazepam 2 Mg/Ml Vial) 2 mg IV Q1HR PRN PRN Reason: CIWA-Ar 8-15 Lorazepam (Lorazepam 2 Mg/Ml Vial) 4 mg IV Q1HR PRN PRN Reason: CIWA-Ar 16-25 Lorazepam (Lorazepam 2 Mg/Ml Vial) 4 mg IV Q15MIN PRN PRN Reason: CIWA-Ar >25 Metoprolol Tartrate (Metoprolol Tartrate 25 Mg Tab) 50 mg PO BID [facility] Last Admin: 01/03/22 11:12 Dose: 50 mg Morphine Sulfate (Morphine 4 Mg/1 Ml Inj) 2 mg IV Q5MIN PRN PRN Reason: Chest Pain unrelieved by NTG Nitroglycerin (Nitroglycerin 0.4 Mg Tab Subl) 0.4 mg SL Q5M PRN PRN Reason: Chest Pain Ondansetron HCl (Ondansetron 4 Mg/2 Ml Inj) 4 mg IV Q8H PRN PRN Reason: Nausea And Vomiting Sodium Chloride (Sodium Chloride 0.9% 10 Ml Flush Syringe) 10 ml IV BID [facility] Last Admin: 01/03/22 11:13 Dose: 10 ml Sodium Chloride (Sodium Chloride 0.9% 10 Ml Flush Syringe) 10 ml IV PRN PRN PRN Reason: LINE FLUSH Tramadol HCl (Tramadol 50 Mg Tab) 50 mg PO Q6H PRN PRN Reason: Pain, Moderate (4-6) Review of Systems - Review of Systems All systems: negative (10 Systems reviewed and negative except as mentioned above in the history of present illness) Exam - Constitutional Vital Signs: Temp Pulse Resp BP Pulse Ox 98.1 F 111 H 17 130/66 100 01/03/22 03:24 01/03/22 03:24 01/03/22 03:24 01/03/22 03:24 01/03/22 04:00 General appearance: no acute distress - EENT Eyes: EOM intact - Neck Neck: supple - Respiratory Respiratory effort: normal - Cardiovascular Rhythm: other (No murmur appreciated on auscultation) - Gastrointestinal General gastrointestinal: Present: soft, tender - Integumentary Integumentary: Present: dry - Neurologic Neurological: alert and oriented x3 - Psychiatric Psychiatric: appropriate mood/affect - Labs CBC & Chem 7: 01/02/22 Unknown 01/02/22 Unknown Lab Results: Laboratory Results - last 24 hr 01/03/22 05:00 Percent Retic 10.32 H Assessment and Plan Patient with no overt bleeding and macrocytic anemia normal iron stores therefore GI source for blood loss and anemia unlikely Patient does not wish inpatient endoscopic evaluation, he wishes to get his care as an outpatient for him. He Given lack of overt bleeding this is reasonable, transfuse as indicated and may be discharged with outpatient follow-up Regarding abdominal pain and history of peptic ulcer disease would be prudent to start patient on pantoprazole daily upon discharge GI will sign off please call us back we can be of any further assistance - Patient Problems (1) Epigastric abdominal pain Current Visit: Yes Status: Acute (2) History of peptic ulcer disease Current Visit: Yes Status: Acute (3) Macrocytic anemia Current Visit: Yes Status: Acute
[2022-01-03] MEDS ORDERED: AMIODARONE 150 MG in DEXTROSE 5% IN WATER 97 ML IV NR (14:07)
--- NOTE | 2022-01-03 14:17 | Progress Note ---
Assessment and Plan - Patient Problems (1) Atrial flutter with rapid ventricular response Current Visit: Yes Status: Acute Plan to address problem: Patient presents with atrial flutter with 2 1 AV conduction. History of atrial fibrillation ablation in the past at [facility]. We will start amiodarone to assist with rhythm control, but at this time, patient is not a candidate for resumption of all continuation of anticoagulation. I note that he has severe anemia that has necessitated consultations with both hematology and gastroenterology. I will therefore recommend that the high-dose Lovenox that he is getting at this time be discontinued, pending full evaluation of the patient's anemia. Subjective Date of service: 01/03/22 Principal diagnosis: Anemia, tachycardia, atrial flutter Interval history: 61-year-old man admitted with tachycardia, ECG shows persistent atrial flutter with 2 1 AV conduction. Ventricular rate today is 114. The patient reports history of previous atrial fibrillation ablation at [facility]. Details are unavailable at this time. Outpatient anticoagulation was reported with [facility]. On this presentation, he has been on Lovenox at 120 mg daily, but patient has also been evaluated by hematology and gastroenterology for severe anemia, hematocrit 20-25. Objective Vital Signs Temp Pulse Resp BP Pulse Ox 01/03/22 04:00 100 01/03/22 03:24 98.1 F 111 H 17 130/66 100 01/02/22 23:22 98.8 F 101 H 17 100/60 94 01/02/22 22:32 112 H 01/02/22 19:39 98.3 F 112 H 14 130/77 96 01/02/22 16:00 100 - Physical Examination General: No Apparent Distress HEENT: Positive: PERRL Neck: Positive: neck supple. Negative: JVD/HJR Cardiac: Positive: irregularly irregular Lungs: Positive: Decreased Breath Sounds Neuro: Positive: Grossly Intact Abdomen: Positive: Soft Skin: Positive: Rash Extremities: Absent: edema
--- NOTE | 2022-01-03 15:31 | Progress Note ---
Assessment and Plan Assessment and plan: 61-year-old gentleman with history of sickle cell, a flutter, status post ablation, not currently on systemic anticoagulation, presenting to the department today with a primary complaints of chest pressure, and rapid heartbeat. No headache, neck pain, abdominal pain, vomiting, diaphoresis. On review of systems, endorses sensation of bug crawling and tactile hallucinations on the face for about 6 months.He is not homicidal suicidal. He has a nonspecific nonblanching macular rash on his bilateral palms, chest, and abdomen. He reports no sexual activity and he reports no IV drug use. He still has his spleen, but reports a distant history of cholecystectomy. He does not recall the medications that he takes. In the emergency room EKG showed narrow complex tachycardia, with a rate of 117 bpm, with a left axis deviation, and a left anterior fascicular block. There is poor R wave progression. Suspect a flutter, with 2: [address] scan brain negative for acute findings. Lovenox ordered. Went back to patient's bedside with additional diltiazem. Administered 15 mg, and then 10 mg respectively, now with appropriate decrease in heart rate, and obvious appreciation of flutter waves, on ekg monitor tech. Currently, heart rate in the 90s, with variable flutter conduction. Past History Past Medical History: GERD, other (Sickle cell disease ulcers and cardiac history) Past Surgical History: Other (Ablation) Social history: no significant social history Family history: hypertension 01/02: Patient still with mild on easy feeling but denies shortness of breath. Still in a flutter. We will proceed with a CTA to rule out pulmonary embolism considering noncompliance with his anticoagulation. And also elevated D-dimer. We will also check a Doppler of lower extremity. I did consult burner technician as patient is anemic and this patient requires anticoagulation will need to have a close monitoring. We will check stool for occult blood to rule out any other pathology and try to obtain records to understand his baselines. Plan discussed with the patient counseling provided on compliance with medication for 15 minutes advance care planning discussed for 30 minutes patient verbalized understanding. 01/03: Discussed with grain operations manager today reviewed medication list and will stop anticoagulation in the setting of worsening anemia. Awaiting for lab work from today. Also discontinue aspirin at this time. Patient has past history of atrial fibrillation ablation done at [facility] amiodarone is being initiated at this time to assist with control. Also gone ahead to consult hematology considering hx of Sickle cell. US abdomen showed 2.5 cm lesion in the liver and recommended CT ABD AND PELVIS, also moderate left hydronephrosis. Renal function is stable GI eval noted. Patient not wanting Endoscopy at this time. (1) Atrial flutter with rapid ventricular response Current Visit: Yes Status: Acute Plan to address problem: Admit the patient to the medical telemetry. Lipitor 40 mg p.o. daily. Lopressor 25 mg p.o. twice daily. Echocardiogram. Cardiology evaluation (2) Macrocytic anemia, possible sickle cell related, Current Visit: Yes Status: Acute Plan to address problem: Stable. We will recheck the CBC in the morning (3) Macular rash Current Visit: Yes Status: Acute Plan to address problem: We will monitor the patient closely. We will put the patient on Benadryl ointment. If needed consult dermatology (4) Tactile hallucination Current Visit: Yes Status: Acute Plan to address problem: We will monitor the patient closely . We will consult psych for evaluation (5) Epigastric abdominal pain Current Visit: Yes Status: Acute (6) Liver Lesion (7) History of peptic ulcer disease Current Visit: Yes Status: Acute (8) Left Hydronephrosis (9) DVT prophylaxis Current Visit: Yes Status: Acute Plan to address problem: Hold of all anticoagulation in the setting of Severe Anemia. Pepcid 20 mg p.o. twice daily for GI prophylaxis. Patient is a full code History Interval history: Patient seen and examined this morning no acute distress resting comfortably. Still feels palpitations of the heart. Hospitalist Physical - Physical exam Narrative exam: General appearance: Present: no acute distress, well-nourished - EENT Eyes: Present: PERRL ENT: hearing intact, clear oral mucosa - Neck Neck: Present: supple, normal ROM - Respiratory Respiratory effort: normal Respiratory: bilateral: CTA - Cardiovascular Heart Sounds: Present: S1 & S2. Irregularly irregular absent: rub, click - Extremities Extremities: pulses symmetrical, No edema Peripheral Pulses: within normal limits - Abdominal General gastrointestinal: Present: soft, non-tender, non-distended, normal bowel sounds Male genitourinary: Present: normal - Integumentary Integumentary: Present: clear, warm, dry - Musculoskeletal Musculoskeletal: gait normal, strength equal bilaterally - Psychiatric Psychiatric: appropriate mood/affect, intact judgment & insight - Neurologic Neurologic: CNII-XII intact, moves all extremities - Constitutional Vitals: Temp Pulse Resp BP Pulse Ox 98.1 F 111 H 17 130/66 100 01/03/22 03:24 01/03/22 08:00 01/03/22 03:24 01/03/22 03:24 01/03/22 04:00 General appearance: Present: no acute distress HEART Score - HEART Score Troponin: Troponin T < 0.010 ng/mL (0.00-0.029) 01/02/22 09:21 Results - Labs CBC & Chem 7: 01/02/22 Unknown 01/02/22 Unknown Labs: Laboratory Last Values WBC 9.5 K/mm3 (4.5-11.0) 01/02/22 Unknown RBC 1.91 M/mm3 (3.65-5.03) L 01/02/22 Unknown Hgb 7.1 gm/dl (11.8-15.2) L 01/02/22 Unknown Hct 20.2 % (35.5-45.6) L 01/02/22 Unknown MCV 106 fl (84-94) H 01/02/22 Unknown MCH 38 pg (28-32) H 01/02/22 Unknown MCHC 35 % (32-34) H 01/02/22 Unknown RDW 18.6 % (13.2-15.2) H 01/02/22 Unknown Plt Count 217 K/mm3 (140-440) 01/02/22 Unknown Lymph % (Auto) 10.1 % (13.4-35.0) L 01/01/22 18:38 [place] % (Auto) Hose Stripper 01/02/22 Unknown Eos % (Auto) 0.7 % (0.0-4.3) 01/01/22 18:38 Baso % (Auto) 1.2 % (0.0-1.8) 01/01/22 18:38 Lymph # (Auto) 1.0 K/mm3 (1.2-5.4) L 01/01/22 18:38 [place] # (Auto) 1.3 K/mm3 (0.0-0.8) H 01/01/22 18:38 Eos # (Auto) 0.1 K/mm3 (0.0-0.4) 01/01/22 18:38 Baso # (Auto) 0.1 K/mm3 (0.0-0.1) 01/01/22 18:38 Add Manual Diff Complete 01/02/22 Unknown Seg Neutrophils % 74.9 % (40.0-70.0) H 01/01/22 18:38 Seg Neuts % (Manual) 60 % (40.0-70.0) 01/02/22 Unknown Band Neutrophils % 1 % 01/02/22 Unknown Lymphocytes % (Manual) 23 % (13.4-35.0) 01/02/22 Unknown Monocytes % (Manual) 15 % (0.0-7.3) H 01/02/22 Unknown Eosinophils % (Manual) 1 % (0.0-4.3) 01/02/22 Unknown Nucleated RBC % Not Reportable 01/02/22 Unknown Seg Neutrophils # 7.4 K/mm3 (1.8-7.7) 01/01/22 18:38 Seg Neutrophils # Man 5.7 K/mm3 (1.8-7.7) 01/02/22 Unknown Band Neutrophils # 0.0 K/mm3 01/02/22 Unknown Lymphocytes # (Manual) 2.1 K/mm3 (1.2-5.4) 01/02/22 Unknown Monocytes # (Manual) 1.4 K/mm3 (0.0-0.8) H 01/02/22 Unknown Eosinophils # (Manual) 0.0 K/mm3 (0.0-0.4) 01/02/22 Unknown WBC Morphology Not Reportable 01/02/22 Unknown Hypersegmented Neuts Not Reportable 01/02/22 Unknown Hyposegmented Neuts Not Reportable 01/02/22 Unknown Hypogranular Neuts Not Reportable 01/02/22 Unknown Smudge Cells Not Reportable 01/02/22 Unknown Toxic Granulation Not Reportable 01/02/22 Unknown Toxic Vacuolation Not Reportable 01/02/22 Unknown Dohle Bodies Not Reportable 01/02/22 Unknown Pelger-Huet Anomaly Not Reportable 01/02/22 Unknown Linda Rods Not Reportable 01/02/22 Unknown Platelet Estimate Consistent w auto 01/02/22 Unknown Clumped Platelets Not Reportable 01/02/22 Unknown Plt Clumps, EDTA Not Reportable 01/02/22 Unknown Large Platelets Not Reportable 01/02/22 Unknown Giant Platelets Not Reportable 01/02/22 Unknown Platelet Satelliting Not Reportable 01/02/22 Unknown Plt Morphology Comment Not Reportable 01/02/22 Unknown RBC Morphology Not Reportable 01/02/22 Unknown Dimorphic RBCs Not Reportable 01/02/22 Unknown Polychromasia Not Reportable 01/02/22 Unknown Hypochromasia Not Reportable 01/02/22 Unknown Poikilocytosis 3+ 01/02/22 Unknown Anisocytosis Not Reportable 01/02/22 Unknown Microcytosis 1+ 01/02/22 Unknown Macrocytosis Not Reportable 01/02/22 Unknown Spherocytes Not Reportable 01/02/22 Unknown Pappenheimer Bodies Not Reportable 01/02/22 Unknown Sickle Cells Not Reportable 01/02/22 Unknown Target Cells 1+ 01/02/22 Unknown Tear Drop Cells Not Reportable 01/02/22 Unknown Ovalocytes Not Reportable 01/02/22 Unknown Helmet Cells Not Reportable 01/02/22 Unknown [place] Bodies Not Reportable 01/02/22 Unknown [place] Rings Not Reportable 01/02/22 Unknown [place] Cells Not Reportable 01/02/22 Unknown Bite Cells Not Reportable 01/02/22 Unknown Crenated Cell Not Reportable 01/02/22 Unknown Elliptocytes Not Reportable 01/02/22 Unknown Acanthocytes (Spur) Not Reportable 01/02/22 Unknown Rouleaux Not Reportable 01/02/22 Unknown Hemoglobin C Crystals Not Reportable 01/02/22 Unknown Schistocytes 2+ 01/02/22 Unknown Malaria parasites Not Reportable 01/02/22 Unknown Percent Retic 10.32 % (0.78-2.58) H 01/03/22 05:00 Job Bodies Not Reportable 01/02/22 Unknown Hem Pathologist Commnt No 01/02/22 Unknown PT 15.5 Sec. (12.2-14.9) H 01/01/22 18:38 INR 1.08 (0.87-1.13) 01/01/22 18:38 D-Dimer 1430.44 ng/mlDDU (0-234) H 01/01/22 21:07 Sodium 138 mmol/L (137-145) 01/02/22 Unknown Potassium 4.2 mmol/L (3.6-5.0) D 01/02/22 Unknown Chloride 107.9 mmol/L (98-107) H 01/02/22 Unknown Carbon Dioxide 20 mmol/L (22-30) L 01/02/22 Unknown Anion Gap 14 mmol/L 01/02/22 Unknown BUN 17 mg/dL (9-20) 01/02/22 Unknown Creatinine 1.3 mg/dL (0.8-1.3) 01/02/22 Unknown Estimated GFR > 60 ml/min 01/02/22 Unknown BUN/Creatinine Ratio 13 % 01/02/22 Unknown Glucose 88 mg/dL (75-100) 01/02/22 Unknown Calcium 8.3 mg/dL (8.4-10.2) L 01/02/22 Unknown Magnesium 1.70 mg/dL (1.7-2.3) 01/01/22 18:38 Iron 185 ug/dL (49-181) H 01/01/22 21:07 TIBC 300 mcg/dL (250-450) 01/01/22 21:07 Ferritin 507.5 ng/mL (30.0-300.0) H 01/01/22 20:40 Total Bilirubin 4.30 mg/dL (0.1-1.2) H 01/01/22 18:38 AST 73 units/L (5-40) H 01/01/22 18:38 ALT 29 units/L (7-56) 01/01/22 18:38 Alkaline Phosphatase 163 units/L (35-129) H 01/01/22 18:38 Troponin T < 0.010 ng/mL (0.00-0.029) 01/02/22 09:21 Total Protein 8.4 g/dL (6.3-8.2) H 01/01/22 18:38 Albumin 4.0 g/dL (3.9-5) 01/01/22 18:38 Albumin/Globulin Ratio 0.9 % 01/01/22 18:38 Triglycerides 64 mg/dL (2-149) 01/02/22 Unknown Cholesterol 104 mg/dL (50-199) 01/02/22 Unknown LDL Cholesterol Direct 55 mg/dL (50-130) 01/02/22 Unknown HDL Cholesterol 43 mg/dL (40-59) 01/02/22 Unknown Cholesterol/HDL Ratio 2.41 % 01/02/22 Unknown TSH 2.470 mlU/mL (0.270-4.200) 01/01/22 18:38 Free T4 1.27 ng/dL (0.76-1.46) 01/01/22 18:38 Urine Color Yellow (Yellow) 01/02/22 03:50 Urine Turbidity Clear (Clear) 01/02/22 03:50 Specific [place] (Man) 1.020 (1.003-1.030) 01/02/22 03:50 Ur Protein (Man) 2+ mg/dL (Negative) 01/02/22 03:50 Ur Ketones (Man) Negative (Negative) 01/02/22 03:50 Ur Nitrite (Man) Negative (Negative) 01/02/22 03:50 Ur Reducing Substances Not Reportable 01/02/22 03:50 Urine Ictotest Not Reportable 01/02/22 03:50 Leukocyte Esterase (Man) Negative (Negative) 01/02/22 03:50 Urine WBC (Auto) 1.0 /HPF (0.0-6.0) 01/02/22 03:50 Urine RBC (Auto) 2.0 /HPF (0.0-6.0) 01/02/22 03:50 Urine RBC (Manual) Trace (Negative) 01/02/22 03:50 Salicylates < 0.3 mg/dL (2.8-20.0) L 01/01/22 21:07 Acetaminophen 5.0 ug/mL (10.0-30.0) L 01/01/22 21:07 Plasma/Serum Alcohol 0.01 % (0-0.07) 01/01/22 21:07 Syphilis IgG/IgM Ab Nonreactive (NonReactive) 01/01/22 20:48 [place]/IV: Voiding Method Toilet Active Medications - Current Medications Current Medications: Generic Name Dose Route Start Last Admin Trade Name Freq PRN Reason Stop Dose Admin Acetaminophen 650 mg 01/02/22 03:48 Acetaminophen 325 Mg Tab PO Q6H PRN Pain, Mild (1-3) Amiodarone HCl 200 mg 01/03/22 15:00 Amiodarone 200 Mg Tab PO BID JYOTI Atorvastatin Calcium 40 mg 01/02/22 22:00 01/02/22 22:32 Atorvastatin 40 Mg Tab PO 40 mg QHS JYOTI Administration Sodium Chloride 1,000 mls @ 100 mls/hr 01/02/22 04:00 01/03/22 00:19 Nacl 0.9% 1000 Ml IV 100 mls/hr DIRECT JYOTI Administration Lorazepam 2 mg 01/01/22 20:43 Lorazepam 2 Mg/Ml Vial IV Q1HR PRN CIWA-Ar 8-15 Lorazepam 4 mg 01/01/22 20:43 Lorazepam 2 Mg/Ml Vial IV Q1HR PRN CIWA-Ar 16-25 Lorazepam 4 mg 01/01/22 20:43 Lorazepam 2 Mg/Ml Vial IV Q15MIN PRN CIWA-Ar >25 Metoprolol Tartrate 50 mg 01/02/22 12:00 01/03/22 11:12 Metoprolol Tartrate 25 Mg Tab PO 50 mg BID JYOTI Administration Morphine Sulfate 2 mg 01/02/22 03:48 Morphine 4 Mg/1 Ml Inj IV Q5MIN PRN Chest Pain unrelieved by NTG Nitroglycerin 0.4 mg 01/02/22 03:48 Nitroglycerin 0.4 Mg Tab Subl SL Q5M PRN Chest Pain Ondansetron HCl 4 mg 01/01/22 22:39 Ondansetron 4 Mg/2 Ml Inj IV Q8H PRN Nausea And Vomiting Sodium Chloride 10 ml 01/02/22 10:00 01/03/22 11:13 Sodium Chloride 0.9% 10 Ml Flush Syringe IV 10 ml BID JYOTI Administration Sodium Chloride 10 ml 01/02/22 03:48 Sodium Chloride 0.9% 10 Ml Flush Syringe IV PRN PRN LINE FLUSH Tramadol HCl 50 mg 01/02/22 03:48 Tramadol 50 Mg Tab PO Q6H PRN Pain, Moderate (4-6) Nutrition/Malnutrition Assess - Dietary Evaluation Nutrition/Malnutrition Findings: Nutrition Notes Start: 01/02/22 15:43 Freq: Status: Active Protocol: Document 01/02/22 15:44 NOEL (Rec: 01/02/22 15:53 NOEL [id number]) Nutrition Notes Need for Assessment generated from: battery charger tester,MST Initial or Follow up Brief Note Current Diagnosis Hypertension,Heart Failure Other Pertinent Diagnosis atrial flutter with RVR, sickle cell dz, tactile hallucination Current Diet Cardiac Labs/Tests Reviewed Pertinent Medications NS at 100ml/hr Height 5 ft 9 in Weight 63.503 kg Usual Body Weight 63.64 kg [place] Body Weight (kg) 72.72 BMI 20.7 Intake Prior to Admission Good Weight change and time frame Pt reports no recent wt changes; says his wt may fluctuate sec to sickle cell Subjective/Other Information Pt screened for malnutrition risk. He reports good appetite (as long as the food is "good"); he does not like ONS. Pt on CIWA protocol; psych consulted. Burn Absent Trauma Absent GI Symptoms None Skin Integrity/Comment Macular rash on palms, chest, abd Minimum of two criteria No Is patient on ventilator? No Is Patient Ambulatory and/or Out of Bed Yes REE-([facility]-ambulatory/OOB) [ 1853.033 [id number]] Calculation Used for Recommendations [facility] Additional Notes Pro needs 1-1.2g/k-76g/ day Fluid needs 1ml/kcal Nutrition Intervention Follow-Up By: 01/09/22 Additional Comments F/U: intakes, wt
--- NOTE | 2022-01-03 16:39 | Cat Scan Report ---
CTA CHEST WITH IV CONTRAST INDICATION: SHORTNESS OF BREATH. Chest pain TECHNIQUE: Axial CT images were obtained through the chest after injection of 100 mL Omnipaque 350 IV contrast. 3 plane MIP reconstructions were produced. All CT scans at this location are performed using CT dose reduction for ALARA by means of automated exposure control. COMPARISON: None available. FINDINGS: PULMONARY ARTERIES: No pulmonary emboli. AORTA AND ARTERIES: No acute abnormality. MEDIASTINUM: Moderate mediastinal adenopathy. One of the largest nodes is seen within the AP window a nd measures 1.1 cm in diameter. There is borderline enlargement of several nodes within the right hil um. LUNGS: Emphysema. There is some scarring identified within the right upper lobe. No acute airspace di sease is identified. Coronary artery calcification: Mild. UPPER ABDOMEN: Mild prominence of the left collecting system only partially visualized. The liver is cirrhotic in appearance.. BONES: No significant osseous abnormality. IMPRESSION: 1. No CT evidence for pulmonary embolism. 2. Emphysema and other incidental findings as noted above including [id number] nonspecific medi astinal adenopathy. Signer Name: Chang Dubois MD Signed: 01/03/2022 4:35 PM Workstation Name: [id number]
--- NOTE | 2022-01-03 17:35 | Cat Scan Report ---
CT ABDOMEN AND PELVIS WITHOUT CONTRAST INDICATION / CLINICAL INFORMATION: liver lesion, hydronephrosis. TECHNIQUE: Axial CT images were obtained through the abdomen and pelvis without IV contrast. All CT scans at this location are performed using CT dose reduction for ALARA by means of automated exposure control. COMPARISON: Complete abdominal ultrasound dated January 03, [address] of the chest dated 2021 FINDINGS: LOWER CHEST: Cardiomegaly. AORTA / ARTERIES: No significant abnormality. IVC / VEINS: No significant abnormality. LYMPH NODES: Nonspecific right external iliac 1.2 cm lymph node. COLON: No significant abnormality. APPENDIX: Not visualized. STOMACH / SMALL BOWEL: No significant abnormality. PERITONEUM: No free fluid. No free air. No fluid collection. LIVER: There is nodular contour to the liver suggesting cirrhosis. GALLBLADDER: Cholecystectomy. BILE DUCTS: No significant abnormality. PANCREAS: No significant abnormality. SPLEEN: Spleen is heavily calcified and shrunken. ADRENALS: Incompletely evaluated hypoattenuating lesion involving the left adrenal gland, measuring u p to 1.6 cm and most likely representing a adrenal adenoma. RIGHT KIDNEY / URETER: No significant abnormality, specifically the previously seen 2.5 cm lesion is not seen and may be related to prominent lobulation. LEFT KIDNEY / URETER: Moderate left hydronephrosis. Contrast from previous CT chest is noted within t he bilateral collecting systems. Left renal cyst. URINARY BLADDER: No significant abnormality. REPRODUCTIVE ORGANS: No significant abnormality. SKELETAL SYSTEM: Compression deformity of L2, likely chronic. ADDITIONAL FINDINGS: None. IMPRESSION: 1. Moderate left hydronephrosis without obstructing etiology 2. No mass lesion noted involving the right kidney. Previously seen abnormality on ultrasound may rep resent prominent lobulation. 3. Cirrhotic appearing liver. 4. Nonspecific 1.2 cm right external iliac lymph node. 5. Additional findings as above. Signer Name: Gregorio Villarreal DO Signed: 01/03/2022 5:31 PM Workstation Name: [email or web address]
[2022-01-03] MEDS: AMIODARONE 200 MG TAB PO SCH ×2 (18:22→23:01)
[2022-01-03 23:06] LABS: Hemoglobin 6.9 gm/dl (11.8-15.2); Mean Corpuscular HGB Conc 36 % (32-34); Mean Corpuscular Volume 105 fl (84-94); Platelet Count 194 K/mm3 (140-440); Red Blood Count 1.81 M/mm3 (3.65-5.03); Red Cell Distribution Width 19.1 % (13.2-15.2)
[2022-01-03 23:09] LABS: Hematocrit 19.1 % (35.5-45.6)
[2022-01-04] MEDS ORDERED: SODIUM CHLORIDE 0.9% 500 ML 500 ML IV ONE (00:06)
[2022-01-04] MEDS ORDERED: SODIUM CHLORIDE 0.9% 500 ML 500 ML ONE (03:45)
[2022-01-04 07:27] VITALS: BP 127/83
[2022-01-04] MEDS ORDERED: SODIUM CHLORIDE 0.9% 500 ML 500 ML IV SCH (08:00)
[2022-01-04 08:54] LABS: Hematocrit 24.8 % (35.5-45.6); Hemoglobin 8.8 gm/dl (11.8-15.2); Mean Corpuscular HGB Conc 35 % (32-34); Mean Corpuscular Volume 102 fl (84-94); Platelet Count 224 K/mm3 (140-440); Red Blood Count 2.42 M/mm3 (3.65-5.03); Red Cell Distribution Width 18.4 % (13.2-15.2)
[2022-01-04 09:12] LABS: Alanine Aminotransferase 21 units/L (7-56); Albumin 3.3 g/dL (3.9-5); BUN/Creatinine Ratio 11; Blood Urea Nitrogen 15 mg/dL (9-20); Calcium 7.8 mg/dL (8.4-10.2); Hemolysis Index 41
--- NOTE | 2022-01-04 09:33 | Electrocardiograph Report ---
[facility] Test Date: 2022-01-01 Test Time: 22:36:46 Pat Name: NICA VIEIRA Department: Room: A485 1 Gender: M Embalmer/Funeral Director: ARABELLA : 1960 Requested By: CHRISTINA SANTANA Order Number: [id number] Reading MD: Casey Alvares Measurements Intervals [place] Rate: 112 P: MO: QRS: 8 QRSD: 96 T: 77 QT: 368 QTc: 503 Interpretive Statements Atrial fibrillation/flutter with variable block nonspecific st-tl No previous ECG available for comparison Electronically Signed On 01-04-2022 9:33:54 EDT by Casey Alvares
--- NOTE | 2022-01-04 09:33 | Electrocardiograph Report ---
[facility] Test Date: 2022-01-01 Test Time: 20:24:51 Pat Name: NICA VIEIRA Department: Room: A485 1 Gender: M Inspector Repairer: ARABELLA : 1960 Requested By: CHRISTINA SANTANA Order Number: [id number] Reading MD: Casey Alvares Measurements Intervals [place] Rate: 117 P: 94 RI: 183 QRS: -49 QRSD: 92 T: -11 QT: 367 QTc: 513 Interpretive Statements Sinus tachycardia Left anterior fascicular block Nonspecific T abnormalities, inferior leads l No previous ECG available for comparison Electronically Signed On 01-04-2022 9:33:21 EDT by Casey Alvares
[2022-01-04 09:50] LABS: Total Cells Counted 100
[2022-01-04 09:51] LABS: Anisocytosis 2+; Ovalocytes 1+; Poikilocytosis 2+; Schistocytes Rare; Sickle Cells Few; Tear Drop Cells Few
[2022-01-04 09:52] LABS: Platelet Estimate Consistent w Auto
[2022-01-04] MEDS: METOPROLOL TARTRATE 25 MG TAB PO SCH (09:56)
[2022-01-04] MEDS: AMIODARONE 200 MG TAB PO SCH (09:56)
--- NOTE | 2022-01-04 12:33 | Discharge Summary ---
Providers - Providers Date of Admission: 01/02/22 03:00 Attending physician: DEJUAN HEDRICK MD 01/02/22 Consult to Cardiac Rehabilitation [CONS] Routine Reason For Exam: Phase I 01/02/22 03:49 Consult to Cardiology [CONS] Routine Consulting Provider: BONG PARKINSON Reason For Exam: a.flutter 01/02/22 03:59 psychiatry consult [Consult to Mental Health] [CONS] Routine Reason For Exam: Tactile hallucination 01/02/22 09:55 Consult to Physician [CONS] Routine Comment: Consulting Provider: GENIE JACOBS Physician Instructions: Reason For Exam: anemia 01/03/22 08:06 Consult to Physician [CONS] Routine Comment: Consulting Provider: ISMAEL BRADSHAW Physician Instructions: Reason For Exam: ANEMIA Primary care physician: NUPUR MALDONADO Hospitalization Reason for admission: atrial flutter Condition: Good Hospital course: 61-year-old gentleman with history of sickle cell, a flutter, status post ablation, not currently on systemic anticoagulation, presenting to the department today with a primary complaints of chest pressure, and rapid heartbeat. No headache, neck pain, abdominal pain, vomiting, diaphoresis. On review of systems, endorses sensation of bug crawling and tactile hallucinations on the face for about 6 months.He is not homicidal suicidal. He has a nonspecific nonblanching macular rash on his bilateral palms, chest, and abdomen. He reports no sexual activity and he reports no IV drug use. He still has his spleen, but reports a distant history of cholecystectomy. He does not recall the medications that he takes. In the emergency room EKG showed narrow complex tachycardia, with a rate of 117 bpm, with a left axis deviation, and a left anterior fascicular block. There is poor R wave progression. Suspect a flutter, with 2: [address] scan brain negative for acute findings. Lovenox ordered. Went back to patient's bedside with additional diltiazem. Administered 15 mg, and then 10 mg respectively, now with appropriate decrease in heart rate, and obvious appreciation of flutter waves, on desk monitor. Currently, heart rate in the 90s, with variable flutter conduction. Past History Past Medical History: GERD, other (Sickle cell disease ulcers and cardiac history) Past Surgical History: Other (Ablation) Social history: no significant social history Family history: hypertension 01/02: Patient still with mild on easy feeling but denies shortness of breath. Still in a flutter. We will proceed with a CTA to rule out pulmonary embolism considering noncompliance with his anticoagulation. And also elevated D-dimer. We will also check a Doppler of lower extremity. I did consult inhalation therapy teacher as patient is anemic and this patient requires anticoagulation will need to have a close monitoring. We will check stool for occult blood to rule out any other pathology and try to obtain records to understand his baselines. Plan discussed with the patient counseling provided on compliance with medication for 15 minutes advance care planning discussed for 30 minutes patient verbalized understanding. 01/03: Discussed with smokehouse operator today reviewed medication list and will stop anticoagulation in the setting of worsening anemia. Awaiting for lab work from today. Also discontinue aspirin at this time. Patient has past history of atrial fibrillation ablation done at [facility] amiodarone is being initiated at this time to assist with control. Also gone ahead to consult hematology considering hx of Sickle cell. US abdomen showed 2.5 cm lesion in the liver and recommended CT ABD AND PELVIS, also moderate left hydronephrosis. Renal function is stable GI eval noted. Patient not wanting Endoscopy at this time. 01/04: Patient reports improved energy, He was transfused and HEMOGlobin is now 8.8. He understands that due to his severe anemia he is not a candidate for anticoagulation and will follow with his primary smokehouse operator and GI outpatient. I advised him of the finding in the liver. He will also have that follow up. (1) Atrial flutter with rapid ventricular response Current Visit: Yes Status: Acute Plan to address problem: Admit the patient to the medical telemetry. Lipitor 40 mg p.o. daily. Lopressor 25 mg p.o. twice daily. Echocardiogram. Cardiology evaluation (2) Macrocytic anemia, possible sickle cell related, Current Visit: Yes Status: Acute Plan to address problem: Stable. We will recheck the CBC in the morning (3) Macular rash Current Visit: Yes Status: Acute Plan to address problem: We will monitor the patient closely. We will put the patient on Benadryl ointment. If needed consult dermatology (4) Tactile hallucination Current Visit: Yes Status: Acute Plan to address problem: We will monitor the patient closely . We will consult psych for evaluation (5) Epigastric abdominal pain Current Visit: Yes Status: Acute (6) Liver Lesion (7) History of peptic ulcer disease Current Visit: Yes Status: Acute (8) Left Hydronephrosis Disposition: 01 HOME / SELF CARE / HOMELESS Final Discharge Diagnosis (Prints w/discharge instructions): (1) Atrial flutter with rapid ventricular response. (2) Macrocytic anemia, possible sickle cell related,. (3) Macular rash. (4) Tactile hallucination. (5) Epigastric abdominal pain. (6) Liver Lesion. (7) History of peptic ulcer disease. (8) Left Hydronephrosis Time spent for discharge: 35 mins Core Measure Documentation - Palliative Care Palliative Care/ Comfort Measures: Not Applicable - Core Measures Any of the following diagnoses?: none Exam - Physical Exam Narrative exam: General appearance: Present: no acute distress, well-nourished - EENT Eyes: Present: PERRL ENT: hearing intact, clear oral mucosa - Neck Neck: Present: supple, normal ROM - Respiratory Respiratory effort: normal Respiratory: bilateral: CTA - Cardiovascular Heart Sounds: Present: S1 & S2. Irregularly irregular absent: rub, click - Extremities Extremities: pulses symmetrical, No edema Peripheral Pulses: within normal limits - Abdominal General gastrointestinal: Present: soft, non-tender, non-distended, normal bowel sounds Male genitourinary: Present: normal - Integumentary Integumentary: Present: clear, warm, dry - Musculoskeletal Musculoskeletal: gait normal, strength equal bilaterally - Psychiatric Psychiatric: appropriate mood/affect, intact judgment & insight - Neurologic Neurologic: CNII-XII intact, moves all extremities - Constitutional Vitals: Temp Pulse Resp BP Pulse Ox 98.2 F 106 H 17 127/83 95 01/04/22 07:26 01/04/22 09:56 01/04/22 07:26 01/04/22 07:26 01/04/22 06:11 Plan Activity: advance as tolerated, fall precautions Diet: low fat Special Instructions: record daily weights, record daily BP diary Additional Instructions: avoid all NSAIDS Follow up with: NUPUR MALDONADO MD [Primary Care Provider] - 3-5 Days [facility] [Outside] - 7 Days Prescriptions: AtorvaSTATin [Lipitor] 40 mg PO QHS #30 tablet Amiodarone [Cordarone 200 MG TAB] 200 mg PO BID #60 tablet Folic Acid 1 mg PO DAILY #30 tab Metoprolol [Lopressor TAB] 50 mg PO BID #60 tablet Famotidine [Pepcid] 20 mg PO BID #60 tablet
--- NOTE | 2022-01-04 14:39 | Progress Note ---
Assessment and Plan - Patient Problems (1) Atrial flutter with rapid ventricular response Current Visit: Yes Status: Acute Plan to address problem: Patient presents with atrial flutter with 2-1 AV conduction. History of atrial fibrillation ablation in the past at [facility]. Continue amiodarone on discharge, follow-up at [place] with his usual pediatric nephrologist. If indicated, he may benefit from another future attempt at atrial flutter ablation. Patient was found with severe anemia on this presentation, necessitating GI and hematology consultations. He also received blood transfusion. In this setting, he is a high risk candidate for resumption of oral anticoagulation at this time. Subjective Date of service: 01/04/22 Principal diagnosis: Anemia, tachycardia, atrial flutter Interval history: Patient has no new cardiac complaints, underwent blood transfusion today for persistent anemia. Objective Vital Signs Temp Pulse Resp BP Pulse Ox 01/04/22 09:56 106 H 01/04/22 07:26 98.2 F 106 H 17 127/83 01/04/22 07:11 98.4 F 104 H 18 129/87 01/04/22 06:41 99 F 102 H 18 125/77 01/04/22 06:11 8.4 F L 102 H 18 123/79 95 01/04/22 05:41 98.2 F 93 H 17 122/80 93 01/04/22 05:11 98.2 F 91 H 18 120/79 01/04/22 04:56 98.5 F 103 H 18 121/83 01/04/22 04:14 98.9 F 104 H 18 117/77 95 01/04/22 04:00 96 01/04/22 02:08 114 H 01/04/22 00:15 98.5 F 112 H 17 107/71 94 01/04/22 00:00 111 H 01/03/22 23:03 110 H 112/67 01/03/22 22:22 112 H 01/03/22 20:26 98.8 F 110 H 18 112/67 93 01/03/22 15:46 102 H 96 01/03/22 15:10 98.4 F 116 H 18 110/68 95 - Physical Examination General: No Apparent Distress HEENT: Positive: PERRL Neck: Positive: neck supple. Negative: JVD/HJR Cardiac: Positive: Irregularly Regular Lungs: Positive: Decreased Breath Sounds Neuro: Positive: Grossly Intact Abdomen: Positive: Soft Skin: Positive: Rash Extremities: Absent: edema - Labs and Meds Cardiac Enzymes 01/04/22 Range/Units 08:15 AST 50 H (5-40) units/L CBC 01/03/22 01/04/22 Range/Units 22:19 08:15 WBC 8.3 8.3 (4.5-11.0) K/mm3 RBC 1.81 L 2.42 L (3.65-5.03) M/mm3 Hgb 6.9 L 8.8 L (11.8-15.2) gm/dl Hct 19.1 L* 24.8 L (35.5-45.6) % Plt Count 194 224 (140-440) K/mm3 Comprehensive Metabolic Panel 01/04/22 Range/Units 08:15 Sodium 140 (137-145) mmol/L Potassium 4.2 (3.6-5.0) mmol/L Chloride 110.7 H (98-107) mmol/L Carbon Dioxide 14 L (22-30) mmol/L BUN 15 (9-20) mg/dL Creatinine 1.4 H (0.8-1.3) mg/dL Glucose 85 (75-100) mg/dL Calcium 7.8 L (8.4-10.2) mg/dL AST 50 H (5-40) units/L ALT 21 (7-56) units/L Alkaline Phosphatase 140 H (35-129) units/L Total Protein 7.2 (6.3-8.2) g/dL Albumin 3.3 L (3.9-5) g/dL
[2022-01-07 21:11] LABS: Albumin 3.1 g/dL (3.8-4.8); Gamma Globulin 2.2 g/dL (0.8-1.7)
== END 2022-01-04 14:00 | disposition home or self-care (01) | DRG 309 ==
LOC: ED 17:40 → 4A 22:39 → OBSVTOIN 01-02 03:00
PROVIDERS: ADMIT Hospitalist; ATTEND Internal Medicine
PROC: 30233N1 Transfusion of Nonautologous Red Blood Cells into Peripheral Vein, Percutaneous Approach (ICD-10-PCS; principal; 2022-01-04)
DX: I48.92 Unspecified atrial flutter (principal); N13.30 Unspecified hydronephrosis; R44.2 Other hallucinations; K21.9 Gastro-esophageal reflux disease without esophagitis; Z82.49 Family history of ischemic heart disease and other diseases of the circulatory system; F31.9 Bipolar disorder, unspecified; D57.1 Sickle-cell disease without crisis; Z88.8 Allergy status to other drugs, medicaments and biological substances
CPT/HCPCS: 36415; 70450; 71045; 71275; 74176; 76700; 78580; 80048; 80053; 80061; 80320; 81001; 82728; 83550; 83735; 84165; 84439; 84443; 84484; 85007; 85025; 85027; 85045; 85379; 85610; 86334; 86592; 86850; 86900; 86901; 86920; 93005; 93306; 93970; 96374; 96376; 99291; G0378; J3490; A9540; C8929; G0480; J1650; J3360; J7030; J7040; J7120; P9016; Q9967

== ENCOUNTER 2022-01-18 04:24 | Inpatient (IN) | payer MEDICARE ==
[2022-01-18] MEDS ORDERED: ONDANSETRON 4 MG/2 ML INJ IV ONE ×2 (04:49→06:48)
[2022-01-18] MEDS ORDERED: MORPHINE 4 MG/1 ML INJ IV ONE (04:49)
[2022-01-18] MEDS ORDERED: PANTOPRAZOLE 40 MG INJ IV ONE (04:49)
--- NOTE | 2022-01-18 04:50 | Event Note ---
Date: 01/18/22 EMS documentation not available at time of chart dictation Medical screening examination note: 61-year-old gentleman with complex past medical history, sickle cell, A. fib/flutter, possible cirrhosis, known left-sided hydronephrosis, presenting to the department today with a complaint of central chest pressure and left-sided abdominal pain. Patient is awake and alert, protecting airway, moving 4 extremities. He is not certain if he is having typical sickle pain or different pain. Obtain appropriate laboratory studies, EKG, x-ray the chest abdomen pelvis, treat symptoms. Detailed history and physical to be performed by oncoming provider Vital Signs 01/18/22 04:26 Temperature 98 F Pulse Rate 108 H Respiratory 16 Rate Blood Pressure 158/93 [Right] O2 Sat by Pulse 99 Oximetry
[2022-01-18 05:33] LABS: Hematocrit 20.9 % (35.5-45.6); Hemoglobin 7.4 gm/dl (11.8-15.2); Mean Corpuscular HGB Conc 35 % (32-34); Mean Corpuscular Volume 108 fl (84-94); Platelet Count 237 K/mm3 (140-440); Red Blood Count 1.93 M/mm3 (3.65-5.03)
[2022-01-18 05:39] LABS: Red Cell Distribution Width 20.1 % (13.2-15.2)
--- NOTE | 2022-01-18 05:45 | XRay Report ---
ABDOMEN 3 VIEW INDICATION / CLINICAL INFORMATION: Chest pain with abdominal pain. COMPARISON: None available. FINDINGS: TUBES / LINES: None. BOWEL GAS PATTERN: No significant abnormality. FREE AIR / EXTRALUMINAL GAS: None seen. ADDITIONAL FINDINGS: Clips from prior cholecystectomy. No acute chest process is identified. Multiple pelvic phleboliths. IMPRESSION: 1. No acute findings. Signer Name: Jorge Holley MD Signed: 01/18/2022 5:41 AM Workstation Name: [email or web address]
[2022-01-18 05:49] LABS: INR 1.03 (0.87-1.13); Partial Thromboplastin Time 33.8 Sec. (24.2-36.6)
[2022-01-18 05:51] LABS: Alanine Aminotransferase 125 units/L (7-56); Albumin 3.8 g/dL (3.9-5); BUN/Creatinine Ratio 12; Blood Urea Nitrogen 19 mg/dL (9-20); Calcium 8.2 mg/dL (8.4-10.2); Hemolysis Index 117
[2022-01-18 06:47] LABS: Band Neutrophils # (Manual) 0.1 K/mm3; Basophils % (Manual) 0 % (0.0-1.8); Eosinophils % (Manual) 0 % (0.0-4.3); Total Cells Counted 100
[2022-01-18 06:48] LABS: Anisocytosis 2+; Hypochromasia 2+; Poikilocytosis 1+
[2022-01-18] MEDS ORDERED: fentaNYL 100 MCG/2 ML INJ IV ONE (06:48)
[2022-01-18] MEDS ORDERED: SODIUM CHLORIDE 0.9% 1000 ML 1,000 ML IV ONE ×2 (06:48→06:54)
[2022-01-18 06:49] LABS: Ovalocytes Few; Schistocytes Rare; Target Cells Few; Tear Drop Cells Few
[2022-01-18 06:50] LABS: Macrocytosis 2+; Platelet Estimate Consistent w Auto
--- NOTE | 2022-01-18 06:54 | Emergency Department Report ---
HPI - General Chief Complaint: Chest Pain Time Seen by Provider: 01/18/22 06:34 - HPI HPI: Room 21 The patient is a 61-year-old male present with a chief complaint of abdominal pain. Patient states for the past 3 days he has had a constant pain in the epigastric region. Patient states he has had a decreased appetite. Patient denies nausea vomiting or diarrhea. Patient admits to subjective fever. The patient has a history of sickle cell disease and states initially thought this was a sickle cell pain but now it feels different. Patient currently gives his pain a score of 10/10 ED Past Medical Hx - Past Medical History Hx Hypertension: Yes Hx Congestive Heart Failure: Yes Hx GERD: Yes Hx Sickle Cell Disease: Yes Additional medical history: Ulcers, atrial flutter - Surgical History Hx Cholecystectomy: Yes Additional Surgical History: Cardiac ablation - Family History Family history: no significant - Social History Smoking Status: Never Smoker Substance Use Type: Marijuana - Medications Home Medications: Home Medications Medication Instructions Recorded Confirmed Last Taken Type Acetaminophen/Codeine [Tylenol 1 tab PO Q6H PRN #10 tab 10/07/20 Unknown Rx /Codeine # 3 tab] Amiodarone [Cordarone 200 MG TAB] 200 mg PO BID #60 tablet 01/04/22 Unknown Rx AtorvaSTATin [Lipitor] 40 mg PO QHS #30 tablet 01/04/22 Unknown Rx Famotidine [Pepcid] 20 mg PO BID #60 tablet 01/04/22 Unknown Rx Folic Acid 1 mg PO DAILY #30 tab 01/04/22 Unknown Rx Metoprolol [Lopressor TAB] 50 mg PO BID #60 tablet 01/04/22 Unknown Rx ED Review of Systems ROS: Stated complaint: chest pain abdominal pain Other details as noted in HPI Constitutional: fever (Subjective) Eyes: denies: eye pain ENT: denies: throat pain Respiratory: no symptoms reported Cardiovascular: as per HPI Endocrine: no symptoms reported Gastrointestinal: abdominal pain. denies: nausea, vomiting, diarrhea Genitourinary: denies: dysuria Musculoskeletal: denies: back pain Neurological: denies: headache Physical Exam - Physical Exam Vital Signs: Vital Signs 01/18/22 04:26 Temperature 98 F Pulse Rate 108 H Respiratory 16 Rate Blood Pressure 158/93 [Right] O2 Sat by Pulse 99 Oximetry Physical Exam: GENERAL: The patient is well-developed well-nourished male lying on stretcher not appearing to be in acute distress. [] HEENT: Normocephalic. Atraumatic. Extraocular motions are intact. Patient has moist mucous membranes. NECK: Supple. Trachea midline CHEST/LUNGS: Clear to auscultation. There is no respiratory distress noted. HEART/CARDIOVASCULAR: Regular. There is no tachycardia. There is no gallop rub or murmur. ABDOMEN: The patient is guarding but admits to tenderness in the epigastric region. Patient has normal bowel sounds. There is no abdominal distention. SKIN: There is no rash. There is no edema. There is no diaphoresis. NEURO: The patient is awake, alert, and oriented. The patient is cooperative. The patient has no focal neurologic deficits. The patient has normal speech. GCS 15 MUSCULOSKELETAL: There is no evidence of acute injury. ED Course Vital Signs 01/18/22 04:26 Temperature 98 F Pulse Rate 108 H Respiratory 16 Rate Blood Pressure 158/93 [Right] O2 Sat by Pulse 99 Oximetry ED Medical Decision Making - Lab Data Result diagrams: 01/18/22 05:09 01/18/22 05:09 Laboratory Tests 01/18/22 01/18/22 01/18/22 05:09 05:09 05:09 WBC 11.8 H RBC 1.93 L Hgb 7.4 L Hct 20.9 L MCV 108 H MCH 38 H MCHC 35 H RDW 20.1 H Plt Count 237 Add Manual Diff Complete Total Counted 100 Seg Neuts % (Manual) 67.0 Band Neutrophils % 1.0 Lymphocytes % (Manual) 16.0 Reactive Lymphs % (Man) 0 Monocytes % (Manual) 16.0 H Eosinophils % (Manual) 0 Basophils % (Manual) 0 Metamyelocytes % 0 Myelocytes % 0 Promyelocytes % 0 Blast Cells % 0 Nucleated RBC % 7.0 H Seg Neutrophils # Man 7.9 H Band Neutrophils # 0.1 Lymphocytes # (Manual) 1.9 Abs React Lymphs (Man) 0.0 Monocytes # (Manual) 1.9 H Eosinophils # (Manual) 0.0 Basophils # (Manual) 0.0 Metamyelocytes # 0.0 Myelocytes # 0.0 Promyelocytes # 0.0 Blast Cells # 0.0 WBC Morphology Not Reportable Hypersegmented Neuts Not Reportable Hyposegmented Neuts Not Reportable Hypogranular Neuts Not Reportable Smudge Cells Not Reportable Toxic Granulation Not Reportable Toxic Vacuolation Not Reportable Dohle Bodies Not Reportable Pelger-Huet Anomaly Not Reportable Linda Rods Not Reportable Platelet Estimate Consistent w auto Clumped Platelets Not Reportable Plt Clumps, EDTA Not Reportable Large Platelets Not Reportable Giant Platelets Not Reportable Platelet Satelliting Not Reportable Plt Morphology Comment Not Reportable RBC Morphology Not Reportable Dimorphic RBCs Not Reportable Polychromasia Few Hypochromasia 2+ Poikilocytosis 1+ Anisocytosis 2+ Microcytosis Not Reportable Macrocytosis 2+ Spherocytes Not Reportable Pappenheimer Bodies Not Reportable Sickle Cells Not Reportable Target Cells Few Tear Drop Cells Few Ovalocytes Few Helmet Cells Not Reportable [place] Bodies Not Reportable [place] Rings Not Reportable Bloomingrose Cells Not Reportable Bite Cells Not Reportable Crenated Cell Not Reportable Elliptocytes Few Acanthocytes (Spur) Not Reportable Rouleaux Not Reportable Hemoglobin C Crystals Not Reportable Schistocytes Rare Malaria parasites Not Reportable Percent Retic 17.99 H Job Bodies Not Reportable Hem Pathologist Commnt No PT 14.9 INR 1.03 APTT 33.8 Sodium 130 L Potassium 5.3 H Chloride 98.2 Carbon Dioxide 19 L Anion Gap 18 BUN 19 Creatinine 1.6 H Estimated GFR 53 BUN/Creatinine Ratio 12 Glucose 115 H Calcium 8.2 L Total Bilirubin 5.60 H AST 140 H ALT 125 H Alkaline Phosphatase 156 H Troponin T < 0.010 Total Protein 7.6 Albumin 3.8 L Albumin/Globulin Ratio 1.0 Lipase 01/18/22 05:09 WBC RBC Hgb Hct MCV MCH MCHC RDW Plt Count Add Manual Diff Total Counted Seg Neuts % (Manual) Band Neutrophils % Lymphocytes % (Manual) Reactive Lymphs % (Man) Monocytes % (Manual) Eosinophils % (Manual) Basophils % (Manual) Metamyelocytes % Myelocytes % Promyelocytes % Blast Cells % Nucleated RBC % Seg Neutrophils # Man Band Neutrophils # Lymphocytes # (Manual) Abs React Lymphs (Man) Monocytes # (Manual) Eosinophils # (Manual) Basophils # (Manual) Metamyelocytes # Myelocytes # Promyelocytes # Blast Cells # WBC Morphology Hypersegmented Neuts Hyposegmented Neuts Hypogranular Neuts Smudge Cells Toxic Granulation Toxic Vacuolation Dohle Bodies Pelger-Huet Anomaly Linda Rods Platelet Estimate Clumped Platelets Plt Clumps, EDTA Large Platelets Giant Platelets Platelet Satelliting Plt Morphology Comment RBC Morphology Dimorphic RBCs Polychromasia Hypochromasia Poikilocytosis Anisocytosis Microcytosis Macrocytosis Spherocytes Pappenheimer Bodies Sickle Cells Target Cells Tear Drop Cells Ovalocytes Helmet Cells [place] Bodies [place] Rings Bloomingrose Cells Bite Cells Crenated Cell Elliptocytes Acanthocytes (Spur) Rouleaux Hemoglobin C Crystals Schistocytes Malaria parasites Percent Retic Job Bodies Hem Pathologist Commnt PT INR APTT Sodium Potassium Chloride Carbon Dioxide Anion Gap BUN Creatinine Estimated GFR BUN/Creatinine Ratio Glucose Calcium Total Bilirubin AST ALT Alkaline Phosphatase Troponin T Total Protein Albumin Albumin/Globulin Ratio Lipase 156 H - EKG Data -: EKG Interpreted by Ma EKG shows normal: sinus rhythm Rate: tachycardia (109 bpm) - EKG Data When compared to previous EKG there are: previous EKG unavailable Interpretation: nonspecific ST-T wave kvng - Radiology Data Radiology results: report reviewed (CT abdomen pelvis), image reviewed (CT ab domen pelvis) [address] [address] Cat Scan Report Signed Patient: NICA VIEIRA MR#: [id number] : 1960 Acct:[id number] Age/Sex: 61 / M ADM Date: 01/18/22 Loc: ED Attending Dr: Ordering Physician: ALEENA DELGADO MD Date of Service: 01/18/22 Procedure(s): CT abdomen pelvis wo con Accession Number(s): [id number] cc: ALEENA DELGADO MD CT ABDOMEN AND PELVIS WITHOUT CONTRAST INDICATION / CLINICAL INFORMATION: Epigastric pain, diffuse guarding. TECHNIQUE: Axial CT images were obtained through the abdomen and pelvis without IV contrast. All CT scans at this location are performed using CT dose reduction for ALARA by means of automated exposure control. COMPARISON: 01/03/2022 FINDINGS: LOWER CHEST: Stable cardiomegaly without acute process. LIVER: Hepatomegaly and cirrhotic morphology of the liver with capsular nodularity. GALLBLADDER/BILIARY: Cholecystectomy. PANCREAS: No significant abnormality. SPLEEN: Chronically atrophied and calcified spleen, likely associated with sickle cell disease. ADRENALS: Stable left adrenal adenoma and mild adenomatous hyperplasia of the right adrenal gland. KIDNEYS/URETERS: Stable moderate left hydronephrosis with transition to decompressed proximal ureter at the ureteropelvic junction. Findings are most likely secondary to a UPJ stricture without obstructing stone or mass identified. Negative for right urolithiasis or hydronephrosis. Mild bilateral renal cortical scarring. GI: No acute bowel inflammation, obstruction or evidence for ischemia. APPENDIX: No significant abnormality. PERITONEUM: No pneumoperitoneum, free peritoneal fluid or loculated fluid collection. LYMPH NODES: Stable enlarged right external iliac lymph node (series 2, image 1:30). No other pathologic lymphadenopathy. AORTA / ARTERIES: No significant abnormality. URINARY BLADDER: No significant abnormality. REPRODUCTIVE ORGANS: No significant abnormality. SKELETAL SYSTEM: Stable mild chronic L2 superior endplate compression deformity associated with a Schmorl's node. No acute fracture, dislocation or destructive osseous process. 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 IMPRESSION: 1. No acute abdominopelvic process. 2. 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 3. Other stable extensive chronic incidental findings, as detailed above. Signer Name: Rubens Holley MD Signed: 01/18/2022 7:40 AM Workstation Name: [email or web address] Transcribed By: Dictated By: RUBENS HOLLEY MD Electronically Authenticated By: RUBENS HOLLEY MD Signed Date/Time: 01/18/22739 DD/ 3 TD/TT: - Differential Diagnosis Pancreatitis, sickle cell pain crisis, peptic ulcer disease Critical care attestation.: If time is entered above; I have spent that time in minutes in the direct care of this critically ill patient, excluding procedure time. ED Disposition Clinical Impression: Acute abdominal pain, Acute pancreatitis Disposition: ADMITTED INPATIENT Is pt being admited?: Yes Does the pt Need Aspirin: No Condition: Fair Time of Disposition: 08:27 (Care transferred to hospitalist Dr. Robison (discussed with Dr. Cardenas))
--- NOTE | 2022-01-18 07:45 | Cat Scan Report ---
CT ABDOMEN AND PELVIS WITHOUT CONTRAST INDICATION / CLINICAL INFORMATION: Epigastric pain, diffuse guarding. TECHNIQUE: Axial CT images were obtained through the abdomen and pelvis without IV contrast. All CT scans at this location are performed using CT dose reduction for ALARA by means of automated exposure control. COMPARISON: 01/03/2022 FINDINGS: LOWER CHEST: Stable cardiomegaly without acute process. LIVER: Hepatomegaly and cirrhotic morphology of the liver with capsular nodularity. GALLBLADDER/BILIARY: Cholecystectomy. PANCREAS: No significant abnormality. SPLEEN: Chronically atrophied and calcified spleen, likely associated with sickle cell disease. ADRENALS: Stable left adrenal adenoma and mild adenomatous hyperplasia of the right adrenal gland. KIDNEYS/URETERS: Stable moderate left hydronephrosis with transition to decompressed proximal ureter at the ureteropelvic junction. Findings are most likely secondary to a UPJ stricture without obstruct ing stone or mass identified. Negative for right urolithiasis or hydronephrosis. Mild bilateral renal cortical scarring. GI: No acute bowel inflammation, obstruction or evidence for ischemia. APPENDIX: No significant abnormality. PERITONEUM: No pneumoperitoneum, free peritoneal fluid or loculated fluid collection. LYMPH NODES: Stable enlarged right external iliac lymph node (series 2, image 1:30). No other patholo gic lymphadenopathy. AORTA / ARTERIES: No significant abnormality. URINARY BLADDER: No significant abnormality. REPRODUCTIVE ORGANS: No significant abnormality. SKELETAL SYSTEM: Stable mild chronic L2 superior endplate compression deformity associated with a Vy morl's node. No acute fracture, dislocation or destructive osseous process. 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 IMPRESSION: 1. No acute abdominopelvic process. 2. 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 3. Other stable extensive chronic incidental findings, as detailed above. Signer Name: Jorge Holley MD Signed: 01/18/2022 7:40 AM Workstation Name: [email or web address]
[2022-01-18] MEDS ORDERED: MORPHINE 2 MG/1 ML INJ IV PRN (08:30)
[2022-01-18] MEDS ORDERED: ACETAMINOPHEN 325 MG TAB PO PRN ×2 (08:30→10:07)
[2022-01-18] MEDS ORDERED: ONDANSETRON 4 MG/2 ML INJ IV PRN ×2 (08:30→10:07)
--- NOTE | 2022-01-18 09:59 | History and Physical Report ---
History of Present Illness Date of examination: 01/18/22 Date of admission: 01/10/2022 Chief complaint: Abdominal pain History of present illness: 61-year-old male with past medical history of hypertension sickle cell disease, PUD, GERD CHF and atrial flutter chief complaint of abdominal pain. Patient reports epigastric abdominal pain that has progressively worsened over the past 3 days. Patient reports associated decreased appetite but denies any nausea or vomiting. Patient reports subjective fever but no chills. No cough or cold- like symptoms. No headache or visual disturbance. Patient reports no previous history of pancreatitis but does report history of cholecystitis status post cholecystectomy Past History Past Medical History: GERD, heart failure, hypertension, other (Sickle cell disease) Past Surgical History: cholecystectomy, Other (Cardiac ablation) Social history: no significant social history Family history: no significant family history Medications and Allergies Allergies Allergy/AdvReac Type Severity Reaction Status Date / Time ibuprofen AdvReac Nausea Verified 10/06/20 17:36 Home Medications Medication Instructions Recorded Confirmed Last Taken Type Acetaminophen/Codeine [Tylenol 1 tab PO Q6H PRN #10 tab 10/07/20 Unknown Rx /Codeine # 3 tab] Amiodarone [Cordarone 200 MG TAB] 200 mg PO BID #60 tablet 01/04/22 Unknown Rx AtorvaSTATin [Lipitor] 40 mg PO QHS #30 tablet 01/04/22 Unknown Rx Famotidine [Pepcid] 20 mg PO BID #60 tablet 01/04/22 Unknown Rx Folic Acid 1 mg PO DAILY #30 tab 01/04/22 Unknown Rx Metoprolol [Lopressor TAB] 50 mg PO BID #60 tablet 01/04/22 Unknown Rx Active Meds: Active Medications Acetaminophen (Acetaminophen 325 Mg Tab) 650 mg PO Q4H PRN PRN Reason: Pain MILD(1-3)/Fever >100.5/CAR Sodium Chloride (Nacl 0.9% 1000 Ml) 1,000 mls @ 125 mls/hr IV ONCE ONE Stop: 01/18/22 14:47 Morphine Sulfate (Morphine 2 Mg/1 Ml Inj) 2 mg IV Q4H PRN PRN Reason: Pain, Moderate (4-6) Ondansetron HCl (Ondansetron 4 Mg/2 Ml Inj) 4 mg IV Q8H PRN PRN Reason: Nausea And Vomiting Sodium Chloride (Sodium Chloride 0.9% 10 Ml Flush Syringe) 10 ml IV BID JYOTI Sodium Chloride (Sodium Chloride 0.9% 10 Ml Flush Syringe) 10 ml IV PRN PRN PRN Reason: LINE FLUSH Review of Systems All systems: negative Exam - Constitutional Vitals: Temp Pulse Resp BP Pulse Ox 99.6 F 108 H 16 158/93 99 01/18/22 08:54 01/18/22 04:26 01/18/22 04:26 01/18/22 04:26 01/18/22 04:26 General appearance: Present: no acute distress, well-nourished - EENT Eyes: Present: PERRL ENT: hearing intact, clear oral mucosa - Neck Neck: Present: supple, normal ROM - Respiratory Respiratory effort: normal Respiratory: bilateral: CTA - Cardiovascular Heart Sounds: Present: S1 & S2. Absent: rub, click - Extremities Extremities: pulses symmetrical, No edema Peripheral Pulses: within normal limits - Abdominal General gastrointestinal: Present: soft, non-tender, non-distended, normal bowel sounds Male genitourinary: Present: normal - Integumentary Integumentary: Present: clear, warm, dry - Musculoskeletal Musculoskeletal: gait normal, strength equal bilaterally - Psychiatric Psychiatric: appropriate mood/affect, intact judgment & insight - Neurologic Neurologic: CNII-XII intact, moves all extremities HEART Score - HEART Score Troponin: Troponin T < 0.010 ng/mL (0.00-0.029) 01/18/22 05:09 Results - Labs CBC & Chem 7: 01/18/22 05:09 01/18/22 05:09 Labs: Abnormal lab results 01/18/22 01/18/22 01/18/22 Range/Units 05:09 05:09 05:09 WBC 11.8 H (4.5-11.0) K/mm3 RBC 1.93 L (3.65-5.03) M/mm3 Hgb 7.4 L (11.8-15.2) gm/dl Hct 20.9 L (35.5-45.6) % MCV 108 H (84-94) fl MCH 38 H (28-32) pg MCHC 35 H (32-34) % RDW 20.1 H (13.2-15.2) % Monocytes % (Manual) 16.0 H (0.0-7.3) % Nucleated RBC % 7.0 H (0.0-0.9) % Seg Neutrophils # Man 7.9 H (1.8-7.7) K/mm3 Monocytes # (Manual) 1.9 H (0.0-0.8) K/mm3 Percent Retic 17.99 H (0.78-2.58) % Sodium 130 L (137-145) mmol/L Potassium 5.3 H (3.6-5.0) mmol/L Carbon Dioxide 19 L (22-30) mmol/L Creatinine 1.6 H (0.8-1.3) mg/dL Glucose 115 H (75-100) mg/dL Calcium 8.2 L (8.4-10.2) mg/dL Total Bilirubin 5.60 H (0.1-1.2) mg/dL AST 140 H (5-40) units/L ALT 125 H (7-56) units/L Alkaline Phosphatase 156 H (35-129) units/L Albumin 3.8 L (3.9-5) g/dL Lipase 156 H (13-60) units/L Assessment and Plan 61-year-old male presents with complaints of abdominal pain. Patient admitted with diagnosis below Acute pancreatitis Abdominal pain Left hydronephrosis Hypertension Anemia History of a flutter Hyponatremia Hospital course: 01/18/2022. 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 Urology consultation patient does have elevated lipase revealing a mild acute pancreatitis. Patient denies any alcohol use. We will check lipid profile. However, patient had normal triglycerides 01/02/2022. Patient has a history of cholecystectomy. We will consult GI for further evaluation. Etiology of anemia is unknown. We will check iron studies. Hemoccult stool.
[2022-01-18] MEDS ORDERED: HYDROcodone/ACETAMINOPHEN 5-325 MG TAB PO PRN (10:07)
[2022-01-18] MEDS: ENOXAPARIN 40 MG/0.4 ML INJ SUB-Q SCH (11:34)
[2022-01-18 11:48] LABS: Bilirubin,Urine NEG (Negative); Blood,Urine MOD (Negative); Color,Urine Amber (Yellow)
[2022-01-18 11:56] LABS: Renal Epithelial Cells,Urine <1 /LPF
--- NOTE | 2022-01-18 15:10 | Gastroenterology Consultation ---
History of Present Illness - Reason for Consult Consult date: 01/18/22 abdominal pain Requesting physician: ELVIA CLEMENTS - History of Present Illness This is a 61-year-old male with history of sickle cell disease, a flutter, CHF, peptic ulcer disease, reflux and a recent admission for anemia and abdominal pain. Patient is presenting to the hospital for progressive abdominal pain and shortness of breath. GI consulted for evaluation for abdominal pain. Patient reports having epigastric pain that is radiating down to his lower abdomen worsening for the past 3 days. Patient has been having intermittent abdominal pain for several months. No nausea vomiting or bleeding symptoms noted. Patient was seen by GI at an earlier admission this month. Per note patient declined any endoscopic evaluation at that time. Patient states that he has history of ulcer disease with a EGD done several years ago. Most of his care is done at [facility]. Unfortunately we do not have any records available at this time. Patient denies any NSAID use. No alcohol use. Work-up so far with CT abdomen pelvis showing hydronephrosis, signs of cirrhosis with nodular liver, status post cholecystectomy. No signs of pancreatitis noted. Labs showed mildly elevated lipase into 150. Chronic anemia. Obtained/updated/reviewed patient's current medications Past History Past Medical History: GERD, heart failure, hypertension, other (Sickle cell disease) Past Surgical History: cholecystectomy, Other (Cardiac ablation) Social history: no significant social history Family history: no significant family history Medications and Allergies Allergies Allergy/AdvReac Type Severity Reaction Status Date / Time ibuprofen AdvReac Nausea Verified 10/06/20 17:36 Home Medications Medication Instructions Recorded Confirmed Last Taken Type Acetaminophen/Codeine [Tylenol 1 tab PO Q6H PRN #10 tab 10/07/20 01/18/22 01/16/22 Rx /Codeine # 3 tab] Amiodarone [Cordarone 200 MG TAB] 200 mg PO BID #60 tablet 01/04/22 01/18/22 01/16/22 Rx AtorvaSTATin [Lipitor] 40 mg PO QHS #30 tablet 01/04/22 01/18/22 01/16/22 Rx Famotidine [Pepcid] 20 mg PO BID #60 tablet 01/04/22 01/18/22 01/16/22 Rx Folic Acid 1 mg PO DAILY #30 tab 01/04/22 01/18/22 01/16/22 Rx Metoprolol [Lopressor TAB] 50 mg PO BID #60 tablet 01/04/22 01/18/22 01/16/22 Rx Apixaban [Eliquis] 2.5 mg PO BID 01/18/22 01/18/22 01/16/22 History Active Meds: Active Medications Acetaminophen (Acetaminophen 325 Mg Tab) 650 mg PO Q4H PRN PRN Reason: Pain MILD(1-3)/Fever >100.5/CAR Hydrocodone Bitart/Acetaminophen (Hydrocodone/Acetaminophen 5-325 Mg Tab) 2 each PO Q6H PRN PRN Reason: Pain, Moderate (4-6) Enoxaparin Sodium (Enoxaparin 40 Mg/0.4 Ml Inj) 40 mg SUB-Q QDAY JYOTI Last Admin: 01/18/22 11:34 Dose: 40 mg Morphine Sulfate (Morphine 4 Mg/1 Ml Inj) 2 mg IV Q4H PRN PRN Reason: Pain , Severe (7-10) Ondansetron HCl (Ondansetron 4 Mg/2 Ml Inj) 4 mg IV Q8H PRN PRN Reason: Nausea And Vomiting Sodium Chloride (Sodium Chloride 0.9% 10 Ml Flush Syringe) 10 ml IV BID [facility] Sodium Chloride (Sodium Chloride 0.9% 10 Ml Flush Syringe) 10 ml IV PRN PRN PRN Reason: LINE FLUSH Review of Systems - Review of Systems All systems: negative Constitutional: fever, chills, anorexia, weakness, poor appetite Ears, Nose, Throat: no difficulty swallowing Cardiovascular: chest pain, palpitations Respiratory: shortness of breath Gastrointestinal: abdominal pain, no nausea, no vomiting, no diarrhea, no constipation, no BRBPR, no melena, no hematochezia Neurological: weakness Hematologic/Lymphatic: no easy bruising Allergic/Immunologic: no wheezing Exam - Constitutional Vital Signs: Temp Pulse Resp BP Pulse Ox 99 F 109 H 18 129/87 92 01/18/22 12:45 01/18/22 12:45 01/18/22 12:45 01/18/22 12:45 01/18/22 12:45 General appearance: no acute distress - EENT Eyes: EOM intact ENT: hearing intact - Neck Neck: supple - Respiratory Respiratory effort: normal - Cardiovascular Rhythm: regular Heart Sounds: Present: S1 & S2 - Gastrointestinal General gastrointestinal: Present: soft, tender, non-distended - Integumentary Integumentary: Present: clear, warm - Neurologic Neurological: alert and oriented x3 - Psychiatric Psychiatric: appropriate mood/affect - Labs CBC & Chem 7: 01/18/22 05:09 01/18/22 05:09 Lab Results: Laboratory Results - last 24 hr 01/18/22 01/18/22 01/18/22 05:09 05:09 05:09 WBC 11.8 H RBC 1.93 L Hgb 7.4 L Hct 20.9 L MCV 108 H MCH 38 H MCHC 35 H RDW 20.1 H Plt Count 237 Add Manual Diff Complete Total Counted 100 Seg Neuts % (Manual) 67.0 Band Neutrophils % 1.0 Lymphocytes % (Manual) 16.0 Reactive Lymphs % (Man) 0 Monocytes % (Manual) 16.0 H Eosinophils % (Manual) 0 Basophils % (Manual) 0 Metamyelocytes % 0 Myelocytes % 0 Promyelocytes % 0 Blast Cells % 0 Nucleated RBC % 7.0 H Seg Neutrophils # Man 7.9 H Band Neutrophils # 0.1 Lymphocytes # (Manual) 1.9 Abs React Lymphs (Man) 0.0 Monocytes # (Manual) 1.9 H Eosinophils # (Manual) 0.0 Basophils # (Manual) 0.0 Metamyelocytes # 0.0 Myelocytes # 0.0 Promyelocytes # 0.0 Blast Cells # 0.0 WBC Morphology Not Reportable Hypersegmented Neuts Not Reportable Hyposegmented Neuts Not Reportable Hypogranular Neuts Not Reportable Smudge Cells Not Reportable Toxic Granulation Not Reportable Toxic Vacuolation Not Reportable Dohle Bodies Not Reportable Pelger-Huet Anomaly Not Reportable Linda Rods Not Reportable Platelet Estimate Consistent w auto Clumped Platelets Not Reportable Plt Clumps, EDTA Not Reportable Large Platelets Not Reportable Giant Platelets Not Reportable Platelet Satelliting Not Reportable Plt Morphology Comment Not Reportable RBC Morphology Not Reportable Dimorphic RBCs Not Reportable Polychromasia Few Hypochromasia 2+ Poikilocytosis 1+ Anisocytosis 2+ Microcytosis Not Reportable Macrocytosis 2+ Spherocytes Not Reportable Pappenheimer Bodies Not Reportable Sickle Cells Not Reportable Target Cells Few Tear Drop Cells Few Ovalocytes Few Helmet Cells Not Reportable [place] Bodies Not Reportable [place] Rings Not Reportable Monica Cells Not Reportable Bite Cells Not Reportable Crenated Cell Not Reportable Elliptocytes Few Acanthocytes (Spur) Not Reportable Rouleaux Not Reportable Hemoglobin C Crystals Not Reportable Schistocytes Rare Malaria parasites Not Reportable Percent Retic 17.99 H Job Bodies Not Reportable Hem Pathologist Commnt No PT 14.9 INR 1.03 APTT 33.8 Sodium 130 L Potassium 5.3 H Chloride 98.2 Carbon Dioxide 19 L Anion Gap 18 BUN 19 Creatinine 1.6 H Estimated GFR 53 BUN/Creatinine Ratio 12 Glucose 115 H Calcium 8.2 L Total Bilirubin 5.60 H AST 140 H ALT 125 H Alkaline Phosphatase 156 H Troponin T < 0.010 Total Protein 7.6 Albumin 3.8 L Albumin/Globulin Ratio 1.0 Lipase Urine Color Urine Turbidity Urine pH Ur Specific [place] Urine Protein Urine Glucose (UA) Urine Ketones Urine Blood Urine Nitrite Urine Bilirubin Urine Urobilinogen Ur Leukocyte Esterase Urine WBC (Auto) Urine RBC (Auto) U Epithel Cells (Auto) Ur Renal Epithelial Cell 01/18/22 01/18/22 05:09 10:34 WBC RBC Hgb Hct MCV MCH MCHC RDW Plt Count Add Manual Diff Total Counted Seg Neuts % (Manual) Band Neutrophils % Lymphocytes % (Manual) Reactive Lymphs % (Man) Monocytes % (Manual) Eosinophils % (Manual) Basophils % (Manual) Metamyelocytes % Myelocytes % Promyelocytes % Blast Cells % Nucleated RBC % Seg Neutrophils # Man Band Neutrophils # Lymphocytes # (Manual) Abs React Lymphs (Man) Monocytes # (Manual) Eosinophils # (Manual) Basophils # (Manual) Metamyelocytes # Myelocytes # Promyelocytes # Blast Cells # WBC Morphology Hypersegmented Neuts Hyposegmented Neuts Hypogranular Neuts Smudge Cells Toxic Granulation Toxic Vacuolation Dohle Bodies Pelger-Huet Anomaly Linda Rods Platelet Estimate Clumped Platelets Plt Clumps, EDTA Large Platelets Giant Platelets Platelet Satelliting Plt Morphology Comment RBC Morphology Dimorphic RBCs Polychromasia Hypochromasia Poikilocytosis Anisocytosis Microcytosis Macrocytosis Spherocytes Pappenheimer Bodies Sickle Cells Target Cells Tear Drop Cells Ovalocytes Helmet Cells [place] Bodies [place] Rings [place] Cells Bite Cells Crenated Cell Elliptocytes Acanthocytes (Spur) Rouleaux Hemoglobin C Crystals Schistocytes Malaria parasites Percent Retic Job Bodies Hem Pathologist Commnt PT INR APTT Sodium Potassium Chloride Carbon Dioxide Anion Gap BUN Creatinine Estimated GFR BUN/Creatinine Ratio Glucose Calcium Total Bilirubin AST ALT Alkaline Phosphatase Troponin T Total Protein Albumin Albumin/Globulin Ratio Lipase 156 H Urine Color Bhavani Urine Turbidity Clear Urine pH 6.0 Ur Specific [place] 1.010 Urine Protein 30 mg/dl Urine Glucose (UA) Neg Urine Ketones Neg Urine Blood Mod Urine Nitrite Neg Urine Bilirubin Neg Urine Urobilinogen 4.0 Ur Leukocyte Esterase Neg Urine WBC (Auto) 2.0 Urine RBC (Auto) 1.0 U Epithel Cells (Auto) < 1.0 Ur Renal Epithelial Cell <1 - Imaging CT Scan: report reviewed Assessment and Plan # Abdominal pain - unclear etiology. ?pancreatitis but lipase only mildly elevated and CT without signs of pancreatitis. - possible PUD, gastritis vs sickle cell crisis # Possible cirrhosis - CT showing nodular liver appearance - patient denies any prior known h/o cirrhosis - will check viral hep panel Rec - recommend PPI - will plan for EGD tomorrow. recommend cardiology consult for risk stratification. - NPO Mn - Patient Problems (1) Epigastric abdominal pain Current Visit: No Status: Acute
[2022-01-18] MEDS: PANTOPRAZOLE 40 MG TAB PO SCH (17:13)
[2022-01-18] MEDS: MORPHINE 4 MG/1 ML INJ IV PRN ×2 (17:16→21:38)
[2022-01-18 18:16] LABS: Albumin 3.6 g/dL (3.9-5); Bilirubin,Direct 3.3 mg/dL (0-0.2); Iron 48 ug/dL (49-181); Total Iron Binding Capacity 197 mcg/dL (250-450)
[2022-01-18 18:53] LABS: Hepatitis B Surface Antigen Reactive (Negative); Hepatitis C Virus Antibody Non-Reactive (NonReactive)
[2022-01-18 19:25] LABS: INR 1.08 (0.87-1.13)
[2022-01-19] MEDS: MORPHINE 4 MG/1 ML INJ IV PRN ×2 (02:10→08:59)
--- NOTE | 2022-01-19 08:43 | Progress Note ---
Assessment and Plan Assessment and plan: 61-year-old male presents with complaints of abdominal pain. Patient admitted with diagnosis below Abdominal pain Possible cirrhosis Left hydronephrosis Hypertension Anemia History of a flutter Hyponatremia Hospital course: 01/18/2022. 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 Urology consultation patient does have elevated lipase revealing a mild acute pancreatitis. Patient denies any alcohol use. We will check lipid profile. However, patient had normal triglycerides 01/02/2022. Patient has a history of cholecystectomy. We will consult GI for further evaluation. Etiology of anemia is unknown. We will check iron studies. Hemoccult stool. 01/19/2022. Etiology of abdominal pain may be secondary to PUD, gastritis VS sickle cell crisis. Patient for EGD today. Continue PPI History Interval history: No new issues overnight Hospitalist Physical - Constitutional Vitals: Temp Pulse Resp BP Pulse Ox 99.5 F 109 H 20 116/68 98 01/19/22 03:11 01/19/22 04:31 01/19/22 03:11 01/19/22 03:11 01/19/22 03:11 General appearance: Present: no acute distress, well-nourished - EENT Eyes: Present: PERRL, EOM intact ENT: hearing intact, clear oral mucosa, dentition normal - Neck Neck: Present: supple, normal ROM - Respiratory Respiratory effort: normal Respiratory: bilateral: CTA - Cardiovascular Rhythm: regular Heart Sounds: Present: S1 & S2. Absent: gallop, rub - Extremities Extremities: no ischemia, No edema, Full ROM - Abdominal General gastrointestinal: soft, non-tender, non-distended, normal bowel sounds - Integumentary Integumentary: Present: clear, warm, dry - Neurologic Neurologic: CNII-XII intact, moves all extremities HEART Score - HEART Score Troponin: Troponin T < 0.010 ng/mL (0.00-0.029) 01/18/22 05:09 Results - Labs CBC & Chem 7: 01/18/22 05:09 01/18/22 05:09 Labs: Laboratory Last Values WBC 11.8 K/mm3 (4.5-11.0) H 01/18/22 05:09 RBC 1.93 M/mm3 (3.65-5.03) L 01/18/22 05:09 Hgb 7.4 gm/dl (11.8-15.2) L 01/18/22 05:09 Hct 20.9 % (35.5-45.6) L 01/18/22 05:09 MCV 108 fl (84-94) H 01/18/22 05:09 MCH 38 pg (28-32) H 01/18/22 05:09 MCHC 35 % (32-34) H 01/18/22 05:09 RDW 20.1 % (13.2-15.2) H 01/18/22 05:09 Plt Count 237 K/mm3 (140-440) 01/18/22 05:09 Add Manual Diff Complete 01/18/22 05:09 Total Counted 100 01/18/22 05:09 Seg Neuts % (Manual) 67.0 % (40.0-70.0) 01/18/22 05:09 Band Neutrophils % 1.0 % 01/18/22 05:09 Lymphocytes % (Manual) 16.0 % (13.4-35.0) 01/18/22 05:09 Reactive Lymphs % (Man) 0 % 01/18/22 05:09 Monocytes % (Manual) 16.0 % (0.0-7.3) H 01/18/22 05:09 Eosinophils % (Manual) 0 % (0.0-4.3) 01/18/22 05:09 Basophils % (Manual) 0 % (0.0-1.8) 01/18/22 05:09 Metamyelocytes % 0 % 01/18/22 05:09 Myelocytes % 0 % 01/18/22 05:09 Promyelocytes % 0 % 01/18/22 05:09 Blast Cells % 0 % 01/18/22 05:09 Nucleated RBC % 7.0 % (0.0-0.9) H 01/18/22 05:09 Seg Neutrophils # Man 7.9 K/mm3 (1.8-7.7) H 01/18/22 05:09 Band Neutrophils # 0.1 K/mm3 01/18/22 05:09 Lymphocytes # (Manual) 1.9 K/mm3 (1.2-5.4) 01/18/22 05:09 Abs React Lymphs (Man) 0.0 K/mm3 01/18/22 05:09 Monocytes # (Manual) 1.9 K/mm3 (0.0-0.8) H 01/18/22 05:09 Eosinophils # (Manual) 0.0 K/mm3 (0.0-0.4) 01/18/22 05:09 Basophils # (Manual) 0.0 K/mm3 (0.0-0.1) 01/18/22 05:09 Metamyelocytes # 0.0 K/mm3 01/18/22 05:09 Myelocytes # 0.0 K/mm3 01/18/22 05:09 Promyelocytes # 0.0 K/mm3 01/18/22 05:09 Blast Cells # 0.0 K/mm3 01/18/22 05:09 WBC Morphology Not Reportable 01/18/22 05:09 Hypersegmented Neuts Not Reportable 01/18/22 05:09 Hyposegmented Neuts Not Reportable 01/18/22 05:09 Hypogranular Neuts Not Reportable 01/18/22 05:09 Smudge Cells Not Reportable 01/18/22 05:09 Toxic Granulation Not Reportable 01/18/22 05:09 Toxic Vacuolation Not Reportable 01/18/22 05:09 Dohle Bodies Not Reportable 01/18/22 05:09 Pelger-Huet Anomaly Not Reportable 01/18/22 05:09 Linda Rods Not Reportable 01/18/22 05:09 Platelet Estimate Consistent w auto 01/18/22 05:09 Clumped Platelets Not Reportable 01/18/22 05:09 Plt Clumps, EDTA Not Reportable 01/18/22 05:09 Large Platelets Not Reportable 01/18/22 05:09 Giant Platelets Not Reportable 01/18/22 05:09 Platelet Satelliting Not Reportable 01/18/22 05:09 Plt Morphology Comment Not Reportable 01/18/22 05:09 RBC Morphology Not Reportable 01/18/22 05:09 Dimorphic RBCs Not Reportable 01/18/22 05:09 Polychromasia Few 01/18/22 05:09 Hypochromasia 2+ 01/18/22 05:09 Poikilocytosis 1+ 01/18/22 05:09 Anisocytosis 2+ 01/18/22 05:09 Microcytosis Not Reportable 01/18/22 05:09 Macrocytosis 2+ 01/18/22 05:09 Spherocytes Not Reportable 01/18/22 05:09 Pappenheimer Bodies Not Reportable 01/18/22 05:09 Sickle Cells Not Reportable 01/18/22 05:09 Target Cells Few 01/18/22 05:09 Tear Drop Cells Few 01/18/22 05:09 Ovalocytes Few 01/18/22 05:09 Helmet Cells Not Reportable 01/18/22 05:09 [place] Bodies Not Reportable 01/18/22 05:09 [place] Rings Not Reportable 01/18/22 05:09 Monica Cells Not Reportable 01/18/22 05:09 Bite Cells Not Reportable 01/18/22 05:09 Crenated Cell Not Reportable 01/18/22 05:09 Elliptocytes Few 01/18/22 05:09 Acanthocytes (Spur) Not Reportable 01/18/22 05:09 Rouleaux Not Reportable 01/18/22 05:09 Hemoglobin C Crystals Not Reportable 01/18/22 05:09 Schistocytes Rare 01/18/22 05:09 Malaria parasites Not Reportable 01/18/22 05:09 Percent Retic 17.99 % (0.78-2.58) H 01/18/22 05:09 Job Bodies Not Reportable 01/18/22 05:09 Hem Pathologist Commnt No 01/18/22 05:09 PT 15.6 Sec. (12.2-14.9) H 01/18/22 17:31 INR 1.08 (0.87-1.13) 01/18/22 17:31 APTT 33.8 Sec. (24.2-36.6) 01/18/22 05:09 Sodium 130 mmol/L (137-145) L 01/18/22 05:09 Potassium 5.3 mmol/L (3.6-5.0) H 01/18/22 05:09 Chloride 98.2 mmol/L (98-107) 01/18/22 05:09 Carbon Dioxide 19 mmol/L (22-30) L 01/18/22 05:09 Anion Gap 18 mmol/L 01/18/22 05:09 BUN 19 mg/dL (9-20) 01/18/22 05:09 Creatinine 1.6 mg/dL (0.8-1.3) H 01/18/22 05:09 Estimated GFR 53 ml/min 01/18/22 05:09 BUN/Creatinine Ratio 12 % 01/18/22 05:09 Glucose 115 mg/dL (75-100) H 01/18/22 05:09 Calcium 8.2 mg/dL (8.4-10.2) L 01/18/22 05:09 Iron 48 ug/dL (49-181) L 01/18/22 17:31 TIBC 197 mcg/dL (250-450) L 01/18/22 17:31 Total Bilirubin 6.70 mg/dL (0.1-1.2) H 01/18/22 17:31 Direct Bilirubin 3.3 mg/dL (0-0.2) H 01/18/22 17:31 Indirect Bilirubin 3.4 mg/dL 01/18/22 17:31 AST 113 units/L (5-40) H 01/18/22 17:31 ALT 106 units/L (7-56) H 01/18/22 17:31 Alkaline Phosphatase 181 units/L (35-129) H 01/18/22 17:31 Troponin T < 0.010 ng/mL (0.00-0.029) 01/18/22 05:09 Total Protein 7.1 g/dL (6.3-8.2) 01/18/22 17:31 Albumin 3.6 g/dL (3.9-5) L 01/18/22 17:31 Albumin/Globulin Ratio 1.0 % 01/18/22 17:31 Lipase 156 units/L (13-60) H 01/18/22 05:09 Vitamin B12 806.8 pg/mL (211-911) 01/18/22 17:31 Folate 10.12 ng/mL (7.3-26.0) 01/18/22 17:31 Urine Color Bhavani (Yellow) 01/18/22 10:34 Urine Turbidity Clear (Clear) 01/18/22 10:34 Urine pH 6.0 (5.0-7.0) 01/18/22 10:34 Ur Specific [place] 1.010 (1.003-1.030) 01/18/22 10:34 Urine Protein 30 mg/dl mg/dL (Negative) 01/18/22 10:34 Urine Glucose (UA) Neg mg/dL (Negative) 01/18/22 10:34 Urine Ketones Neg mg/dL (Negative) 01/18/22 10:34 Urine Blood Mod (Negative) 01/18/22 10:34 Urine Nitrite Neg (Negative) 01/18/22 10:34 Urine Bilirubin Neg (Negative) 01/18/22 10:34 Urine Urobilinogen 4.0 mg/dL (<2.0) 01/18/22 10:34 Ur Leukocyte Esterase Neg (Negative) 01/18/22 10:34 Urine WBC (Auto) 2.0 /HPF (0.0-6.0) 01/18/22 10:34 Urine RBC (Auto) 1.0 /HPF (0.0-6.0) 01/18/22 10:34 U Epithel Cells (Auto) < 1.0 /HPF (0-13.0) 01/18/22 10:34 Ur Renal Epithelial Cell <1 /LPF 01/18/22 10:34 Hepatitis A IgM Ab Non-reactive (NonReactive) 01/18/22 17:31 Hep Bs Antigen Reactive (Negative) 01/18/22 17:31 Hep B Core IgM Ab Non-reactive (NonReactive) 01/18/22 17:31 Hepatitis C Antibody Non-reactive (NonReactive) 01/18/22 17:31 Deg[place]/IV: Voiding Method Toilet Active Medications - Current Medications Current Medications: Generic Name Dose Route Start Last Admin Trade Name Freq PRN Reason Stop Dose Admin Acetaminophen 650 mg 01/18/22 10:07 Acetaminophen 325 Mg Tab PO Q4H PRN Pain MILD(1-3)/Fever >100.5/CAR Hydrocodone Bitart/Acetaminophen 2 each 01/18/22 10:07 Hydrocodone/Acetaminophen 5-325 Mg Tab PO Q6H PRN Pain, Moderate (4-6) Enoxaparin Sodium 40 mg 01/18/22 11:00 01/18/22 11:34 Enoxaparin 40 Mg/0.4 Ml Inj SUB-Q 40 mg QDAY JYOTI Administration Sodium Chloride 1,000 mls @ 75 mls/hr 01/19/22 09:00 Nacl 0.9% 1000 Ml IV DIRECT JYOTI Morphine Sulfate 2 mg 01/18/22 10:07 01/19/22 02:10 Morphine 4 Mg/1 Ml Inj IV 2 mg Q4H PRN Administration Pain , Severe (7-10) Ondansetron HCl 4 mg 01/18/22 10:07 Ondansetron 4 Mg/2 Ml Inj IV Q8H PRN Nausea And Vomiting Pantoprazole Sodium 40 mg 01/18/22 16:30 01/18/22 17:13 Pantoprazole 40 Mg Tab PO 40 mg BIDAC JYOTI Administration Sodium Chloride 10 ml 01/18/22 22:00 01/18/22 21:45 Sodium Chloride 0.9% 10 Ml Flush Syringe IV 10 ml BID JYOTI Administration Sodium Chloride 10 ml 01/18/22 10:07 Sodium Chloride 0.9% 10 Ml Flush Syringe IV PRN PRN LINE FLUSH
[2022-01-19] MEDS ORDERED: SODIUM CHLORIDE 0.9% 1000 ML 1,000 ML IV SCH (09:00)
[2022-01-19] MEDS: PANTOPRAZOLE 40 MG TAB PO SCH ×2 (09:00→17:25)
[2022-01-19] MEDS: ENOXAPARIN 40 MG/0.4 ML INJ SUB-Q SCH (09:00)
--- NOTE | 2022-01-19 14:34 | Anesthesia Consultation ---
Anesthesia Consult and Med Hx Date of service: 01/19/22 - Airway Anesthetic Teeth Evaluation: Poor (multiple missing teeth) ROM Head & Neck: Adequate Mental/Hyoid Distance: Adequate Mallampati Class: Class II Intubation Access Assessment: Probably Good - Pre-Operative Health Status ASA Pre-Surgery Classification: ASA3 Proposed Anesthetic Plan: MAC - Cardiovascular System Hx Hypertension: Yes Hx Cardia Arrhythmia: Yes (atrial flutter) - Gastrointestinal Hx Ulcer: Yes (peptic ulcer disease) Hx Gastroesophageal Reflux Disease: Yes - Hematic Hx Sickle Cell Disease: Yes
--- NOTE | 2022-01-19 14:39 | Anesthesia Day of Surgery ---
Anesthesia Day of Surgery - Day of Surgery Patient Examined: Yes Patient H&P Reviewed: Yes Patient is NPO: Yes
[2022-01-19] MEDS ORDERED: propofoL 200 MG/20 ML VIAL IV ONE (14:43)
--- NOTE | 2022-01-19 14:58 | Operative Report ---
Operative Report Operative Report: Date of procedure: 01/19/2022 Procedure: Esophagogastroduodenoscopy Preprocedure diagnosis: abdominal pain Post procedure diagnosis: hiatal hernia, gastritis Endoscopist: Jorge Luis Luevano MD Anesthesia: Monitored anesthesia care per anesthesia department Medications: Propofol per anesthesia Estimated blood loss: 0 After careful discussion of the nature and purpose of the procedure as well as details the technique risks benefits and alternatives consent was obtained. The patient was placed in the left lateral decubitus position and medicated per anesthesia. The tip of the video endoscope was passed per orum under direct vision into the esophagus and advanced into the stomach and descending duodenum. The scope was withdrawn into the stomach and the stomach then gently insufflated with air. The antrum was normal. The stomach was further insufflated and the scope was then retroflexed and partially withdrawn. The scope was then withdrawn in the forward position. The esophagogastric junction was at 40 cm. The esophageal body was normal throughout except for a small hiatal hernia. The procedure was was well tolerated and the patient was observed in recovery. Findings: 1. A small hiatal hernia but otherwise normal esophagus exam without any signs of esophagitis, varices. 2. Mild erythematous mucosa in the antrum and body. Biopsies obtained. No signs of peptic ulcer disease. 3. Normal duodenal exam. Biopsies obtained. Plan: 1. Resume regular diet. 2. Continue with PPI p.o. dosing. 3. Monitor labs including LFTs and INR. 4. Patient needs to follow-up in outpatient GI clinic either with [facility] or at [facility] for further management of cirrhosis. 5. Recommend hematology consult for evaluation for sickle cell crisis.
--- NOTE | 2022-01-19 16:19 | Post Anesthesia Evaluation ---
- Post Anesthesia Evaluation Patient Participated: Yes Airway Patent: Yes Stable Respiratory Function: Yes Nausea/Vomiting: No Temp > 96.8F: Yes Pain Manageable: Yes Adequeate Hydration: Yes Anesthesia Complications: No
[2022-01-19 18:41] LABS: Hematocrit 22.2 % (35.5-45.6); Hemoglobin 7.7 gm/dl (11.8-15.2); Mean Corpuscular HGB Conc 34 % (32-34); Mean Corpuscular Volume 110 fl (84-94); Platelet Count 211 K/mm3 (140-440); Red Blood Count 2.03 M/mm3 (3.65-5.03)
[2022-01-19 18:46] LABS: Calcium 7.9 mg/dL (8.4-10.2)
[2022-01-19 19:29] LABS: Band Neutrophils # (Manual) 0.1 K/mm3; Basophils % (Manual) 0 % (0.0-1.8); Eosinophils % (Manual) 0 % (0.0-4.3); Total Cells Counted 100
[2022-01-19 19:30] LABS: Anisocytosis 2+; Hypochromasia 2+; Macrocytosis 2+; Ovalocytes Few; Poikilocytosis 1+; Schistocytes Rare; Sickle Cells 1+; Target Cells Few; Tear Drop Cells Few
[2022-01-19 19:31] LABS: Platelet Estimate Consistent w Auto
[2022-01-20] MEDS: MORPHINE 4 MG/1 ML INJ IV PRN (01:55)
[2022-01-20 06:25] LABS: Basophils # (Auto) 0.1 K/mm3 (0.0-0.1); Basophils % (Auto) 0.8 % (0.0-1.8); Eosinophils # (Auto) 0.1 K/mm3 (0.0-0.4); Eosinophils % (Auto) 0.7 % (0.0-4.3); Hemoglobin 6.1 gm/dl (11.8-15.2); Lymphocytes # (Auto) 1.6 K/mm3 (1.2-5.4); Lymphocytes % (Auto) 9.7 % (13.4-35.0); Mean Corpuscular HGB Conc 34 % (32-34); Mean Corpuscular Volume 108 fl (84-94); Monocytes # (Auto) 2.2 K/mm3 (0.0-0.8); Monocytes % (Auto) 13.3 % (0.0-7.3); Platelet Count 178 K/mm3 (140-440); Red Blood Count 1.64 M/mm3 (3.65-5.03); Red Cell Distribution Width 17.5 % (13.2-15.2)
[2022-01-20 06:33] LABS: Hematocrit 17.7 % (35.5-45.6)
[2022-01-20 06:43] LABS: BUN/Creatinine Ratio 17; Blood Urea Nitrogen 24 mg/dL (9-20); Calcium 7.4 mg/dL (8.4-10.2); Hemolysis Index 48
[2022-01-20] MEDS ORDERED: SODIUM CHLORIDE 0.9% 500 ML 500 ML IV ONE (07:50)
--- NOTE | 2022-01-20 09:19 | Gastroenterology Progress Note ---
Assessment and Plan 1. Abdominal pain - unclear etiology. ?pancreatitis but lipase only mildly elevated and CT without signs of pancreatitis. - possible PUD, gastritis vs sickle cell crisis - s/p EGD yesterday which revealed small HH, otherwise normal esophagus w/o signs of esophagitis or varices, mild erythematous mucosa in the antrum and body, normal duodenum exam - continue PPI PO and regular diet - waiting on hematology consult for evaluation of possible sickle cell crisis and drop in h/h w/o overt GI bleeding 2. Possible cirrhosis - CT showing nodular liver appearance - patient denies any prior known h/o cirrhosis - viral hep panel: hep b reactive - monitor LFTs and INR, morning labs pending - needs outpatient f/u with either [facility] or [facility] for further cirrhosis management Subjective Date of service: 01/20/22 Interval history: Pt seen and examined. Lying comfortably in bed. Reports he is doing well. Denies N/V, abd pain or diarrhea. Denies overt GI bleeding. Reports he is tolerating PO intake w/o issues. Objective - Constitutional Vitals: Temp Pulse Resp BP Pulse Ox 98.5 F 115 H 18 111/70 96 01/20/22 07:46 01/20/22 07:46 01/20/22 07:46 01/20/22 07:46 01/20/22 07:46 General appearance: no acute distress - Gastrointestinal General gastrointestinal: Present: soft, non-tender - Neurologic Neurological: alert and oriented x3 - Labs CBC & Chem 7: 01/20/22 04:59 01/20/22 04:59 Labs: Laboratory Results - last 24 hr 01/19/22 01/19/22 01/20/22 16:20 16:20 04:59 WBC 11.3 H 16.9 H RBC 2.03 L 1.64 L Hgb 7.7 L 6.1 L Hct 22.2 L 17.7 L* MCV 110 H 108 H MCH 38 H 37 H MCHC 34 34 RDW 18.0 H 17.5 H Plt Count 211 178 Lymph % (Auto) 9.7 L [place] % (Auto) 13.3 H Eos % (Auto) 0.7 Baso % (Auto) 0.8 Lymph # (Auto) 1.6 [place] # (Auto) 2.2 H Eos # (Auto) 0.1 Baso # (Auto) 0.1 Add Manual Diff Complete Total Counted 100 Seg Neutrophils % 75.5 H Seg Neuts % (Manual) 87.0 H Band Neutrophils % 1.0 Lymphocytes % (Manual) 2.0 L Reactive Lymphs % (Man) 1.0 Monocytes % (Manual) 9.0 H Eosinophils % (Manual) 0 Basophils % (Manual) 0 Metamyelocytes % 0 Myelocytes % 0 Promyelocytes % 0 Blast Cells % 0 Nucleated RBC % 19.0 H Seg Neutrophils # 12.7 H Seg Neutrophils # Man 10.9 H Band Neutrophils # 0.1 Lymphocytes # (Manual) 0.3 L Abs React Lymphs (Man) 0.1 Monocytes # (Manual) 1.1 H Eosinophils # (Manual) 0.0 Basophils # (Manual) 0.0 Metamyelocytes # 0.0 Myelocytes # 0.0 Promyelocytes # 0.0 Blast Cells # 0.0 WBC Morphology Not Reportable Hypersegmented Neuts Not Reportable Hyposegmented Neuts Not Reportable Hypogranular Neuts Not Reportable Smudge Cells Not Reportable Toxic Granulation Not Reportable Toxic Vacuolation Not Reportable Dohle Bodies Not Reportable Pelger-Huet Anomaly Not Reportable Linda Rods Not Reportable Platelet Estimate Consistent w auto Clumped Platelets Not Reportable Plt Clumps, EDTA Not Reportable Large Platelets Not Reportable Giant Platelets Not Reportable Platelet Satelliting Not Reportable Plt Morphology Comment Not Reportable RBC Morphology Not Reportable Dimorphic RBCs Not Reportable Polychromasia Few Hypochromasia 2+ Poikilocytosis 1+ Anisocytosis 2+ Microcytosis Not Reportable Macrocytosis 2+ Spherocytes Not Reportable Pappenheimer Bodies Not Reportable Sickle Cells 1+ Target Cells Few Tear Drop Cells Few Ovalocytes Few Helmet Cells Not Reportable [place] Bodies Not Reportable [place] Rings Not Reportable Mitchell Cells Not Reportable Bite Cells Not Reportable Crenated Cell Not Reportable Elliptocytes Few Acanthocytes (Spur) Not Reportable Rouleaux Not Reportable Hemoglobin C Crystals Not Reportable Schistocytes Rare Malaria parasites Not Reportable Job Bodies Not Reportable Hem Pathologist Commnt No Sodium 140 D Potassium 5.4 H Chloride 107.5 H Carbon Dioxide 14 L Anion Gap 24 BUN 22 H Creatinine 1.5 H Estimated GFR 57 BUN/Creatinine Ratio 15 Glucose 73 L Calcium 7.9 L 01/20/22 04:59 WBC RBC Hgb Hct MCV MCH MCHC RDW Plt Count Lymph % (Auto) [place] % (Auto) Eos % (Auto) Baso % (Auto) Lymph # (Auto) [place] # (Auto) Eos # (Auto) Baso # (Auto) Add Manual Diff Total Counted Seg Neutrophils % Seg Neuts % (Manual) Band Neutrophils % Lymphocytes % (Manual) Reactive Lymphs % (Man) Monocytes % (Manual) Eosinophils % (Manual) Basophils % (Manual) Metamyelocytes % Myelocytes % Promyelocytes % Blast Cells % Nucleated RBC % Seg Neutrophils # Seg Neutrophils # Man Band Neutrophils # Lymphocytes # (Manual) Abs React Lymphs (Man) Monocytes # (Manual) Eosinophils # (Manual) Basophils # (Manual) Metamyelocytes # Myelocytes # Promyelocytes # Blast Cells # WBC Morphology Hypersegmented Neuts Hyposegmented Neuts Hypogranular Neuts Smudge Cells Toxic Granulation Toxic Vacuolation Dohle Bodies Pelger-Huet Anomaly Linda Rods Platelet Estimate Clumped Platelets Plt Clumps, EDTA Large Platelets Giant Platelets Platelet Satelliting Plt Morphology Comment RBC Morphology Dimorphic RBCs Polychromasia Hypochromasia Poikilocytosis Anisocytosis Microcytosis Macrocytosis Spherocytes Pappenheimer Bodies Sickle Cells Target Cells Tear Drop Cells Ovalocytes Helmet Cells [place] Bodies [place] Rings Mitchell Cells Bite Cells Crenated Cell Elliptocytes Acanthocytes (Spur) Rouleaux Hemoglobin C Crystals Schistocytes Malaria parasites Job Bodies Hem Pathologist Commnt Sodium 140 Potassium 4.8 Chloride 109.8 H Carbon Dioxide 19 L Anion Gap 16 BUN 24 H Creatinine 1.4 H Estimated GFR > 60 BUN/Creatinine Ratio 17 Glucose 101 H Calcium 7.4 L
[2022-01-20] MEDS: PANTOPRAZOLE 40 MG TAB PO SCH ×2 (10:07→16:10)
[2022-01-20] MEDS: ENOXAPARIN 40 MG/0.4 ML INJ SUB-Q SCH (10:07)
--- NOTE | 2022-01-20 10:12 | Progress Note ---
Assessment and Plan Assessment and plan: 61-year-old male presents with complaints of abdominal pain. Patient admitted with diagnosis below Abdominal pain Possible cirrhosis Possible sickle cell crisis Left hydronephrosis Hypertension Anemia History of a flutter Hyponatremia Hospital course: 01/18/2022. 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 Urology consultation patient does have elevated lipase revealing a mild acute pancreatitis. Patient denies any alcohol use. We will check lipid profile. However, patient had normal triglycerides 01/02/2022. Patient has a history of cholecystectomy. We will consult GI for further evaluation. Etiology of anemia is unknown. We will check iron studies. Hemoccult stool. 01/19/2022. Etiology of abdominal pain may be secondary to PUD, gastritis VS sickle cell crisis. Patient for EGD today. Continue PPI 01/20/2022. Patient is s/p EGD yesterday which revealed small HH, otherwise normal esophagus w/o signs of esophagitis or varices, mild erythematous mucosa in the antrum and body, normal duodenum exam. Continue PPI and regular diet. Hematology consultation for evaluation of possible sickle cell crisis. Patient with drop in H&H and received PRBCs. No evidence of overt bleeding. CT showin g nodular liver appearance. The patient will need outpatient f/u with either [facility] or [facility] for further cirrhosis management History Interval history: No new issues overnight Hospitalist Physical - Constitutional Vitals: Temp Pulse Resp BP Pulse Ox 98.5 F 115 H 18 111/70 96 01/20/22 07:46 01/20/22 07:46 01/20/22 07:46 01/20/22 07:46 01/20/22 07:46 General appearance: Present: no acute distress, well-nourished - EENT Eyes: Present: PERRL, EOM intact ENT: hearing intact, clear oral mucosa, dentition normal - Neck Neck: Present: supple, normal ROM - Respiratory Respiratory effort: normal Respiratory: bilateral: CTA - Cardiovascular Rhythm: regular Heart Sounds: Present: S1 & S2. Absent: gallop, rub - Extremities Extremities: no ischemia, No edema, Full ROM - Abdominal General gastrointestinal: soft, non-tender, non-distended, normal bowel sounds - Integumentary Integumentary: Present: clear, warm, dry - Neurologic Neurologic: CNII-XII intact, moves all extremities HEART Score - HEART Score Troponin: Troponin T < 0.010 ng/mL (0.00-0.029) 01/18/22 05:09 Results - Labs CBC & Chem 7: 01/20/22 04:59 01/20/22 04:59 Labs: Laboratory Last Values WBC 16.9 K/mm3 (4.5-11.0) H 01/20/22 04:59 RBC 1.64 M/mm3 (3.65-5.03) L 01/20/22 04:59 Hgb 6.1 gm/dl (11.8-15.2) L 01/20/22 04:59 Hct 17.7 % (35.5-45.6) L* 01/20/22 04:59 MCV 108 fl (84-94) H 01/20/22 04:59 MCH 37 pg (28-32) H 01/20/22 04:59 MCHC 34 % (32-34) 01/20/22 04:59 RDW 17.5 % (13.2-15.2) H 01/20/22 04:59 Plt Count 178 K/mm3 (140-440) 01/20/22 04:59 Lymph % (Auto) 9.7 % (13.4-35.0) L 01/20/22 04:59 Major % (Auto) 13.3 % (0.0-7.3) H 01/20/22 04:59 Eos % (Auto) 0.7 % (0.0-4.3) 01/20/22 04:59 Baso % (Auto) 0.8 % (0.0-1.8) 01/20/22 04:59 Lymph # (Auto) 1.6 K/mm3 (1.2-5.4) 01/20/22 04:59 Major # (Auto) 2.2 K/mm3 (0.0-0.8) H 01/20/22 04:59 Eos # (Auto) 0.1 K/mm3 (0.0-0.4) 01/20/22 04:59 Baso # (Auto) 0.1 K/mm3 (0.0-0.1) 01/20/22 04:59 Add Manual Diff Complete 01/19/22 16:20 Total Counted 100 01/19/22 16:20 Seg Neutrophils % 75.5 % (40.0-70.0) H 01/20/22 04:59 Seg Neuts % (Manual) 87.0 % (40.0-70.0) H 01/19/22 16:20 Band Neutrophils % 1.0 % 01/19/22 16:20 Lymphocytes % (Manual) 2.0 % (13.4-35.0) L 01/19/22 16:20 Reactive Lymphs % (Man) 1.0 % 01/19/22 16:20 Monocytes % (Manual) 9.0 % (0.0-7.3) H 01/19/22 16:20 Eosinophils % (Manual) 0 % (0.0-4.3) 01/19/22 16:20 Basophils % (Manual) 0 % (0.0-1.8) 01/19/22 16:20 Metamyelocytes % 0 % 01/19/22 16:20 Myelocytes % 0 % 01/19/22 16:20 Promyelocytes % 0 % 01/19/22 16:20 Blast Cells % 0 % 01/19/22 16:20 Nucleated RBC % 19.0 % (0.0-0.9) H 01/19/22 16:20 Seg Neutrophils # 12.7 K/mm3 (1.8-7.7) H 01/20/22 04:59 Seg Neutrophils # Man 10.9 K/mm3 (1.8-7.7) H 01/19/22 16:20 Band Neutrophils # 0.1 K/mm3 01/19/22 16:20 Lymphocytes # (Manual) 0.3 K/mm3 (1.2-5.4) L 01/19/22 16:20 Abs React Lymphs (Man) 0.1 K/mm3 01/19/22 16:20 Monocytes # (Manual) 1.1 K/mm3 (0.0-0.8) H 01/19/22 16:20 Eosinophils # (Manual) 0.0 K/mm3 (0.0-0.4) 01/19/22 16:20 Basophils # (Manual) 0.0 K/mm3 (0.0-0.1) 01/19/22 16:20 Metamyelocytes # 0.0 K/mm3 01/19/22 16:20 Myelocytes # 0.0 K/mm3 01/19/22 16:20 Promyelocytes # 0.0 K/mm3 01/19/22 16:20 Blast Cells # 0.0 K/mm3 01/19/22 16:20 WBC Morphology Not Reportable 01/19/22 16:20 Hypersegmented Neuts Not Reportable 01/19/22 16:20 Hyposegmented Neuts Not Reportable 01/19/22 16:20 Hypogranular Neuts Not Reportable 01/19/22 16:20 Smudge Cells Not Reportable 01/19/22 16:20 Toxic Granulation Not Reportable 01/19/22 16:20 Toxic Vacuolation Not Reportable 01/19/22 16:20 Dohle Bodies Not Reportable 01/19/22 16:20 Pelger-Huet Anomaly Not Reportable 01/19/22 16:20 Linda Rods Not Reportable 01/19/22 16:20 Platelet Estimate Consistent w auto 01/19/22 16:20 Clumped Platelets Not Reportable 01/19/22 16:20 Plt Clumps, EDTA Not Reportable 01/19/22 16:20 Large Platelets Not Reportable 01/19/22 16:20 Giant Platelets Not Reportable 01/19/22 16:20 Platelet Satelliting Not Reportable 01/19/22 16:20 Plt Morphology Comment Not Reportable 01/19/22 16:20 RBC Morphology Not Reportable 01/19/22 16:20 Dimorphic RBCs Not Reportable 01/19/22 16:20 Polychromasia Few 01/19/22 16:20 Hypochromasia 2+ 01/19/22 16:20 Poikilocytosis 1+ 01/19/22 16:20 Anisocytosis 2+ 01/19/22 16:20 Microcytosis Not Reportable 01/19/22 16:20 Macrocytosis 2+ 01/19/22 16:20 Spherocytes Not Reportable 01/19/22 16:20 Pappenheimer Bodies Not Reportable 01/19/22 16:20 Sickle Cells 1+ 01/19/22 16:20 Target Cells Few 01/19/22 16:20 Tear Drop Cells Few 01/19/22 16:20 Ovalocytes Few 01/19/22 16:20 Helmet Cells Not Reportable 01/19/22 16:20 [place] Bodies Not Reportable 01/19/22 16:20 [place] Rings Not Reportable 01/19/22 16:20 [place] Cells Not Reportable 01/19/22 16:20 Bite Cells Not Reportable 01/19/22 16:20 Crenated Cell Not Reportable 01/19/22 16:20 Elliptocytes Few 01/19/22 16:20 Acanthocytes (Spur) Not Reportable 01/19/22 16:20 Rouleaux Not Reportable 01/19/22 16:20 Hemoglobin C Crystals Not Reportable 01/19/22 16:20 Schistocytes Rare 01/19/22 16:20 Malaria parasites Not Reportable 01/19/22 16:20 Percent Retic 17.99 % (0.78-2.58) H 01/18/22 05:09 Job Bodies Not Reportable 01/19/22 16:20 Hem Pathologist Commnt No 01/19/22 16:20 PT 15.6 Sec. (12.2-14.9) H 01/18/22 17:31 INR 1.08 (0.87-1.13) 01/18/22 17:31 APTT 33.8 Sec. (24.2-36.6) 01/18/22 05:09 Sodium 140 mmol/L (137-145) 01/20/22 04:59 Potassium 4.8 mmol/L (3.6-5.0) 01/20/22 04:59 Chloride 109.8 mmol/L (98-107) H 01/20/22 04:59 Carbon Dioxide 19 mmol/L (22-30) L 01/20/22 04:59 Anion Gap 16 mmol/L 01/20/22 04:59 BUN 24 mg/dL (9-20) H 01/20/22 04:59 Creatinine 1.4 mg/dL (0.8-1.3) H 01/20/22 04:59 Estimated GFR > 60 ml/min 01/20/22 04:59 BUN/Creatinine Ratio 17 % 01/20/22 04:59 Glucose 101 mg/dL (75-100) H 01/20/22 04:59 Calcium 7.4 mg/dL (8.4-10.2) L 01/20/22 04:59 Iron 48 ug/dL (49-181) L 01/18/22 17:31 TIBC 197 mcg/dL (250-450) L 01/18/22 17:31 Total Bilirubin 6.70 mg/dL (0.1-1.2) H 01/18/22 17:31 Direct Bilirubin 3.3 mg/dL (0-0.2) H 01/18/22 17:31 Indirect Bilirubin 3.4 mg/dL 01/18/22 17:31 AST 113 units/L (5-40) H 01/18/22 17:31 ALT 106 units/L (7-56) H 01/18/22 17:31 Alkaline Phosphatase 181 units/L (35-129) H 01/18/22 17:31 Troponin T < 0.010 ng/mL (0.00-0.029) 01/18/22 05:09 Total Protein 7.1 g/dL (6.3-8.2) 01/18/22 17:31 Albumin 3.6 g/dL (3.9-5) L 01/18/22 17:31 Albumin/Globulin Ratio 1.0 % 01/18/22 17:31 Lipase 156 units/L (13-60) H 01/18/22 05:09 Vitamin B12 806.8 pg/mL (211-911) 01/18/22 17:31 Folate 10.12 ng/mL (7.3-26.0) 01/18/22 17:31 Urine Color Bhavani (Yellow) 01/18/22 10:34 Urine Turbidity Clear (Clear) 01/18/22 10:34 Urine pH 6.0 (5.0-7.0) 01/18/22 10:34 Ur Specific Taylor 1.010 (1.003-1.030) 01/18/22 10:34 Urine Protein 30 mg/dl mg/dL (Negative) 01/18/22 10:34 Urine Glucose (UA) Neg mg/dL (Negative) 01/18/22 10:34 Urine Ketones Neg mg/dL (Negative) 01/18/22 10:34 Urine Blood Mod (Negative) 01/18/22 10:34 Urine Nitrite Neg (Negative) 01/18/22 10:34 Urine Bilirubin Neg (Negative) 01/18/22 10:34 Urine Urobilinogen 4.0 mg/dL (<2.0) 01/18/22 10:34 Ur Leukocyte Esterase Neg (Negative) 01/18/22 10:34 Urine WBC (Auto) 2.0 /HPF (0.0-6.0) 01/18/22 10:34 Urine RBC (Auto) 1.0 /HPF (0.0-6.0) 01/18/22 10:34 U Epithel Cells (Auto) < 1.0 /HPF (0-13.0) 01/18/22 10:34 Ur Renal Epithelial Cell <1 /LPF 01/18/22 10:34 Hepatitis A IgM Ab Non-reactive (NonReactive) 01/18/22 17:31 Hep Bs Antigen Reactive (Negative) 01/18/22 17:31 Hep B Core IgM Ab Non-reactive (NonReactive) 01/18/22 17:31 Hepatitis C Antibody Non-reactive (NonReactive) 01/18/22 17:31 Degroot/IV: Voiding Method Urinal Active Medications - Current Medications Current Medications: Generic Name Dose Route Start Last Admin Trade Name Freq PRN Reason Stop Dose Admin Acetaminophen 650 mg 01/18/22 10:07 01/20/22 00:02 Acetaminophen 325 Mg Tab PO 650 mg Q4H PRN Administration Pain MILD(1-3)/Fever >100.5/CAR Hydrocodone Bitart/Acetaminophen 2 each 01/18/22 10:07 Hydrocodone/Acetaminophen 5-325 Mg Tab PO Q6H PRN Pain, Moderate (4-6) Enoxaparin Sodium 40 mg 01/18/22 11:00 01/20/22 10:07 Enoxaparin 40 Mg/0.4 Ml Inj SUB-Q 40 mg QDAY JYOTI Administration Sodium Chloride 1,000 mls @ 75 mls/hr 01/19/22 09:00 01/19/22 09:00 Nacl 0.9% 1000 Ml IV 75 mls/hr DIRECT JYOTI Administration Morphine Sulfate 2 mg 01/18/22 10:07 01/20/22 01:55 Morphine 4 Mg/1 Ml Inj IV 2 mg Q4H PRN Administration Pain , Severe (7-10) Ondansetron HCl 4 mg 01/18/22 10:07 Ondansetron 4 Mg/2 Ml Inj IV Q8H PRN Nausea And Vomiting Pantoprazole Sodium 40 mg 01/18/22 16:30 01/20/22 10:07 Pantoprazole 40 Mg Tab PO 40 mg BIDAC JYOTI Administration Sodium Chloride 10 ml 01/18/22 22:00 01/19/22 22:02 Sodium Chloride 0.9% 10 Ml Flush Syringe IV 10 ml BID JYOTI Administration Sodium Chloride 10 ml 01/18/22 10:07 Sodium Chloride 0.9% 10 Ml Flush Syringe IV PRN PRN LINE FLUSH
--- NOTE | 2022-01-20 11:59 | Electrocardiograph Report ---
[facility] Test Date: 2022-01-18 Test Time: 04:51:05 Pat Name: NICA VIEIRA Department: Room: A460 Gender: M Weblog[employer] Developer: BAILEE LEOS : 1960 Requested By: CHRISTINA SANTANA Order Number: [id number] Reading MD: Erick Stacy Measurements Intervals Lewis Rate: 109 P: -62 VT: 173 QRS: -53 QRSD: 95 T: 55 QT: 356 QTc: 479 Interpretive Statements Sinus or ectopic atrial tachycardia Left anterior fascicular block Minimal ST depression, diffuse leads Compared to ECG 01/02/2022 11:23:16 Left anterior fascicular block now present ST (T wave) deviation now present Ectopic atrial tachycardia, unifocal no longer present Ventricular premature complex(es) no longer present Left-axis deviation no longer present T-wave abnormality no longer present Electronically Signed On 01-20-2022 8:58:59 PDT by Erick Stacy
--- NOTE | 2022-01-20 14:15 | Post Anesthesia Evaluation ---
- Post Anesthesia Evaluation Patient Participated: Yes Airway Patent: Yes Stable Respiratory Function: Yes Nausea/Vomiting: No Temp > 96.8F: Yes Pain Manageable: Yes Adequeate Hydration: Yes Anesthesia Complications: No Block Receding Appropriately: Not Applicable Patient on Ventilator: No
[2022-01-20 16:34] LABS: INR 0.98 (0.87-1.13)
[2022-01-20 21:54] VITALS: BP 123/80
== END 2022-01-20 22:55 | disposition home or self-care (01) | DRG 443 ==
LOC: ED 04:24 → 3A 08:30 → 4A 10:20
PROVIDERS: ADMIT Hospitalist; ATTEND Hospitalist
DX: B19.9 Unspecified viral hepatitis without hepatic coma (principal); K29.70 Gastritis, unspecified, without bleeding; K44.9 Diaphragmatic hernia without obstruction or gangrene; K21.9 Gastro-esophageal reflux disease without esophagitis; I50.9 Heart failure, unspecified; D64.9 Anemia, unspecified; E83.81 Hungry bone syndrome; Z90.49 Acquired absence of other specified parts of digestive tract; Z20.822 Contact with and (suspected) exposure to COVID-19
CPT/HCPCS: 36415; 74022; 74176; 80048; 80053; 80074; 80076; 81001; 82607; 82747; 83010; 83550; 83690; 84484; 85007; 85025; 85045; 85610; 85730; 86850; 86870; 86900; 86901; 86922; 88305; 88342; 93005; 96374; 96375; 99285; G0378; C9113; J1650; J2270; J2405; J2704; J3010; J7030; P9016